=== PATIENT | male | born 1945 | race Caucasian/White ===

== ENCOUNTER 2017-10-21 22:11 | Observation (INO) | payer MEDICARE, MEDICAID ==
[~2017-10-21] VITALS: Ht 182.9 cm; Wt 80.0 kg
[~2017-10-21 22:11] MED LIST: ACET325S8 PR; DUONI NEB; KCL20 PO; LACTGRA PO; LEVA750T PO; LISI-360 PO; NEUR300C PO; THIA100T PO
[2017-10-21 22:30] VITALS: BP 185/84; PULSE 59; RESP 12; TEMP 98.7; O2SAT 95
[2017-10-21 22:36] VITALS: RESP 12; O2SAT 95
[2017-10-21] MEDS ORDERED: SODIUM CHLORIDE 0.9% FLUSH 10 ML FLUSH IV FLUSH PRN (22:45)
--- NOTE | 2017-10-21 22:52 | RADRPT ---
EXAM DATE/TIME: 10/21/2017 22:41 [facility] COMPARISON: No previous studies available for comparison. INDICATIONS : Altered mental status. RADIATION DOSE: 56.35 CTDIvol (mGy) MEDICAL HISTORY : Hepatitis C. Substance abuse. SURGICAL HISTORY : None. ENCOUNTER: Initial ACUITY: 1 day PAIN SCALE: 0/10 LOCATION: cranial TECHNIQUE: Multiple contiguous axial images were obtained of the head. Using automated exposure control and adj ustment of the mA and/or kV according to patient size, radiation dose was kept as low as reasonably a chievable to obtain optimal diagnostic quality images. DICOM format image data is available electro nically for review and comparison. FINDINGS: CEREBRUM: The ventricles and cortical sulci are widened there is a 1 cm cystic area seen in the posterior infer ior right frontal lobe likely related to a old lacunar infarct. There is decreased density in the per iventricular white matter. No evidence of midline shift, mass lesion, hemorrhage or acute infarction . No extra-axial fluid collections are seen. POSTERIOR FOSSA: The cerebellum and brainstem are intact. The 4th ventricle is midline. The cerebellopontine angle i s unremarkable. EXTRACRANIAL: The visualized portion of the orbits is intact. SKULL: The calvaria is intact. No evidence of skull fracture. CONCLUSION: 1. An acute abnormality is not seen. 2. Atrophy. 3. Suspected old lacunar infarct at the posterior inferior right frontal lobe. 4. Mild increased density in the periventricular region likely related to small vessel ischemic pappas keturah Waldron MD on October 21, 2017 at 22:48 Board Certified Radiologist. This report was verified electronically.
[2017-10-21 22:54] LABS: AUTOMATED NEUTROPHIL # 3.6 TH/MM3 (1.8-7.7); BASOPHIL # 0.1 TH/MM3 (0-0.2); BASOPHIL % 1.2 % (0.0-2.0); EOSINOPHIL # 0.1 TH/MM3 (0-0.4); EOSINOPHIL % 1.8 % (0.0-4.0); HEMATOCRIT 45.7 % (39.0-51.0); HEMOGLOBIN 15.7 GM/DL (13.0-17.0); LYMPH % 45.5 % (9.0-44.0); LYMPHOCYTE # 3.6 TH/MM3 (1.0-4.8); MEAN CELL VOLUME 92.9 FL (80.0-100.0); MEAN CORPUSCULAR HEMOGLOBIN 31.8 PG (27.0-34.0); MEAN CORPUSCULAR HGB CONC 34.3 % (32.0-36.0); MEAN PLATELET VOLUME 9.3 FL (7.0-11.0); MONO % 6.7 % (0.0-8.0); MONOCYTE # 0.5 TH/MM3 (0-0.9); NEUT % 44.8 % (16.0-70.0); PLATELET COUNT 165 TH/MM3 (150-450); RED BLOOD COUNT 4.92 MIL/MM3 (4.50-5.90); RED CELL DISTRIBUTION WIDTH 13.4 % (11.6-17.2)
[2017-10-21 22:56] LABS: BILIRUBIN, URINE NEG (NEG); BLOOD, URINE NEG (NEG); GLUCOSE,URINE NEG (NEG); KETONE, URINE NEG (NEG); NITRITE,URINE NEG (NEG); PH, URINE 6.5 (5.0-8.5); URINE COLOR YELLOW (YELLW/STRAW); URINE LEUKOCYTE ESTERASE NEG (NEG)
[2017-10-21 23:09] LABS: INTERNATIONAL NORMALIZED RATIO 1.1 RATIO; PROTHROMBIN TIME - PATIENT 11.1 SEC (9.8-11.6)
[2017-10-21 23:11] LABS: ALT (GPT) 86 U/L (12-78)
--- NOTE | 2017-10-21 23:12 | RADRPT ---
EXAM DATE/TIME: 10/21/2017 22:48 [facility] COMPARISON: No previous studies available for comparison. INDICATIONS : Short of breath after syncopal episode. MEDICAL HISTORY : Hepatitis C. Substance abuse. SURGICAL HISTORY : None. ENCOUNTER: Initial ACUITY: 1 day PAIN SCORE: 0/10 LOCATION: Bilateral chest FINDINGS: Mild bibasilar atelectasis. No pleural effusion. No pneumothorax. Heart size within normal limits. CONCLUSION: Trace bibasilar atelectasis. Otherwise negative. Charlie Juarez MD on October 21, 2017 at 23:10 Board Certified Radiologist. This report was verified electronically.
[2017-10-21 23:14] LABS: ALKALINE PHOSPHATASE 111 U/L (45-117); TOTAL BILIRUBIN ADULT 0.4 MG/DL (0.2-1.0); TOTAL PROTEIN 8.2 GM/DL (6.4-8.2); TROPONIN I 0.02 NG/ML (0.02-0.05)
[2017-10-21 23:22] LABS: ALBUMIN 3.2 GM/DL (3.4-5.0); AST (GOT) 72 U/L (15-37); BICARBONATE 27.3 MEQ/L (21.0-32.0); BLOOD UREA NITROGEN 17 MG/DL (7-18); CHLORIDE 105 MEQ/L (98-107); CREATININE 1.05 MG/DL (0.60-1.30); GLOMERULAR FILTRATION RATE 70 ML/MIN (>89); GLUCOSE,RANDOM 110 MG/DL (74-106); SODIUM (NA) 143 MEQ/L (136-145)
[2017-10-22] VITALS (11 sets, daily range): BP systolic 135–168; BP diastolic 82–92; PULSE 60–85; RESP 16–20; TEMP 97.5–98.3; O2SAT 92–97
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
[2017-10-22] MEDS ORDERED: SODIUM CHLORIDE 0.9% FLUSH 10 ML FLUSH IV FLUSH PRN (03:15)
[2017-10-22] MEDS ORDERED: DEXTROSE 50% IN WATER 50 ML VIAL(D50) IV PUSH PRN (03:15)
[2017-10-22] MEDS ORDERED: GLUCAGON 1 MG/ML VIAL OTHER PRN (03:15)
[2017-10-22] MEDS ORDERED: ENALAPRILAT 1.25 MG/ML VIAL IV PUSH PRN (04:00)
--- NOTE | 2017-10-22 04:10 | HHI.HP ---
[facility] Admission Diagnosis AMS, TIA? Diagnoses: Chief Complaint: ams Travel History International Travel<30 Days: No Contact w/Intl Traveler <30 Da: No Traveled to Known Affected Are: No History of Present Illness 72 y/o male with a history of Hep C, depression, CAD,HTN and neuropathy was brought to the ED from his [facility] for altered mental status. Patient states he does not remember what happened. He is very sleepy at time of exam and only answers some questions. He is able to tell me where he is but not the date. He denies any chest pain. He denies any alcohol or drug use. Per EMS report he was found unresponsive and unable to move bilateral upper extremities, but resolved once arrived to hospital. Tox screen does show positive for opiates and benzodiazepines. Review of Systems Except as stated in HPI: all other systems reviewed are Neg Past Family Social History Past Medical History Hep C Depression CAD Past Surgical History Coronary angiogram and stenting Right orbit bone grafti Reported Medications Reported Meds & Active Scripts Active Reported Kcl 20 Meq Tab (Potassium Chloride) 20 Meq Tabcr 20 Meq PO DAILY 3 Days Lisinopril 10 Mg Tab 10 Mg PO DAILY Thiamine HCl 100 Mg Tab 100 Mg PO DAILY Levaquin 750 Mg Tab (Levofloxacin) 750 Mg Tab 750 Mg PO DAILY 5 Days Tylenol (Acetaminophen) 325 Mg Sup 325 Mg MA Q6H PRN Lactinex (Lactobacillus Acidophilus) 1 Gm Gra 1 Gm PO TID 7 Days Resp: Albuterol/Ipratropium 2.5 Mg/0.5 Mg (Albuterol/Ipratropium) 1 Amp Nebu 1 Amp NEB Q6H PRN Neurontin (Gabapentin) 300 Mg Cap 300 Mg PO 5 TIMES A DAY Allergies: Coded Allergies: penicillin G (Unverified Allergy, Unknown, 01/27/17) Active Ordered Medications Current Medications Medications (Trade) Dose Ordered Sig/Shirlene Route Start Time Stop Time Status Last Admin (NS Flush) 2 ml BID IV FLUSH 10/22/17 09:00 (NS Flush) 2 ml UNSCH PRN IV FLUSH 5/10/18 03:15 (Aspirin Chew) 81 mg DAILY PO 10/22/17 09:00 (NovoLOG SUPPLEMENTAL SCALE) 1 ACHS SQ 10/22/17 08:00 (D50w (Vial) Inj) 50 ml UNSCH PRN IV PUSH 10/22/17 03:15 (Glucagon Inj) 1 mg UNSCH PRN OTHER 10/22/17 03:15 Family History Patient does not know family history Social History Tobacco use: Denies Alcohol use: Denies Physical Exam Vital Signs Vital Signs Date Time Temp Pulse Resp B/P (MAP) Pulse Ox O2 Delivery O2 Flow Rate FiO2 10/21/17 22:36 12 95 Room Air 10/21/17 22:33 59 12 95 Room Air 10/21/17 22:30 98.7 59 12 185/84 (117) 95 Physical Exam GENERAL: This is a well-nourished, well-developed patient, in no apparent distress. SKIN: No rashes, ecchymoses or lesions. Cool and dry. HEAD: Atraumatic. Normocephalic. EYES: Pupils equal round and reactive. NECK: Trachea midline. No JVD or lymphadenopathy. CARDIOVASCULAR: Regular rate and rhythm without murmurs, gallops, or rubs. RESPIRATORY: Clear to auscultation. Breath sounds equal bilaterally. No wheezes , rales, or rhonchi. GASTROINTESTINAL: Abdomen soft, non-tender, nondistended. No hepato-splenomegaly , or palpable masses. No guarding. MUSCULOSKELETAL: Extremities without clubbing, cyanosis, or edema. No joint tenderness, effusion, or edema noted. No calf tenderness. NEUROLOGICAL: sleepy and oriented x 2. Motor and sensory grossly within normal limits. 4 out of 5 muscle strength in all muscle groups. Normal speech. Laboratory Laboratory Tests Test 10/21/17 22:30 10/21/17 22:40 Urine Color YELLOW Urine Turbidity CLEAR Urine pH 6.5 Urine Specific [place] 1.013 Urine Protein NEG Urine Glucose (UA) NEG Urine Ketones NEG Urine Occult Blood NEG Urine Nitrite NEG Urine Bilirubin NEG Urine Urobilinogen 4.0 Urine Leukocyte Esterase NEG Urine RBC LESS THAN 1 Urine WBC 1 Microscopic Urinalysis Comment CATH-CULT NOT IND Urine Opiates Screen POS Urine Barbiturates Screen NEG Urine Amphetamines Screen NEG Urine Benzodiazepines Screen POS Urine Cocaine Screen NEG Urine Cannabinoids Screen NEG White Blood Count 8.0 Red Blood Count 4.92 Hemoglobin 15.7 Hematocrit 45.7 Mean Corpuscular Volume 92.9 Mean Corpuscular Hemoglobin 31.8 Mean Corpuscular Hemoglobin Concent 34.3 Red Cell Distribution Width 13.4 Platelet Count 165 Mean Platelet Volume 9.3 Neutrophils (%) (Auto) 44.8 Lymphocytes (%) (Auto) 45.5 Monocytes (%) (Auto) 6.7 Eosinophils (%) (Auto) 1.8 Basophils (%) (Auto) 1.2 Neutrophils # (Auto) 3.6 Lymphocytes # (Auto) 3.6 Monocytes # (Auto) 0.5 Eosinophils # (Auto) 0.1 Basophils # (Auto) 0.1 CBC Comment DIFF FINAL Differential Comment Prothrombin Time 11.1 Prothromb Time International Ratio 1.1 Activated Partial Thromboplast Time 23.6 Blood Urea Nitrogen 17 Creatinine 1.05 Random Glucose 110 Total Protein 8.2 Albumin 3.2 Calcium Level 9.0 Alkaline Phosphatase 111 Aspartate Amino Transf (AST/SGOT) 72 Alanine Aminotransferase (ALT/SGPT) 86 Total Bilirubin 0.4 Sodium Level 143 Potassium Level 3.8 Chloride Level 105 Carbon Dioxide Level 27.3 Anion Gap 11 Estimat Glomerular Filtration Rate 70 Ammonia 22 Total Creatine Kinase 63 Troponin I 0.02 Ethyl Alcohol Level LESS THAN 3 Result Diagram: 10/21/17223910/21/172239 Imaging Last Impressions Head CT 10/21/172231 Signed Impressions: Service Date/Time: Saturday, October 21, 2017 22:41 - CONCLUSION: 1. An acute abnormality is not seen. 2. Atrophy. 3. Suspected old lacunar infarct at the posterior inferior right frontal lobe. 4. Mild increased density in the periventricular region likely related to small vessel ischemic change. Charlie Waldron MD Chest X-Ray 10/21/172231 Signed Impressions: Service Date/Time: Saturday, October 21, 2017 22:48 - CONCLUSION: Trace bibasilar atelectasis. Otherwise negative. MD Waldo Osorioi VTE Risk Assessment Caprini VTE Risk Assessment: No/Low Risk (score <= 1) Caprini Risk Assessment Model Point Value = 1 Point Value = 2 Point Value = 3 Point Value = 5 Age 41-60 Minor surgery BMI > 25 kg/m2 Swollen legs Varicose veins or History of unexplained or recurrent spontaneous Oral contraceptives or hormone replacement Sepsis (< 1 month) Serious lung disease, including pneumonia (< 1 month) Abnormal pulmonary function Acute myocardial infarction Congestive heart failure (< 1 month) History of inflammatory bowel disease Medical patient at bed rest Age 61-74 Arthroscopic surgery Major open surgery (> 45 min) Laparoscopic surgery (> 45 min) Malignancy Confined to bed (> 72 hours) Immobilizing plaster cast Central venous access Age >= 75 History of VTE Family history of VTE Factor V Leiden Prothrombin [id number] Lupus anticoagulant Anticardiolipin antibodies Elevated serum homocysteine Heparin-induced thrombocytopenia Other congenital or acquired thrombophilia Stroke (< 1 month) Elective arthroplasty Hip, pelvis, or leg fracture Acute spinal cord injury (< 1 month) Prophylaxis Regimen Total Risk Factor Score Risk Level Prophylaxis Regimen 0-1 Low Early ambulation 2 Moderate Order ONE of the following: *Sequential Compression Device (SCD) *Heparin 5000 units SQ BID 3-4 Higher Order ONE of the following medications: *Heparin 5000 units SQ TID *Enoxaparin/Lovenox 40 mg SQ daily (WT < 150 kg, CrCl > 30 mL/min) *Enoxaparin/Lovenox 30 mg SQ daily (WT < 150 kg, CrCl > 10-29 mL/min) *Enoxaparin/Lovenox 30 mg SQ BID (WT < 150 kg, CrCl > 30 mL/min) AND/OR *Sequential Compression Device (SCD) 5 or more Highest Order ONE of the following medications: *Heparin 5000 units SQ TID (Preferred with Epidurals) *Enoxaparin/Lovenox 40 mg SQ daily (WT < 150 kg, CrCl > 30 mL/min) *Enoxaparin/Lovenox 30 mg SQ daily (WT < 150 kg, CrCl > 10-29 mL/min) *Enoxaparin/Lovenox 30 mg SQ BID (WT < 150 kg, CrCl > 30 mL/min) AND *Sequential Compression Device (SCD) Assessment and Plan Problem List: (1) Altered mental status ICD Code: R41.82 - Altered mental status Status: Acute Assessment and Plan 72 y/o male with a history of Hep C, depression, CAD,HTN and neuropathy was brought to the ED from his [facility] for altered mental status. AMS, suspect due to polypharmacy, possible TIA Head CT reviewed and shows no acute abnormality, old lacunar infarct at the posterior inferior right frontal lobe Tox screen shows positive benzo and opiates -MRI ordered -PT/OT/ST -Lipid panel and A1C ordered -Consult neurology -Awaiting med rec from [facility] -2d echo, US carotids ordered -Hold home gabapentin HTN, chronic -vasotec prn until med rec if verified, monitor vitals DVT prophylaxis: SCDs Discussed Condition With Patient Problem Qualifiers (1) Altered mental status: Qualified Codes: R41.82 - Altered mental status, unspecified Britni Smart October 22, 2017 04:10
[2017-10-22] MEDS ORDERED: ASPI-516 CHEW (05:22)
[2017-10-22] MEDS ORDERED: DULO1CAP3 PO (05:22)
[2017-10-22] MEDS ORDERED: OMEP20TA93 PO (05:22)
[2017-10-22] MEDS ORDERED: HYDR-3133 PO (05:22)
[2017-10-22] MEDS ORDERED: VARE1 PO (05:22)
[2017-10-22] MEDS ORDERED: GABA600T PO (05:22)
[2017-10-22] MEDS ORDERED: CYAN1TAB24 (05:22)
[2017-10-22] MEDS ORDERED: MORP1TAB24 PO (05:22)
[2017-10-22] MEDS: INSULIN ASPART SUPPLEMENTAL SCALE SQ SCH ×4 (08:00→21:00)
[2017-10-22] MEDS: DULoxetine HCl DR 60 MG CAP PO SCH (08:47)
[2017-10-22] MEDS: SODIUM CHLORIDE 0.9% FLUSH 10 ML FLUSH IV FLUSH SCH ×2 (08:47→21:00)
--- NOTE | 2017-10-22 08:50 | RADRPT ---
EXAM DATE/TIME: 10/22/2017 07:50 [facility] COMPARISON: No previous studies available for comparison. INDICATIONS : Transient ischemic attack. MEDICAL HISTORY : Hypertension. Chronic obstructive pulmonary disease. Hepatitis C. Neuropathy. Coronary artery disease . Depression. Anxiety. SURGICAL HISTORY : Stent placement. Fractured right orbit with bone graft repair. ENCOUNTER: Initial ACUITY: 2 days PAIN SCORE: 0/10 LOCATION: Bilateral neck PEAK SYSTOLIC VELOCITIES (cm/sec): ICA/CCA RATIO: Right: 0.8 Left: 0.8 ICA: Right: 60 Left: 107 CCA: Right: 76 Left: 92 ECA: Right: 62 Left: 107 VERTEBRAL: Right: 49 antegrade Left: 42 antegrade Elevated flow velocities and ICA/CCA ratios have been found to correlate with increased degrees of vessel stenosis, calculated as percentage of diameter relative to a normal segment of distal ICA/CCA FINDINGS: RIGHT CAROTID: Minimal soft plaque in the right carotid bulb. The waveforms are within normal limits. LEFT CAROTID: No significant stenosis is visualized. The waveforms are within normal limits. VERTEBRAL ARTERIES: Antegrade flow is seen in both vertebral arteries. MISCELLANEOUS: None. CONCLUSION: 1. Minimal soft plaque in right carotid bulb. No significant atherosclerotic disease on the left. 2. Otherwise, no sonographic or Doppler findings of a hemodynamically significant stenosis. Antegrade flow in both vertebral arteries. Hari Demarco MD on October 22, 2017 at 8:46 Board Certified Radiologist. This report was verified electronically.
[2017-10-22] MEDS ORDERED: ASPIRIN 81 MG CHEW TAB PO SCH (09:00)
[2017-10-22] MEDS ORDERED: PANTOPRAZOLE SOD 20 MG DELAYED RELEASE TAB PO SCH (09:00)
--- NOTE | 2017-10-22 10:02 | MB ---
cc: Abdirizak Loja MD DATE: 10/22/2017 HISTORY OF PRESENT ILLNESS: A 72-year-old right-handed man with a history of cardiac stent, hepatitis C, low back pain. He takes morphine 15 mg t.i.d. Some neuropathy, who lives in an [facility], walks with a cane or walker due to low back pain. 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 He does take 81 mg of aspirin a day. He quit smoking 3 days ago. He quit Chantix about 2 days ago. About 6 months ago, he had an episode where when he woke up, he could not control his arms or legs. It was brief and then for the last 4 days this happened quite a few times and if he takes a nap or in the morning he would wake up and he cannot control his arms or legs. Nothing above the neck. No neck pain. No headache, chest pain or palpitations. He has never had a seizure. No odd smells, tastes or dj vu. He has not woken up, wet the bed or bit his tongue. Does not happen during the day, only when he wakes up. He otherwise sleeps well. The ER note from the ER docs says EMS, he was noted to have an episode, he was unresponsive, slurred speech, difficulty moving both arms. This resolved. REVIEW OF SYSTEMS: Denies any diabetes, hypertension, hypercholesterolemia, atrial fibrillation, Coumadin, renal, pulmonary disease, thyroid disease, lupus, ulcer, cancer, seizure or stroke. SOCIAL HISTORY: He quit smoking 2 days ago, he quit drinking a year ago. Lives in [facility]. FAMILY HISTORY: Negative for cancer, seizure, stroke. ALLERGIES: PENICILLIN. MEDICATIONS: At home: Potassium, lisinopril, thiamine, Levaquin 750, Tylenol, Lactinex, Neurontin 300. He is also on morphine and tells me 15 t.i.d. and a baby aspirin a day. PAST MEDICAL HISTORY: Also some hypertension and depression. PHYSICAL EXAMINATION: VITAL SIGNS: Sinus rhythm, afebrile, 135/88, 18, 69. NECK: No carotid bruits. HEART: Regular rate and rhythm. I do not detect a murmur. NEUROLOGIC: Pupils are equal. Visual sanchez are full. Extraocular movements are intact without nystagmus. Face is symmetric with normal sensation. Tongue was midline. There is no drift. There is no asterixis. He has normal strength in upper and lower extremities bilaterally including all muscles of the arms and hands. DTRs are trace to absent throughout. Toes are downgoing bilaterally. There is no ankle clonus. Tone is normal throughout. Pinprick is intact throughout upper extremities, lower extremities and face and the occiput bilaterally. He is not ataxic on [id number] or [id number]. He had normal gait. Speech is fluent. He is not aphasic. LABORATORY DATA: CBC was normal. RPR has been negative in the past, remotely. Urine drug screen positive for opiates, benzos. UA is negative. Basic metabolic profile was normal. Glucose was normal. LFTs are elevated, higher than they were in 2014 with an AST of 72, ALT 86. Ammonia level is 22. Troponins negative. Thyroid was normal back in 2008. Coags normal. CBC unremarkable. Carotid ultrasound was negative and a CAT scan of his brain showed old inferior right deep frontal lobe encephalomalacia around region that appeared to be present on other old scans back in 2013 by report. Those films unable to pull-up. IMPRESSION: Unclear about the etiology from his reports. I was thinking he could have cervical spinal stenosis where his head is in a certain position that he cannot control his arms or legs. There is no evidence for myelopathy on exam. Check an MRI of the cervical spine. A TIA could be considered. The MRI of the brain has been ordered and we will check some additional blood work on him, an EEG. Continue on 325 of aspirin a day. I will be following him with you in the hospital. MD MUNIRA He/NARAYAN , 09:32 AM , 10:01 AM
[2017-10-22] MEDS ORDERED: GADODIAMIDE PF 287 MG/ML 20 ML VIAL (for RAD MRI) IVCONTRAST ONE ×2 (11:30→12:45)
--- NOTE | 2017-10-22 11:31 | RADRPT ---
EXAM DATE/TIME: 10/22/2017 10:59 [facility] COMPARISON: No previous studies available for comparison. INDICATIONS : Slurred speech. Weakness in both arms. CVA. MEDICAL HISTORY : Hepatitis C. Cardiovascular disease SURGICAL HISTORY : Coronary artery stent. Right orbital bone graft. ENCOUNTER: Subsequent ACUITY: 2 day PAIN SCORE: 0/10 LOCATION: head. Please note a normal MRA of the brain does not entirely exclude the possibility of a small aneurysm, nor the possibility of distal intracranial vessel disease. TECHNIQUE: 3D time of flight MRA was performed. Source images, multiplanar STS MIP, and 3D volume MIP reconstru ctions were reviewed. FINDINGS: There is excellent visualization of the major intracranial arteries out to the second-order branch ve ssels. There is no evidence for aneurysm, vessel truncation or stenosis, and no evidence for vascula r malformation. CONCLUSION: Normal examination. Charlie Frederick MD on October 22, 2017 at 11:25 Board Certified Radiologist. This report was verified electronically.
--- NOTE | 2017-10-22 12:11 | RADRPT ---
EXAM DATE/TIME: 10/22/2017 10:59 [facility] COMPARISON: No previous studies available for comparison. INDICATIONS : Slurred speech. Weakness in both arms. CVA. CONTRAST: 20 cc Omniscan (gadodiamide) IV MEDICAL HISTORY : Hepatitis C. Cardiovascular disease SURGICAL HISTORY : Carotid endarterectomy. Right orbital bone graft. ENCOUNTER: Subsequent ACUITY: 2 day PAIN SCORE: 0/10 LOCATION: head. TECHNIQUE: Multiplanar, multisequence MRI of the brain was performed both prior to and following the administrat ion of paramagnetic contrast. FINDINGS: CEREBRUM: The ventricles and cortical sulci are widened. There is an oval 1 cm cystic area seen in the inferior medial posterior right frontal lobe without mass effect. No evidence of midline shift, mass lesion, hemorrhage or acute infarction. No extraaxial fluid collections are seen. The pituitary gland and suprasellar cistern are normal in configuration. WHITE MATTER: There are scattered and increased signal in the periventricular white matter. POSTERIOR FOSSA: The cerebellum and brainstem are intact. The 4th ventricle is midline. The cerebellopontine angle is unremarkable. The cerebellar tonsils are normal in position. DIFFUSION IMAGING: No focal areas of restricted diffusion are seen. No evidence of acute infarction. EXTRACRANIAL: The visualized portions of the orbits and paranasal sinuses are unremarkable. POST-CONTRAST: No abnormal areas of parenchymal or dural enhancement. No evidence of blood-brain barrier breakdown. CONCLUSION: 1. No acute abnormality seen. 2. Age-related atrophy and suspected small vessel ischemic change in the white matter. 3. 1 cm cystic area in the right frontal lobe likely related to a focal area of encephalomalacia from prior insult. Charlie Waldron MD on October 22, 2017 at 12:02 Board Certified Radiologist. This report was verified electronically.
--- NOTE | 2017-10-22 12:11 | HHI.PR ---
Subjective Remarks Follow-up AMS/TIA/rule out cervical spinal stenosis October 22, 2017-patient seen and examined, reports some improvement of symptoms since admission. Objective Vitals Vital Signs Date Time Temp Pulse Resp B/P (MAP) Pulse Ox O2 Delivery O2 Flow Rate FiO2 10/22/17 11:57 97.7 85 20 160/92 (114) 92 10/22/17 07:56 97.8 69 18 135/88 (104) 93 10/22/17 07:20 70 10/22/17 06:08 60 10/22/17 05:23 10/22/17 05:18 98.3 64 16 146/90 (108) 97 10/22/17 05:14 98.3 64 16 146/90 (108) 97 10/22/17 04:23 61 17 164/84 (110) 95 Room Air 10/21/17 22:36 12 95 Room Air 10/21/17 22:33 59 12 95 Room Air 10/21/17 22:30 98.7 59 12 185/84 (117) 95 Result Diagram: 10/21/17223910/21/172239 Imaging Last Impressions Head Magnetic Resonance Angiography 10/22/1728 Signed Impressions: Service Date/Time: October 10:59 - CONCLUSION: Normal examination. Charlie Frederick MD Carotid Artery Ultrasound 10/22/17 0000 Signed Impressions: Service Date/Time: October 07:50 - CONCLUSION: 1. Minimal soft plaque in right carotid bulb. No significant atherosclerotic disease on the left. 2. Otherwise, no sonographic or Doppler findings of a hemodynamically significant stenosis. Antegrade flow in both vertebral arteries. Hari Demarco MD Head CT 10/21/172231 Signed Impressions: Service Date/Time: Saturday, October 21, 2017 22:41 - CONCLUSION: 1. An acute abnormality is not seen. 2. Atrophy. 3. Suspected old lacunar infarct at the posterior inferior right frontal lobe. 4. Mild increased density in the periventricular region likely related to small vessel ischemic change. Charlie Waldron MD Chest X-Ray 10/21/172231 Signed Impressions: Service Date/Time: Saturday, October 21, 2017 22:48 - CONCLUSION: Trace bibasilar atelectasis. Otherwise negative. Charlie Juarez MD Objective Remarks GENERAL: SKIN: Warm and dry. HEAD: Normocephalic. EYES: No scleral icterus. No injection or drainage. NECK: Supple, trachea midline. No JVD or lymphadenopathy. CARDIOVASCULAR: Regular rate and rhythm without murmurs, gallops, or rubs. RESPIRATORY: Breath sounds equal bilaterally. No accessory muscle use. GASTROINTESTINAL: Abdomen soft, non-tender, nondistended. MUSCULOSKELETAL: No cyanosis, or edema. BACK: Nontender without obvious deformity. No CVA tenderness. A/P Problem List: (1) Altered mental status ICD Code: R41.82 - Altered mental status Status: Acute Assessment and Plan 72-year-old man with AMS, suspect due to polypharmacy, possible TIA Rule out cervical spinal stenosis Head CT reviewed and shows no acute abnormality, old lacunar infarct at the posterior inferior right frontal lobe Tox screen shows positive benzo and opiates -brain/cervical MRI ordered -PT/OT/ST -Appreciate input from neurology -2d echo, US carotids ordered HTN, chronic -Allow for permissive hypertension DVT prophylaxis: SCDs Problem Qualifiers (1) Altered mental status: Qualified Codes: R41.82 - Altered mental status, unspecified Hamilton Noguera MD October 22, 2017 12:11
--- NOTE | 2017-10-22 12:17 | RADRPT ---
EXAM DATE/TIME: 10/22/2017 10:59 [facility] COMPARISON: No previous studies available for comparison. INDICATIONS : Stenosis. CONTRAST: 20 cc Omniscan (gadodiamide) IV MEDICAL HISTORY : Hepatitis C. Cardiovascular disease SURGICAL HISTORY : Coronary artery stent. Right orbital bone graft. ENCOUNTER: Subsequent ACUITY: 2 day PAIN SCORE: 0/10 LOCATION: neck. Percent stenosis is calculated using the diameter of the stenotic region over the diameter of the nor mal distal internal carotid artery. TECHNIQUE: Bolus infused MRA of the extracranial circulation was performed using a neurovascular coil. Post pro cessing was performed including rotating subvolume maximum intensity projections of each carotid chi ry, rotating full volume maximum intensity projections of both carotid arteries, sagittal and coronal sliding thin slab reformations of each carotid artery, and left oblique sliding thin slab reformatio n through the aortic arch to include the origin of the arch branch vessels. FINDINGS: AORTIC ARCH: There is a three vessel origin of the great vessels from the aorta. No evidence of ostial narrowing. RIGHT CAROTID: The common carotid artery is intact. The carotid bulb has a normal configuration without ulceration or narrowing. The internal carotid artery lumen is smooth without stenosis. The external carotid ar rambo is intact. LEFT CAROTID: The common carotid artery is intact. The carotid bulb has a normal configuration without ulceration or narrowing. The internal carotid artery lumen is smooth without stenosis. The external carotid ar rambo is intact. VERTEBRALS: The vertebral arteries have a symmetric diameter. No stenotic lesions are seen. CONCLUSION: Normal examination. Charlie Waldron MD on October 22, 2017 at 12:10 Board Certified Radiologist. This report was verified electronically.
--- NOTE | 2017-10-22 12:22 | RADRPT ---
EXAM DATE/TIME: 10/22/2017 10:59 [facility] COMPARISON: No previous studies available for comparison. INDICATIONS : Bilateral arm weakness. MEDICAL HISTORY : Hepatitis C. Cardiovascular disease SURGICAL HISTORY : Coronary artery stent. Right orbital bone graft. ENCOUNTER: Subsequent ACUITY: 2 day PAIN SCORE: 0/10 LOCATION: neck. TECHNIQUE: Multiplanar, multisequence MRI examination of the cervical spine was performed. FINDINGS: VERTEBRAE: Normal vertebral body height. Homogeneous marrow signal. ALIGNMENT: No evidence of subluxation. CORD: Normal configuration and signal. POST FOSSA: The cerebellar tonsils are normal in position. C2-C3: The thecal sac has a normal configuration. There is no evidence of disc herniation or spinal canal s tenosis. The neural foramina are patent bilaterally. C3-C4: The thecal sac has a normal configuration. There is no evidence of disc herniation or spinal canal s tenosis. The neural foramina are patent bilaterally. C4-C5: The thecal sac has a normal configuration. There is no evidence of disc herniation or spinal canal s tenosis. The neural foramina are patent bilaterally. C5-C6: There is mild central disc protrusion causing a mild impression on the thecal sac. There is a thin la jas of CSF surrounding the cord. The neural foramina are patent bilaterally. C6-C7: The thecal sac has a normal configuration. There is no evidence of disc herniation or spinal canal s tenosis. The neural foramina are patent bilaterally. C7-T1: The thecal sac has a normal configuration. There is no evidence of disc herniation or spinal canal s tenosis. The neural foramina are patent bilaterally. CONCLUSION: Mild central disc protrusion at the C5-C6 level. Charlie Waldron MD on October 22, 2017 at 12:16 Board Certified Radiologist. This report was verified electronically.
[2017-10-22] MEDS: SODIUM CHLOR 0.9% 1000 ML INJ 1,000 ML IV SCH ×2 (12:44→23:54)
[2017-10-22] MEDS: ASPIRIN EC 325 MG TABEC PO SCH (12:44)
[2017-10-22] MEDS ORDERED: PANTOPRAZOLE SOD 40 MG DELAYED RELEASE TAB PO ONE (13:30)
[2017-10-22 13:49] LABS: C-REACTIVE PROTEIN 0.78 MG/DL (0.00-0.30)
[2017-10-22] MEDS ORDERED: PANTOPRAZOLE SOD 20 MG DELAYED RELEASE TAB PO ONE (14:00)
[2017-10-22 14:15] LABS: RHEUMATOID FACTOR SCREEN NEGATIVE (NEGATIVE)
[2017-10-22 14:34] LABS: CHOLESTEROL/ HDL RATIO 3.94 RATIO; FOLATE 12.8 NG/ML (3.1-17.5); FREE T4 0.95 NG/DL (0.76-1.46); HDL CHOLESTEROL 47.4 MG/DL (40.0-60.0)
--- NOTE | 2017-10-22 16:05 | MG ---
cc: Jena Vizcaino MD DATE OF : 1945 AGE: [age] years old. EEG NUMBER: [id number] REFERRING PHYSICIAN: MD Harsha ROOM: H90. NOTE: Awake. Hyperventilation and photic done. CT showing atrophy, old lacune of the brain at the posterior frontal right lobe. Admitted with change in mental status, unresponsive, some slurred speech. History of hypertension, hepatitis C, alcohol, tobacco use. MEDICATIONS: 1. Aspirin. 2. Insulin. 3. Cymbalta. 4. Protonix. DESCRIPTION OF RECORD: The patient has an overall background of 8 Hz, 40 microvolts. A lot of eye movement, muscle artifact is seen. Photic stimulation was done with a posterior driving response, washcloth over the patient's eyes. Overall normal alpha rhythm, symmetrical background. No epileptic activity. IMPRESSION: Normal EEG without any epileptiform features. Clinical correlation. Jena Vizcaino MD DF/CHRISTIAN , 03:41 PM , 04:04 PM
[2017-10-22 17:01] LABS: HEMOGLOBIN A1C 5.7 % (4.3-6.0)
--- NOTE | 2017-10-22 19:43 | EKG ---
Date Performed: 10/21/2017 Time Performed: 22:23:31 PTAGE: 72 years EKG: Sinus rhythm NORMAL ECG Since the PREVIOUS TRACING , no significant change noted PREVIOUS TRACIN12/22/2011 12.56 DOCTOR: Alok Lee Interpretating Date/Time 10/22/2017 19:42:44
[2017-10-23 03:43] VITALS: BP 151/72; PULSE 67; RESP 16; TEMP 97.7; O2SAT 93
--- NOTE | 2017-10-23 07:02 | HHI.PR ---
Objective Vital Signs Date Time Temp Pulse Resp B/P (MAP) Pulse Ox O2 Delivery O2 Flow Rate FiO2 10/23/17 03:43 97.7 67 16 151/72 (98) 93 10/22/17 23:37 97.5 79 16 168/87 (114) 96 10/22/17 23:05 74 10/22/17 21:04 97.5 64 18 156/82 (106) 95 10/22/17 16:46 97.6 73 19 144/85 (104) 94 10/22/17 11:57 97.7 85 20 160/92 (114) 92 10/22/17 07:56 97.8 69 18 135/88 (104) 93 10/22/17 07:20 70 Result Diagram: 10/21/17223910/21/172239 Objective Remarks awakens no asterixis moves all well now Assessment and Plan Assessment and Plan imp mri/a/a nl eeg nl labs abg ok ldl inc med team could sart statin but hx lft inc could make worse acc to nurse some myoclonic jerks at times at noc we will set up sleep study o/p if echo nl ok to dc and fu office Abdirizak Loja MD October 23, 2017 07:02
[2017-10-23 07:24] LABS: AUTOMATED NEUTROPHIL # 3.3 TH/MM3 (1.8-7.7); BASOPHIL % 0.5 % (0.0-2.0); EOSINOPHIL # 0.1 TH/MM3 (0-0.4); EOSINOPHIL % 1.5 % (0.0-4.0); HEMATOCRIT 45.6 % (39.0-51.0); HEMOGLOBIN 15.6 GM/DL (13.0-17.0); LYMPH % 37.8 % (9.0-44.0); LYMPHOCYTE # 2.3 TH/MM3 (1.0-4.8); MEAN CORPUSCULAR HEMOGLOBIN 31.5 PG (27.0-34.0); MEAN CORPUSCULAR HGB CONC 34.3 % (32.0-36.0); MEAN PLATELET VOLUME 9.3 FL (7.0-11.0); MONO % 6.4 % (0.0-8.0); MONOCYTE # 0.4 TH/MM3 (0-0.9); NEUT % 53.8 % (16.0-70.0); PLATELET COUNT 164 TH/MM3 (150-450); RED BLOOD COUNT 4.96 MIL/MM3 (4.50-5.90); RED CELL DISTRIBUTION WIDTH 13.4 % (11.6-17.2); WHITE BLOOD COUNT 6.2 TH/MM3 (4.0-11.0)
[2017-10-23 07:59] LABS: CHOLESTEROL/ HDL RATIO 4.14 RATIO; HDL CHOLESTEROL 44.4 MG/DL (40.0-60.0)
[2017-10-23] MEDS: INSULIN ASPART SUPPLEMENTAL SCALE SQ SCH ×2 (08:00→12:00)
[2017-10-23 08:12] VITALS: BP 189/90; PULSE 68; RESP 20; TEMP 98.9; O2SAT 96
[2017-10-23] MEDS: DULoxetine HCl DR 60 MG CAP PO SCH (08:15)
[2017-10-23] MEDS: SODIUM CHLORIDE 0.9% FLUSH 10 ML FLUSH IV FLUSH SCH (08:16)
[2017-10-23] MEDS: ASPIRIN EC 325 MG TABEC PO SCH (08:16)
[2017-10-23] MEDS ORDERED: PANTOPRAZOLE SOD 20 MG DELAYED RELEASE TAB PO SCH (09:00)
[2017-10-23] MEDS ORDERED: PANTOPRAZOLE SOD 40 MG DELAYED RELEASE TAB PO SCH (09:00)
[2017-10-23] MEDS ORDERED: INFLUENZA VIRUS VACCINE (QUADRIVALENT) 0.5 ML SYR IM ONE (10:00)
--- NOTE | 2017-10-23 10:04 | HHI.PR ---
Subjective Remarks Follow-up AMS/TIA/rule out cervical spinal stenosis October 22, 2017-patient seen and examined, reports some improvement of symptoms since admission. October 23, 2017-patient seen and examined, alert and oriented 3, no acute event overnight. Objective Vitals Vital Signs Date Time Temp Pulse Resp B/P (MAP) Pulse Ox O2 Delivery O2 Flow Rate FiO2 10/23/17 08:12 98.9 68 20 189/90 (123) 96 10/23/17 03:43 97.7 67 16 151/72 (98) 93 10/22/17 23:37 97.5 79 16 168/87 (114) 96 10/22/17 23:05 74 10/22/17 21:04 97.5 64 18 156/82 (106) 95 10/22/17 16:46 97.6 73 19 144/85 (104) 94 10/22/17 11:57 97.7 85 20 160/92 (114) 92 Result Diagram: 10/23/17 0647 10/21/17 2240 Imaging Last Impressions Neck Magnetic Resonance Angiography 10/22/17927 Signed Impressions: Service Date/Time: October 10:59 - CONCLUSION: Normal examination. Charlie Waldron MD Head Magnetic Resonance Angiography 10/22/17927 Signed Impressions: Service Date/Time: October 10:59 - CONCLUSION: Normal examination. Charlie Frederick MD Cervical Spine MRI 10/22/17927 Signed Impressions: Service Date/Time: October 10:59 - CONCLUSION: Mild central disc protrusion at the C5-C6 level. Charlie Waldron MD Brain MRI 10/22/17927 Signed Impressions: Service Date/Time: October 10:59 - CONCLUSION: 1. No acute abnormality seen. 2. Age-related atrophy and suspected small vessel ischemic change in the white matter. 3. 1 cm cystic area in the right frontal lobe likely related to a focal area of encephalomalacia from prior insult. Charlie Waldron MD Carotid Artery Ultrasound 10/22/17 0000 Signed Impressions: Service Date/Time: October 07:50 - CONCLUSION: 1. Minimal soft plaque in right carotid bulb. No significant atherosclerotic disease on the left. 2. Otherwise, no sonographic or Doppler findings of a hemodynamically significant stenosis. Antegrade flow in both vertebral arteries. Hari Demarco MD Head CT 10/21/172231 Signed Impressions: Service Date/Time: Saturday, October 21, 2017 22:41 - CONCLUSION: 1. An acute abnormality is not seen. 2. Atrophy. 3. Suspected old lacunar infarct at the posterior inferior right frontal lobe. 4. Mild increased density in the periventricular region likely related to small vessel ischemic change. Charlie Waldron MD Chest X-Ray 10/21/172231 Signed Impressions: Service Date/Time: Saturday, October 21, 2017 22:48 - CONCLUSION: Trace bibasilar atelectasis. Otherwise negative. Charlie Juarez MD Objective Remarks GENERAL: NAD SKIN: Warm and dry. HEAD: Normocephalic. EYES: No scleral icterus. No injection or drainage. NECK: Supple, trachea midline. No JVD or lymphadenopathy. CARDIOVASCULAR: Regular rate and rhythm without murmurs, gallops, or rubs. RESPIRATORY: Breath sounds equal bilaterally. No accessory muscle use. GASTROINTESTINAL: Abdomen soft, non-tender, nondistended. MUSCULOSKELETAL: No cyanosis, or edema. BACK: Nontender without obvious deformity. No CVA tenderness. A/P Problem List: (1) Altered mental status ICD Code: R41.82 - Altered mental status Status: Acute Assessment and Plan 72-year-old man with AMS, suspect due to polypharmacy, possible TIA-Resolved Head CT reviewed and shows no acute abnormality, old lacunar infarct at the posterior inferior right frontal lobe Tox screen shows positive benzo and opiates -brain/cervical MRI normal -PT/OT/ST -Appreciate input from neurology -US carotids normal -EEG normal -2D echo pending HTN, chronic -start Low dose Lopressor 50mg BID Hyperlipidemia LDL elevated however secondary to elevated LFTs with holding stating statin DVT prophylaxis: SCDs Problem Qualifiers (1) Altered mental status: Qualified Codes: R41.82 - Altered mental status, unspecified Hamilton Noguera MD October 23, 2017 10:04
--- NOTE | 2017-10-23 10:05 | HHI.DS ---
Discharge Summary Admission Date October 22, 2017 at 03:06 Discharge Date: October 23, 2017 Admitting Diagnosis AMS, TIA? (1) Altered mental status ICD Code: R41.82 - Altered mental status Status: Acute Procedures none Brief History - From Admission 72 y/o male with a history of Hep C, depression, CAD,HTN and neuropathy was brought to the ED from his [facility] for altered mental status. Patient states he does not remember what happened. He is very sleepy at time of exam and only answers some questions. He is able to tell me where he is but not the date. He denies any chest pain. He denies any alcohol or drug use. Per EMS report he was found unresponsive and unable to move bilateral upper extremities, but resolved once arrived to hospital. Tox screen does show positive for opiates and benzodiazepines. CBC/BMP: 10/23/17 0647 10/21/17 2240 Significant Findings Laboratory Tests Test 10/21/17 22:30 10/21/17 22:40 10/22/17 09:43 10/22/17 13:08 Urine Urobilinogen 4.0 MG/DL (LESS THAN Urine Opiates Screen POS (NEG) Urine Benzodiazepines Screen POS (NEG) Lymphocytes (%) (Auto) 45.5 % (9.0-44.0) Activated Partial Thromboplast Time 23.6 SEC (24.3-30.1) Random Glucose 110 MG/DL (74-106) Albumin 3.2 GM/DL (3.4-5.0) Aspartate Amino Transf (AST/SGOT) 72 U/L (15-37) Alanine Aminotransferase (ALT/SGPT) 86 U/L (12-78) Estimat Glomerular Filtration Rate 70 ML/MIN (>89) Arterial Blood pH 7.43 (7.380-7.420) Arterial Blood Partial Pressure CO2 36 mmHg (38-42) Arterial Blood Oxygen Content 22.0 Vol % (12.0-20.0) Blood Gas Hemoglobin 16.4 G/DL (12.0-16.0) C-Reactive Protein 0.78 MG/DL (0.00-0.30) LDL Cholesterol 120 MG/DL (0-99) Test 10/23/17 06:47 LDL Cholesterol 122 MG/DL (0-99) Imaging Last Impressions Neck Magnetic Resonance Angiography 10/22/17927 Signed Impressions: Service Date/Time: October 10:59 - CONCLUSION: Normal examination. Charlie Waldron MD Head Magnetic Resonance Angiography 10/22/17927 Signed Impressions: Service Date/Time: October 10:59 - CONCLUSION: Normal examination. Charlie Frederick MD Cervical Spine MRI 10/22/17927 Signed Impressions: Service Date/Time: October 10:59 - CONCLUSION: Mild central disc protrusion at the C5-C6 level. Charlie Waldron MD Brain MRI 10/22/17927 Signed Impressions: Service Date/Time: October 10:59 - CONCLUSION: 1. No acute abnormality seen. 2. Age-related atrophy and suspected small vessel ischemic change in the white matter. 3. 1 cm cystic area in the right frontal lobe likely related to a focal area of encephalomalacia from prior insult. Charlie Waldron MD Carotid Artery Ultrasound 10/22/17 0000 Signed Impressions: Service Date/Time: October 07:50 - CONCLUSION: 1. Minimal soft plaque in right carotid bulb. No significant atherosclerotic disease on the left. 2. Otherwise, no sonographic or Doppler findings of a hemodynamically significant stenosis. Antegrade flow in both vertebral arteries. Hari Demarco MD Head CT 10/21/172231 Signed Impressions: Service Date/Time: Saturday, October 21, 2017 22:41 - CONCLUSION: 1. An acute abnormality is not seen. 2. Atrophy. 3. Suspected old lacunar infarct at the posterior inferior right frontal lobe. 4. Mild increased density in the periventricular region likely related to small vessel ischemic change. Charlie Waldron MD Chest X-Ray 10/21/172231 Signed Impressions: Service Date/Time: Saturday, October 21, 2017 22:48 - CONCLUSION: Trace bibasilar atelectasis. Otherwise negative. Charlie Juarez MD PE at Discharge GENERAL: NAD SKIN: Warm and dry. HEAD: Normocephalic. EYES: No scleral icterus. No injection or drainage. NECK: Supple, trachea midline. No JVD or lymphadenopathy. CARDIOVASCULAR: Regular rate and rhythm without murmurs, gallops, or rubs. RESPIRATORY: Breath sounds equal bilaterally. No accessory muscle use. GASTROINTESTINAL: Abdomen soft, non-tender, nondistended. MUSCULOSKELETAL: No cyanosis, or edema. BACK: Nontender without obvious deformity. No CVA tenderness. Hospital Course While in hospital, patient was treated for; AMS, suspect due to polypharmacy, possible TIA-Resolved Head CT reviewed and shows no acute abnormality, old lacunar infarct at the posterior inferior right frontal lobe Tox screen shows positive benzo and opiates -brain/cervical MRI normal -PT/OT/ST -Appreciate input from neurology -US carotids normal -2D echo pending HTN, chronic -He was started on low dose Lopressor 50mg BID Hyperlipidemia LDL elevated however secondary to elevated LFTs with holding stating statin DVT prophylaxis: SCDs Pt Condition on Discharge: Good Discharge Disposition: Discharge Home Discharge Time: <= 30 minutes Discharge Instructions DIET: Follow Instructions for: Heart Healthy Diet Activities you can perform: Regular-No Restrictions Follow up Referrals: Neurology PCP Follow-up - 1 Week New Medications: Metoprolol Tartrate (Lopressor) 50 Mg Tab 50 MG PO BID for Blood Pressure Management, #60 TAB 3 Refills Continued Medications: Aspirin (Aspirin) 81 Mg Chew 81 MG CHEW DAILY, TAB 0 Refills Cyanocobalamin (B12) 1,[address] (Duloxetine DR) 60 Mg Capdr 60 MG PO DAILY, #30 CAP 0 Refills Gabapentin (Gabapentin) 600 Mg Tab 600 MG PO TID, #90 TAB 0 Refills Hydroxyzine HCl (Hydroxyzine HCl) 25 Mg Tab 25 MG PO QID, TAB 0 Refills Morphine ER (Morphine ER) 15 Mg Tab 15 MG PO Q8H for Pain Management, TAB 0 Refills Omeprazole (Omeprazole) 20 Mg Tab 20 MG PO DAILY, #30 TAB 0 Refills Varenicline (Chantix) 1 Mg Tab 1 MG PO BIDPC for Smoking cessation, #60 TAB 0 Refills Hamilton Noguera MD October 23, 2017 10:05
[2017-10-23] MEDS ORDERED: METO-309 PO (10:07)
--- NOTE | 2017-10-23 10:21 | HHI.DCPOC ---
Discharge Care Plan Diagnosis: (1) Altered mental status (2) Hypertension, benign Goals to Promote Your Health * To prevent worsening of your condition and complications * To maintain your health at the optimal level Directions to Meet Your Goals Take your medications as prescribed Follow your dietary instruction Follow activity as directed Keep your appointments as scheduled Take your immunizations and boosters as scheduled If your symptoms worsen call your PCP, if no PCP go to Urgent Care Center or Emergency Room Smoking is Dangerous to Your Health. Avoid second hand smoke Call the 24-hour hour crisis hotline for domestic abuse at Kimberly Rasheed October 23, 2017 10:21
[2017-10-23] MEDS ORDERED: METOPROLOL TARTRATE 50 MG TAB PO SCH (10:30)
--- NOTE | 2017-10-23 11:01 | HHI.FF ---
Face to Face Verification Diagnosis: (1) Hypertension, benign (2) Altered mental status Physical Therapy Order: Evaluate and Treat Occupational Therapy Order: Evaluate and Treat Home Health Nursing Order: Signs/symptoms of disease process Medication education-adverse effect Nursing assessment with vital signs I have seen patient Juma Vee, LOI on 10/23/17. My clinical findings support the need for the requested home health care services because: Ltd mobility - disease progression Deconditioned w/ increased weakness Limited ability to care for self I certify that my clinical findings support that this patient is homebound because: Impaired cognitive ability/safety Kimberly Rasheed October 23, 2017 11:01
[2017-10-23 11:51] VITALS: BP 185/77; PULSE 72; RESP 20; TEMP 97.9; O2SAT 96
[2017-10-23] MEDS: SODIUM CHLOR 0.9% 1000 ML INJ 1,000 ML IV SCH (12:08)
[2017-10-23] MEDS ORDERED: ATOR10TA15 PO (16:30)
--- NOTE | 2017-10-23 17:21 | HM ---
Date Performed: 10/22/2017 Time Performed: 13:27:00 HOOKUP DATE: 10/22/17 01:27:00 PM Mai ANALYSIS START TIME: 10/22/2017 1:32:00 PM ANALYSIS END TIME: 10/23/2017 11:53:12 AM PATIENT AGE: 72 PATIENT HEIGHT PATIENT WEIGHT DRUG LIST PATIENT DIAGNOSIS: AMS TIA TEST NARRATIVE: The patient's average heart rate was 71 BPM. No episodes of tachycardia wer e noted. Heart rates less than 50 BPM were noted < 1% of the time. No pauses exceeding 2.0 secon ds were noted. 74 ventricular ectopics, which represented < 1% of the total beat count, were note d. The highest ventricular ectopic frequency occurred from 11:00 PM to 12:00 AM Fri. During this ti me 16 VE(s) occurred. Ventricular ectopics were observed as 74 isolated beat(s) only. No couplets o r runs were noted. 17 supraventricular ectopics, which represented < 1% of the total beat count, were noted. The highest supraventricular ectopic frequency occurred from 02:00 AM to 03:00 AM Fri. During this time 6 SVE(s) occurred. No episodes of ST depression (defined as -1.0 mm or more) wer e noted in channel 1. No episodes of ST depression (defined as -1.0 mm or more) were noted in channe l 2. No episodes of ST depression (defined as -1.0 mm or more) were noted in channel 3. no diary ayo ntained TEST INTERPRETATION: Sinus rhythm PVCs PACs Signed by : Herrera mast
--- NOTE | 2017-10-23 17:22 | ECHRPT ---
Indication: CVA/TIA CONCLUSIONS The left ventricular systolic function is normal with an estimated ejection fraction in the range of 60-65%. Normal left ventricular size. Wall thickness is normal. There was limited left ventricular wall motion assessment due to poor endocardial visualization. Trace mitral valve regurgitation. Calcification of the left coronary cusp. There is trace tricuspid valve regurgitation. BP: / HR: Rhythm: Sinus MEASUREMENTS (Male / Female) Normal Values Technical Quality:Fair 2D ECHO LV Diastolic Diameter PLAX 4.1 cm 4.2 - 5.9 / 3.9 - 5.3 cm LV Systolic Diameter PLAX 2.8 cm IVS Diastolic Thickness 1.1 cm 0.6 - 1.0 / 0.6 - 0.9 cm LVPW Diastolic Thickness 1.1 cm 0.6 - 1.0 / 0.6 - 0.9 cm LV Relative Wall Thickness 0.5 RV Internal Dim ED PLAX 2.4 cm LVOT Diameter 2.0 cm LA Systolic Diameter LX 3.1 cm 3.0 - 4.0 / 2.7 - 3.8 cm LV Ejection Fraction MOD 4C 61.5 % LV Ejection Fraction 4C AL 62.4 % M-MODE Aortic Root Diameter MM 2.3 cm LA Systolic Diameter MM 3.1 cm LA Ao Ratio MM 1.3 AV Cusp Separation MM 1.7 cm DOPPLER AV Peak Velocity 136.0 cm/s AV Peak Gradient 7.4 mmHg LVOT Peak Velocity 72.6 cm/s LVOT Peak Gradient 2.1 mmHg AV Area Cont Eq pk 1.7 cm MV Area PHT 2.5 cm Mitral E Point Velocity 100.0 cm/s Mitral A Point Velocity 89.3 cm/s Mitral E to A Ratio 1.1 LV E' Lateral Velocity 7.7 cm/s Mitral E to LV E' Lateral Ratio 13.0 LV E' Septal Velocity 5.4 cm/s Mitral E to LV E' Septal Ratio 18.7 TR Peak Velocity 229.0 cm/s TR Peak Gradient 21.0 mmHg Right Atrial Pressure 10.0 mmHg Pulmonary Artery Systolic Pressu 31.0 mmHg Right Ventricular Systolic Press 31.0 mmHg PV Peak Velocity 82.8 cm/s PV Peak Gradient 2.7 mmHg FINDINGS LEFT VENTRICLE The left ventricular systolic function is normal with an estimated ejection fraction in the range of 60-65%. Normal left ventricular size. Wall thickness is normal. There was limited left ventricular wall motion assessment due to poor endocardial visualization. RIGHT VENTRICLE Normal right ventricular size and systolic function. LEFT ATRIUM The left atrial size is normal. RIGHT ATRIUM The right atrial size is normal. ATRIAL SEPTUM Normal atrial septal thickness without atrial level shunting by limited color doppler interrogation. AORTA The aortic root and proximal ascending aorta are normal in size on limited imaging. MITRAL VALVE Structurally normal mitral valve. Trace mitral valve regurgitation. AORTIC VALVE Trileaflet aortic valve. Calcification of the left coronary cusp. TRICUSPID VALVE Structurally normal tricuspid valve. There is trace tricuspid valve regurgitation. PULMONARY VALVE No pulmonary valve regurgitation or stenosis. VESSELS The inferior vena cava is normal in size. PERICARDIUM No pericardial effusion. Alok Lee MD (Electronically Signed) Final Date:23 Oct 2017 17:21
[2017-10-24 15:30] LABS: METHYLMALONIC ACID 0.16 nmol/mL (<=0.40)
== END 2017-10-23 18:48 | disposition home or self-care (01) ==
LOC: NEPE 22:11 → NEDA 10-22 03:06 → NEPHCDU 10-22 04:52
PROVIDERS: ADMIT Hospitalist; ATTEND Hospitalist
DX: R41.82 Altered mental status, unspecified (principal); I25.10 Atherosclerotic heart disease of native coronary artery without angina pectoris; I10 Essential (primary) hypertension; G62.9 Polyneuropathy, unspecified; F32.9 Major depressive disorder, single episode, unspecified; B19.20 Unspecified viral hepatitis C without hepatic coma; Z95.5 Presence of coronary angioplasty implant and graft; M54.5 Low back pain; Z87.891 Personal history of nicotine dependence; R47.81 Slurred speech; R79.89 Other specified abnormal findings of blood chemistry; M50.222 Other cervical disc displacement at C5-C6 level; Z79.899 Other long term (current) drug therapy; E78.5 Hyperlipidemia, unspecified; Z86.73 Personal history of transient ischemic attack (TIA), and cerebral infarction without residual deficits; J98.11 Atelectasis; R06.02 Shortness of breath; I65.21 Occlusion and stenosis of right carotid artery
CPT/HCPCS: 36600; 70450; 70544; 70548; 70553; 71045; 72141; 80053; 80061; 80307; 81001; 82140; 82550; 82607; 82746; 82805; 82948; 83036; 83921; 84207; 84425; 84439; 84443; 84484; 85025; 85610; 85652; 85730; 86038; 86140; 86430; 92610; 93005; 93225; 93226; 93306; 93880; 95819; 96361; 96374; 97161; 97167; 99285; A9579; G0378; G8987; G8988; G8996; G8997; G8998; J7030

== ENCOUNTER 2018-03-20 02:57 | Observation (INO) ==
--- NOTE | 2018-03-20 03:09 | ED ---
HPI General Chief Complaint: Altered Mental Status Stated Complaint: poss stroke Time Seen by Provider: 03/20/18 03:03 History of Present Illness HPI narrative: Patient is a 73-year-old male with history of hepatitis C was brought from custodial for lethargy generalized weakness noted suddenly by his roommate at 1 AM when patient tried to get up his bed and accidentally fell. Patient as per roommate became lethargic very weak, with slurred speech. As per roommate patient was fine 3 hours ago at about midnight when both of them did not sleep. Patient is not a historian, looks very weak pupils are 3 mm , denies pain medication taken. Patient follows commands no weakness in his arms mild weakness equal in lower extremities. Patient has slurred speech, unable to understand his words. He denies any pain. Code stroke called. I discussed the case with his neurologist Dr. Loja. 0326 :received patient presents from custodial patient is on volume and lidocaine orally no other significant information given at this time. 0330: I spoke with custodial facility registered nurse name Ana and patient roommate Constantin Hernandez. They both told me that patient was seen at his normal condition at 9 PM before he went to sleep. His roommate was sleeping whole night and woke up when patient fell when he tried to stand up. Stroke alert ancelled, patient is not a candidate for TPA, he passed the window for treatment, also there is no clear evidence that patient has stroke symptoms. Related Data Home Medications Medication Instructions Recorded Confirmed diazepam 10 mg PO BID PRN 03/20/18 03/20/18 duloxetine 60 mg PO DAILY 03/20/18 03/20/18 gabapentin 300 mg PO TID 03/20/18 03/20/18 hydroxyzine HCl 25 mg PO QID PRN 03/20/18 03/20/18 metoprolol tartrate 50 mg PO BID 03/20/18 03/20/18 morphine 03/20/18 omeprazole 40 mg PO DAILY 03/20/18 03/20/18 ranitidine HCl [Zantac] 150 mg PO BID 03/20/18 03/20/18 tizanidine [Zanaflex] 2 mg PO TID PRN 03/20/18 03/20/18 Allergies Allergy/AdvReac Type Severity Reaction Status Date / Time penicillin G Allergy Unknown Unverified 01/27/17 16:48 Review of Systems ROS: all other systems reviewed are negative Neurologic Reports confusion and Reports weakness Comments: Slurred speech PMFSH Social History Social History Substance History: Unable to Obtain Second Hand Smoke Exposure: No Smoking Status: Cognitive impairment How Often Do You Have a Drink Containing Alcohol: Unable to Obtain Recent Travel in [facility] within the Last 8 Weeks: No Recent Out of Country Travel within the Last 8 Weeks: No Exam Narrative Exam Narrative: GENERAL: 73-year-old male in no apparent distress SKIN: Focused skin assessment warm/dry. HEAD: Atraumatic. Normocephalic. EYES: Pupils equal and round. No scleral icterus. No injection or drainage. ENT: No nasal bleeding or discharge. Mucous membranes pink and moist. NECK: Trachea midline. No JVD. CARDIOVASCULAR: Regular rate and rhythm. No murmur appreciated. RESPIRATORY: No accessory muscle use. Clear to auscultation. Breath sounds equal bilaterally. GASTROINTESTINAL: Abdomen soft, non-tender, nondistended. Hepatic and splenic margins not palpable. MUSCULOSKELETAL: No obvious deformities. No clubbing. No cyanosis. No edema. NEUROLOGICAL: Mildly lethargic awake and reactive to loud voice and touch. Motor grossly within normal limits. Slurred speech. PSYCHIATRIC: Appropriate mood and affect; insight and judgment normal. Course Initial Documented Vital Signs Temperature 97.6 F 03/20/18 03:03 Pulse Rate 60 03/20/18 03:03 Respiratory Rate 22 03/20/18 03:03 Blood Pressure 175/78 H 03/20/18 03:03 Pulse Oximetry 98 03/20/18 03:03 Last Documented Vital Signs Temperature 97.7 F 03/20/18 16:00 Pulse Rate 74 03/20/18 20:00 Respiratory Rate 19 03/20/18 20:00 Blood Pressure 153/63 H 03/20/18 20:00 Pulse Oximetry 96 03/20/18 22:11 Medical Decision Making [facility] Narrative Medical decision making narrative: Initial code stroke called, after I spoke with custodial facility, patient was at his normal condition noted at 9 PM. Patient is out of treatment window, CAT scan blood work urine analysis ordered. 0525: Patient most likely does not have stroke. He is positive for benzos and opioids, cannot exclude intoxication due to medications. Also he has elevated ammonia level, possibly encephalopathic due to ammonia level. Lactulose given. Patient will be placed for observation for possible intoxication and altered mental status. Medical Screen Exam Complete: Yes Emergency Medical Condition: Yes Differential Diagnosis Differential Diagnosis: Stroke versus sepsis versus brain bleed Lab Data Result diagrams: 03/20/18 03:00 03/20/18 03:00 Lab Results 03/20/18 03/20/18 03/20/18 Range/Units 03:00 03:00 03:00 WBC 4.2 (4.0-11.0) th/mm3 RBC 4.77 (4.50-5.90) mil/mm3 Hgb 14.1 (13.0-17.0) gm/dL POC Hgb (Calc) 13.9 (13.0-17.0) g/dL Hct 42.3 (39.0-51.0) % POC Hct 41.0 (39-51.0) % MCV 88.7 (80.0-100.0) fL MCH 29.7 (27.0-34.0) pg MCHC 33.5 (32.0-36.0) % RDW 13.7 (11.6-17.2) % Plt Count 134 L (150-450) th/mm3 MPV 9.1 (7.0-11.0) fL Neut % (Auto) 37.4 (16.0-70.0) % Lymph % (Auto) 50.8 H (9.0-44.0) % [place] % (Auto) 8.2 H (0.0-8.0) % Eos % (Auto) 3.0 (0.0-4.0) % Baso % (Auto) 0.6 (0.0-2.0) % Neut # (Auto) 1.6 L (1.8-7.7) th/mm3 Lymph # (Auto) 2.1 (1.0-4.8) th/mm3 [place] # (Auto) 0.3 (0.0-0.9) th/mm3 Eos # (Auto) 0.1 (0.0-0.4) th/mm3 Baso # (Auto) 0.0 (0.0-0.2) th/mm3 WBC Differential . Differential Comment Auto diff final PT 11.1 (9.8-11.6) sec INR 1.1 Ratio APTT 24.9 (24.3-30.1) sec Fibrinogen 261 (227-377) mg/dL POC Sodium 143 (137-144) mmol/L Sodium 142 (136-145) meq/L POC Potassium 5.1 H (3.6-5.0) mmol/L Potassium 5.1 (3.5-5.1) meq/L POC Chloride 105 (102-111) mmol/L Chloride 109 H (98-107) meq/L Carbon Dioxide 27.0 (21.0-32.0) meq/L Anion Gap 6 (5-15) meq/L POC BUN 19 (5-21) mg/dL BUN 16 (7-18) mg/dL Creatinine 1.19 (0.60-1.30) mg/dL POC Creatinine 1.1 (0.6-1.3) mg/dL Estimated GFR 60 L (>89) mL/min POC Glucose 104 (68-110) mg/dL Random Glucose 103 (74-106) mg/dL Calcium 8.7 (8.5-10.1) mg/dL Total Bilirubin (0.2-1.0) mg/dL Direct Bilirubin (0.0-0.2) mg/dL Indirect Bilirubin (0.0-0.8) mg/dL AST (15-37) U/L ALT (12-78) U/L Alkaline Phosphatase (45-117) U/L Ammonia (11-32) mcmol/L Total Creatine Kinase 131 (39-308) U/L Troponin I Less than 0.02 L (0.02-0.05) ng/mL Total Protein (6.4-8.2) g/dL Albumin (3.4-5.0) g/dL Urine Color (Yellw/Straw) Urine Clarity (Clear) Urine pH (5.0-8.5) Ur Specific [place] (1.002-1.035) Urine Protein (Neg-Trace) mg/dL Urine Glucose (UA) (Negative) mg/dL Urine Ketones (Negative) mg/dL Urine Occult Blood (Negative) Urine Nitrate (Negative) Urine Bilirubin (Negative) Urine Urobilinogen (Less than 2) mg/dL Ur Leukocyte Esterase (Negative) Urine RBC (0-3) /hpf Urine WBC (0-5) /hpf Hyaline Casts (0-3) /lpf Micro UA Comment Ur Microscopic Review Urine Culture Comments Urine Opiates Screen (Neg) Ur Barbiturates Screen (Neg) Ur Amphetamines Screen (Neg) U Benzodiazepines Scrn (Neg) Urine Cocaine Screen (Neg) U Cannabinoids Screen (Neg) Blood Type Blood Type Recheck Antibody Screen 03/20/18 03/20/18 03/20/18 Range/Units 03:00 03:00 04:37 WBC (4.0-11.0) th/mm3 RBC (4.50-5.90) mil/mm3 Hgb (13.0-17.0) gm/dL POC Hgb (Calc) (13.0-17.0) g/dL Hct (39.0-51.0) % POC Hct (39-51.0) % MCV (80.0-100.0) fL MCH (27.0-34.0) pg MCHC (32.0-36.0) % RDW (11.6-17.2) % Plt Count (150-450) th/mm3 MPV (7.0-11.0) fL Neut % (Auto) (16.0-70.0) % Lymph % (Auto) (9.0-44.0) % [place] % (Auto) (0.0-8.0) % Eos % (Auto) (0.0-4.0) % Baso % (Auto) (0.0-2.0) % Neut # (Auto) (1.8-7.7) th/mm3 Lymph # (Auto) (1.0-4.8) th/mm3 [place] # (Auto) (0.0-0.9) th/mm3 Eos # (Auto) (0.0-0.4) th/mm3 Baso # (Auto) (0.0-0.2) th/mm3 WBC Differential Differential Comment PT (9.8-11.6) sec INR Ratio APTT (24.3-30.1) sec Fibrinogen (227-377) mg/dL POC Sodium (137-144) mmol/L Sodium (136-145) meq/L POC Potassium (3.6-5.0) mmol/L Potassium (3.5-5.1) meq/L POC Chloride (102-111) mmol/L Chloride (98-107) meq/L Carbon Dioxide (21.0-32.0) meq/L Anion Gap (5-15) meq/L POC BUN (5-21) mg/dL BUN (7-18) mg/dL Creatinine (0.60-1.30) mg/dL POC Creatinine (0.6-1.3) mg/dL Estimated GFR (>89) mL/min POC Glucose 105 (68-110) mg/dL Random Glucose (74-106) mg/dL Calcium (8.5-10.1) mg/dL Total Bilirubin (0.2-1.0) mg/dL Direct Bilirubin (0.0-0.2) mg/dL Indirect Bilirubin (0.0-0.8) mg/dL AST (15-37) U/L ALT (12-78) U/L Alkaline Phosphatase (45-117) U/L Ammonia (11-32) mcmol/L Total Creatine Kinase (39-308) U/L Troponin I (0.02-0.05) ng/mL Total Protein (6.4-8.2) g/dL Albumin (3.4-5.0) g/dL Urine Color (Yellw/Straw) Urine Clarity (Clear) Urine pH (5.0-8.5) Ur Specific [place] (1.002-1.035) Urine Protein (Neg-Trace) mg/dL Urine Glucose (UA) (Negative) mg/dL Urine Ketones (Negative) mg/dL Urine Occult Blood (Negative) Urine Nitrate (Negative) Urine Bilirubin (Negative) Urine Urobilinogen (Less than 2) mg/dL Ur Leukocyte Esterase (Negative) Urine RBC (0-3) /hpf Urine WBC (0-5) /hpf Hyaline Casts (0-3) /lpf Micro UA Comment Ur Microscopic Review Urine Culture Comments Urine Opiates Screen Pos H (Neg) Ur Barbiturates Screen Neg (Neg) Ur Amphetamines Screen Neg (Neg) U Benzodiazepines Scrn Pos H (Neg) Urine Cocaine Screen Neg (Neg) U Cannabinoids Screen Neg (Neg) Blood Type O Positive Blood Type Recheck Required Antibody Screen Negative 03/20/18 03/20/18 03/20/18 Range/Units 04:37 04:45 10:27 WBC (4.0-11.0) th/mm3 RBC (4.50-5.90) mil/mm3 Hgb (13.0-17.0) gm/dL POC Hgb (Calc) (13.0-17.0) g/dL Hct (39.0-51.0) % POC Hct (39-51.0) % MCV (80.0-100.0) fL MCH (27.0-34.0) pg MCHC (32.0-36.0) % RDW (11.6-17.2) % Plt Count (150-450) th/mm3 MPV (7.0-11.0) fL Neut % (Auto) (16.0-70.0) % Lymph % (Auto) (9.0-44.0) % [place] % (Auto) (0.0-8.0) % Eos % (Auto) (0.0-4.0) % Baso % (Auto) (0.0-2.0) % Neut # (Auto) (1.8-7.7) th/mm3 Lymph # (Auto) (1.0-4.8) th/mm3 [place] # (Auto) (0.0-0.9) th/mm3 Eos # (Auto) (0.0-0.4) th/mm3 Baso # (Auto) (0.0-0.2) th/mm3 WBC Differential Differential Comment PT (9.8-11.6) sec INR Ratio APTT (24.3-30.1) sec Fibrinogen (227-377) mg/dL POC Sodium (137-144) mmol/L Sodium (136-145) meq/L POC Potassium (3.6-5.0) mmol/L Potassium (3.5-5.1) meq/L POC Chloride (102-111) mmol/L Chloride (98-107) meq/L Carbon Dioxide (21.0-32.0) meq/L Anion Gap (5-15) meq/L POC BUN (5-21) mg/dL BUN (7-18) mg/dL Creatinine (0.60-1.30) mg/dL POC Creatinine (0.6-1.3) mg/dL Estimated GFR (>89) mL/min POC Glucose (68-110) mg/dL Random Glucose (74-106) mg/dL Calcium (8.5-10.1) mg/dL Total Bilirubin 0.4 (0.2-1.0) mg/dL Direct Bilirubin Less than 0.1 (0.0-0.2) mg/dL Indirect Bilirubin 0.3 (0.0-0.8) mg/dL AST 46 H (15-37) U/L ALT 21 (12-78) U/L Alkaline Phosphatase 108 (45-117) U/L Ammonia 36 H (11-32) mcmol/L Total Creatine Kinase (39-308) U/L Troponin I (0.02-0.05) ng/mL Total Protein 8.7 H (6.4-8.2) g/dL Albumin 3.3 L (3.4-5.0) g/dL Urine Color Yellow (Yellw/Straw) Urine Clarity Clear (Clear) Urine pH 6.0 (5.0-8.5) Ur Specific [place] 1.018 (1.002-1.035) Urine Protein Negative (Neg-Trace) mg/dL Urine Glucose (UA) Negative (Negative) mg/dL Urine Ketones Negative (Negative) mg/dL Urine Occult Blood Negative (Negative) Urine Nitrate Negative (Negative) Urine Bilirubin Negative (Negative) Urine Urobilinogen 2.0 H (Less than 2) mg/dL Ur Leukocyte Esterase Negative (Negative) Urine RBC Less than 1 (0-3) /hpf Urine WBC Less than 1 (0-5) /hpf Hyaline Casts 1 (0-3) /lpf Micro UA Comment Cath-culture not ind Ur Microscopic Review Not Reportable Urine Culture Comments Cath-cult not ind Urine Opiates Screen (Neg) Ur Barbiturates Screen (Neg) Ur Amphetamines Screen (Neg) U Benzodiazepines Scrn (Neg) Urine Cocaine Screen (Neg) U Cannabinoids Screen (Neg) Blood Type Blood Type Recheck Antibody Screen Imaging Data Radiologist's impression: Chest X-Ray 03/20/18 03:03 CONCLUSION: No acute disease Head CT 03/20/18 03:03 CONCLUSION: Stable brain appearance. No acute findings. . Head CTA 03/20/18 03:03 CONCLUSION: No acute [place] of [place] vascular findings Neck CTA 03/20/18 03:03 CONCLUSION: No significant carotid stenosis. Discharge Plan Discharge Disposition Patient Disposition: 30 Still Patient Discharge Condition Condition: Fair Discharge Details Diagnosis: Altered mental status, Adverse reaction to drug, Encephalopathy Physicians Team ED Provider: Rodolfo Levine Primary Care Provider: UNKNOWN, Attending Provider: Amanda Jordan Other Providers: Sarah Bynum Status ED Status: Left Department Discharge Information Discharge Date/Time: 03/20/18 08:20
[2018-03-20 03:31] LABS: Baso % (Auto) 0.6 % (0.0-2.0); Eos # (Auto) 0.1 th/mm3 (0.0-0.4); Hematocrit 42.3 % (39.0-51.0); Hemoglobin 14.1 gm/dL (13.0-17.0); Lymph # (Auto) 2.1 th/mm3 (1.0-4.8); Lymph % (Auto) 50.8 % (9.0-44.0); Mean Corpuscular HGB Conc 33.5 % (32.0-36.0); Mean Corpuscular Hemoglobin 29.7 pg (27.0-34.0); Mean Corpuscular Volume 88.7 fL (80.0-100.0); Mean Platelet Volume 9.1 fL (7.0-11.0); Mono # (Auto) 0.3 th/mm3 (0.0-0.9); Mono % (Auto) 8.2 % (0.0-8.0); Neut # (Auto) 1.6 th/mm3 (1.8-7.7); Neut % (Auto) 37.4 % (16.0-70.0); Platelet Count 134 th/mm3 (150-450); Red Blood Count 4.77 mil/mm3 (4.50-5.90); Red Cell Distribution Width 13.7 % (11.6-17.2); White Blood Count 4.2 th/mm3 (4.0-11.0)
[2018-03-20 03:40] LABS: Activated Partial Thrombo Time 24.9 sec (24.3-30.1); INR 1.1 Ratio; Prothrombin Time 11.1 sec (9.8-11.6)
--- NOTE | 2018-03-20 03:50 | CT ---
EXAM DATE: 03/20/2018 3:11 AM EDT AGE/SEX: 73 years / Male INDICATIONS: Altered mental status. CLINICAL DATA: This is the patient's initial encounter. Patient reports that signs and symptoms have been present for 1 day and indicates a pain score of Nonresponsive. MEDICAL/SURGICAL HISTORY: Non-responsive. Non-responsive. RADIATION DOSE: 56.35 CTDI (mGy) COMPARISON: [facility] [place], CT BRAIN W/O CONTRAST, 10/21/2017. . TECHNIQUE: CT of the head without contrast. Using automated exposure control and adjustment of the mA and/or kV according to patient size, radiation dose was kept as low as reasonably achievable to ob tain optimal diagnostic quality images. DICOM format image data is available electronically for revi ew and comparison. FINDINGS: Stable right basal ganglia lacunar infarct which appears old. Patchy moderate periventricular white m atter hypodensity, also unchanged. Ventricles are stable and symmetric. No evidence of intracranial m ass or hemorrhage. Nothing to suggest acute infarction. Extracranial structures are benign and intact . CONCLUSION: Stable brain appearance. No acute findings. . Electronically signed by: Charlie Frederick MD 03/20/2018 3:49 AM EDT
--- NOTE | 2018-03-20 03:53 | CT ---
EXAM DATE: 03/20/2018 3:11 AM EDT AGE/SEX: 73 years / Male INDICATIONS: Altered mental status; rule out infarct. CLINICAL DATA: This is the patient's initial encounter. Patient reports that signs and symptoms have been present for 1 day and indicates a pain score of Nonresponsive. MEDICAL/SURGICAL HISTORY: Non-responsive. Non-responsive. RADIATION DOSE: 9.42 CTDI (mGy) ; Combined studies COMPARISON: [facility] – [place], CT HEAD W/O CONTRAST, 03/20/2018. . TECHNIQUE: Volumetric scanning was performed using a multi-row detector CT scanner during bolus infu edie of 100 ml Visipaque 320 (iodixanol) nonionic water-soluble contrast as a cumulative dose for mu ltiple exams. The data was post processed with a variety of visualization algorithms including full volume maximum intensity projection, multi-planar sliding thin slab reformation, curved planar refor mation, and surface rendering techniques. Using automated exposure control and adjustment of the mA and/or kV according to patient size, radiation dose was kept as low as reasonably achievable to obtai n optimal diagnostic quality images. DICOM format image data is available electronically for review and comparison. FINDINGS: There is excellent visualization of the major intracranial arteries out to the second-order branch ve ssels. There is no evidence for aneurysm, vessel truncation or stenosis, and no evidence for vascula r malformation. CONCLUSION: No acute [place] of [place] vascular findings Electronically signed by: Charlie Frederick MD 03/20/2018 3:51 AM EDT
--- NOTE | 2018-03-20 03:57 | XR ---
EXAM DATE: 03/20/2018 3:03 AM EDT AGE/SEX: 73 years / Male INDICATIONS: Altered mental status. CLINICAL DATA: This is the patient's initial encounter. Patient reports that signs and symptoms have been present for 1 day and indicates a pain score of Nonresponsive. MEDICAL/SURGICAL HISTORY: Non-responsive. Non-responsive. COMPARISON: [facility] [place], CHEST SINGLE AP, 10/21/2017. . FINDINGS: A single AP view of the chest demonstrates the lungs to be symmetrically aerated without evidence of mass, infiltrate or effusion. The cardiomediastinal contours are unremarkable. Osseous structures a re intact. CONCLUSION: No acute disease Electronically signed by: Charlie Frederick MD 03/20/2018 3:56 AM EDT
[2018-03-20 04:12] LABS: Anion Gap 6 meq/L (5-15); Blood Urea Nitrogen 16 mg/dL (7-18); Calcium 8.7 mg/dL (8.5-10.1); Chloride 109 meq/L (98-107); Creatine Kinase 131 U/L (39-308); Glomerular Filtration Rate 60 mL/min (>89); Glucose,Random 103 mg/dL (74-106); Sodium 142 meq/L (136-145)
[2018-03-20 04:14] LABS: Potassium 5.1 meq/L (3.5-5.1)
--- NOTE | 2018-03-20 04:21 | CT ---
EXAM DATE: 03/20/2018 3:11 AM EDT AGE/SEX: 73 years / Male INDICATIONS: Altered mental status. CLINICAL DATA: This is the patient's initial encounter. Patient reports that signs and symptoms have been present for 1 day and indicates a pain score of Nonresponsive. MEDICAL/SURGICAL HISTORY: Non-responsive. Non-responsive. RADIATION DOSE: 9.42 CTDI (mGy) ; Combined studies COMPARISON: . TECHNIQUE: Volumetric scanning was performed using a multirow detector CT scanner during bolus infus ion of 100 ml Visipaque 320 (iodixanol) nonionic water-soluble contrast as a cumulative dose for mul tiple exams. The data was postprocessed with a variety of visualization algorithms including full-v olume maximum intensity projection, multiplanar sliding thin-slab reformation, curved-planar reformat ion, and surface-rendering techniques. Using automated exposure control and adjustment of the mA and /or kV according to patient size, radiation dose was kept as low as reasonably achievable to obtain o ptimal diagnostic quality images. DICOM format image data is available electronically for review and comparison. Percent stenosis is calculated using the diameter of the stenotic region over the diameter of the nor mal distal internal carotid artery. FINDINGS: Aortic Arch: There is a three-vessel origin of the great vessels from the aorta. No evidence of ost ial narrowing Right Carotid: Slight eccentric plaque involving the bulb and proximal right ICA without significant stenotic narrowing. Left Carotid: The common carotid artery is intact. The carotid bulb has a normal configuration with out ulceration or narrowing. The internal carotid artery lumen is smooth without stenosis. The exte rnal carotid artery is intact. Vertebrals: The vertebral arteries have a symmetric diameter. No stenotic lesions are seen. CONCLUSION: No significant carotid stenosis. Electronically signed by: Charlie Frederick MD 03/20/2018 4:20 AM EDT
[2018-03-20 04:47] LABS: Bilirubin,Urine Negative (Negative); Clarity,Urine Clear (Clear); Color,Urine Yellow (Yellw/Straw); Glucose,Urine (UA) Negative (Negative); Hyaline Casts,Urine 1 /lpf (0-3); Leukocyte Esterase,Urine Negative (Negative); Nitrite,Urine Negative (Negative); Specific Gravity,Urine 1.018 (1.002-1.035)
[2018-03-20 04:52] LABS: Amphetamine Screen,Urine Neg (Neg); Barbiturate Screen,Urine Neg (Neg); Cannabinoid Screen,Urine Neg (Neg); Cocaine Screen,Urine Neg (Neg)
[2018-03-20 04:55] LABS: Opiate Screen,Urine Pos (Neg)
[2018-03-20] MEDS ORDERED: Bisacodyl 10 MG Supp RECTAL PRN (05:21)
[2018-03-20] MEDS ORDERED: Sodium Chloride 0.9% 2 ML Flush PRN IV.FLUSH (05:31)
[2018-03-20] MEDS: Sod Chloride 0.9% Inj 1,000 ML IV.CONT SCH ×2 (06:40→19:31)
--- NOTE | 2018-03-20 10:16 | P.HPIM ---
History of Present Illness Primary Care Physician: UNKNOWN Chief Complaint: altered mental status History of Present Illness: patient is a 73 y/o male with history of hepatitis C who was brought to ER with altered mental status. patient is not a good historian due to his altered mentation and most of the information was obtained from the ER documents. reportedly he was found lethargic with generalized weakness noted suddenly by his roommate at 1 AM when patient tried to get up his bed and accidentally fell. Patient as per roommate became lethargic very weak, with slurred speech. at the time of my evaluation he was in no acute distress. opened the eyes briefly to calling his name. Review of Systems unobtainable due to mental condition PMFSH - History History Provided By: Breaker Oiler / EMT - Medical History Medical History: Medical History (Last Updated 03/20/18 @ 10:13 by Amanda Jordan MD) Coronary artery disease Depression Hepatitis C History not obtained - Tobacco History Smoking Status: Cognitive impairment - Alcohol History How Often Do You Have a Drink Containing Alcohol: Unable to Obtain - Substance Use History Substance History: Unable to Obtain - Travel History Recent Travel in the [place] Within the Last 8 Weeks: No Recent Travel Out of the Country Within the Last 8 Weeks: No - Immunization History Tetanus Immunization: Unable to Assess Medications and Allergies Active Medications: Active Medications Al Hydroxide/Mg Hydroxide (Milk Of Magnesia Liq) 30 ml PO Q12H PRN PRN Reason: Mild Constipation Bisacodyl (Dulcolax Supp) 10 mg RECTAL DAILY PRN PRN Reason: SEVERE CONSITIPATION Sodium Chloride (Ns Inj) 1,000 mls @ 70 mls/hr IV.CONT .[id number] [facility] Last Admin: 03/20/18 06:40 Dose: 70 mls/hr Lactulose (Lactulose Liq) 30 ml PO DAILY PRN PRN Reason: SEVERE CONSITIPATION Senna/Docusate Sodium (Stacie-Colace) 1 tab PO BID COLT Sennosides (Senokot) 17.2 mg PO Q12H PRN PRN Reason: Moderate Constipation Sodium Chloride (Ns Flush) 2 ml IV.FLUSH BID COLT Sodium Chloride (Ns Flush) 2 ml IV.FLUSH PRN PRN PRN Reason: FLUSH AFTER USING IV ACCESS Allergies Allergy/AdvReac Type Severity Reaction Status Date / Time penicillin G Allergy Unknown Unverified 01/27/17 16:48 Home Medications Medication Instructions Recorded Confirmed Type diazepam 10 mg PO BID PRN 03/20/18 03/20/18 History duloxetine 60 mg PO DAILY 03/20/18 03/20/18 History gabapentin 300 mg PO TID 03/20/18 03/20/18 History hydroxyzine HCl 25 mg PO QID PRN 03/20/18 03/20/18 History metoprolol tartrate 50 mg PO BID 03/20/18 03/20/18 History morphine 03/20/18 History omeprazole 40 mg PO DAILY 03/20/18 03/20/18 History ranitidine HCl [Zantac] 150 mg PO BID 03/20/18 03/20/18 History tizanidine [Zanaflex] 2 mg PO TID PRN 03/20/18 03/20/18 History Exam Vital signs: Vital Signs 03/20/18 03:03 03/20/18 03:49 03/20/18 04:00 Temperature 97.6 F Pulse Rate 60 52 L Respiratory Rate 22 17 Blood Pressure 175/78 H 173/79 H Pulse Oximetry 98 98 95 03/20/18 06:00 03/20/18 07:03 03/20/18 08:00 Temperature 97.4 F L Pulse Rate 50 L 51 L 54 L Respiratory Rate 18 14 12 Blood Pressure 147/65 H 134/63 157/74 H Pulse Oximetry 95 91 L 96 - Constitutional no acute distress - Routine HEENT Exam Head: Present: atraumatic - Routine Neck Exam Present: supple - Routine Respiratory Exam Present: CTA bilaterally - Routine Cardiovascular Exam Present: RRR - Routine Abdominal Exam Present: soft - Routine Extremities Exam Comments: no pedal edema. - Routine Neurological Exam lethargic- briefly opens the eyes to calling his name. Results - Labs CBC & Chem 7: 03/20/18 03:00 03/20/18 03:00 Labs: Short CBC 03/20/18 Range/Units 03:00 WBC 4.2 (4.0-11.0) th/mm3 Hgb 14.1 (13.0-17.0) gm/dL Hct 42.3 (39.0-51.0) % Plt Count 134 L (150-450) th/mm3 BMP 03/20/18 03:00 Sodium 142 Potassium 5.1 Chloride 109 H Carbon Dioxide 27.0 BUN 16 Creatinine 1.19 Calcium 8.7 Cardiac Enzymes 03/20/18 Range/Units 03:00 Total Creatine Kinase 131 (39-308) U/L Troponin I Less than 0.02 L (0.02-0.05) ng/mL Urine 03/20/18 Range/Units 04:37 Urine Color Yellow (Yellw/Straw) Urine Clarity Clear (Clear) Urine pH 6.0 (5.0-8.5) Ur Specific [place] 1.018 (1.002-1.035) Urine Protein Negative (Neg-Trace) mg/dL Urine Glucose (UA) Negative (Negative) mg/dL - Imaging Impressions Chest X-Ray 03/20/18 03:03 CONCLUSION: No acute disease Head CT 03/20/18 03:03 CONCLUSION: Stable brain appearance. No acute findings. . Head CTA 03/20/18 03:03 CONCLUSION: No acute [place] vascular findings Neck CTA 03/20/18 03:03 CONCLUSION: No significant carotid stenosis. Caprini VTE Risk Assessment Caprini VTE Risk Assessment: Moderate/High Risk (score >= 2) Caprini Risk Assessment Model: Point Value = 1 Point Value = 2 Point Value = 3 Point Value = 5 Age 41-60 Minor surgery BMI > 25 kg/m2 Swollen legs Varicose veins or History of unexplained or recurrent spontaneous Oral contraceptives or hormone replacement Sepsis (< 1 month) Serious lung disease, including pneumonia (< 1 month) Abnormal pulmonary function Acute myocardial infarction Congestive heart failure (< 1 month) History of inflammatory bowel disease Medical patient at bed rest Age 61-74 Arthroscopic surgery Major open surgery (> 45 min) Laparoscopic surgery (> 45 min) Malignancy Confined to bed (> 72 hours) Immobilizing plaster cast Central venous access Age >= 75 History of VTE Family history of VTE Factor V Leiden Prothrombin [id number] Lupus anticoagulant Anticardiolipin antibodies Elevated serum homocysteine Heparin-induced thrombocytopenia Other congenital or acquired thrombophilia Stroke (< 1 month) Elective arthroplasty Hip, pelvis, or leg fracture Acute spinal cord injury (< 1 month) Prophylaxis Regimen: Total Risk Factor Score Risk Level Prophylaxis Regimen 0-1 Low Early ambulation 2 Moderate Order ONE of the following: *Sequential Compression Device (SCD) *Heparin 5000 units SQ BID 3-4 Higher Order ONE of the following medications: *Heparin 5000 units SQ TID *Enoxaparin/Lovenox 40 mg SQ daily (WT < 150 kg, CrCl > 30 mL/min) *Enoxaparin/Lovenox 30 mg SQ daily (WT < 150 kg, CrCl > 10-29 mL/min) *Enoxaparin/Lovenox 30 mg SQ BID (WT < 150 kg, CrCl > 30 mL/min) AND/OR *Sequential Compression Device (SCD) 5 or more Highest Order ONE of the following medications: *Heparin 5000 units SQ TID (Preferred with Epidurals) *Enoxaparin/Lovenox 40 mg SQ daily (WT < 150 kg, CrCl > 30 mL/min) *Enoxaparin/Lovenox 30 mg SQ daily (WT < 150 kg, CrCl > 10-29 mL/min) *Enoxaparin/Lovenox 30 mg SQ BID (WT < 150 kg, CrCl > 30 mL/min) AND *Sequential Compression Device (SCD) Assessment and Plan - Plan A/P - acute encephalopathy- suspect due to polypharmacy; patient is on opiate/benzo. urine toxicology positive for opioid and benzo/ CT head with no acute abnormality NPO for now - continue with neuro-checks- continue with IV fluid- neurology consulted- -history of hepatitis C/mildly elevated ammonia level;received Lactulose- will check the LFT's -DVT prophylaxis with Subq lovenox Discussed Condition With: the RN.
[2018-03-20] MEDS: Senna/Docusate Sodium 8.6/50 MG Tablet PO SCH ×2 (10:18→22:00)
[2018-03-20] MEDS: Sodium Chloride 0.9% 2 ML Flush BID IV.FLUSH SCH ×2 (10:19→22:30)
[2018-03-20 10:42] LABS: Alkaline Phosphatase 108 U/L (45-117); Total Protein 8.7 g/dL (6.4-8.2)
--- NOTE | 2018-03-20 10:42 | MB ---
cc: Sarah Bynum MD DATE: 03/20/2018 REASON FOR CONSULTATION: Altered mental status. HISTORY OF PRESENT ILLNESS: A 73-year-old male was brought in to the emergency room earlier this morning where he was found by his roommate at 1 a.m. When he tried to get to bed, he accidentally fell. He has a history of hepatitis C, as per review of records. Roommate noticed that the patient became lethargic and weak with some slurred speech. It was reported that 3 hours before this incident the patient was fine. The patient is a poor historian during the encounter, however, responds to verbal commands and is sleepy. A stroke code was called and Dr. Loja from neurology was consulted. The patient was deemed not to be a stroke patient and not a candidate for TPA. Admitted and the emergency room physician consulted neurology for further workup. During the encounter, the patient is sleepy, however, easily arousable and follows commands. An urgent head CT scan in the emergency room did not show acute changes. Vital signs revealed bradycardia and mild increase in the blood pressure. REVIEW OF SYSTEMS: A 12-point review of systems is negative other than what is mentioned in the HPI. PAST MEDICAL HISTORY: Unable to obtain due to patient's condition. PAST SURGICAL HISTORY: Unable to obtain due to patient's condition is. However, review of medical records revealed coronary artery disease, depression, and hepatitis C. SOCIAL HISTORY: Lives with a roommate in a long term. The rest of the social history cannot be obtained due to the patient's condition. PHYSICAL EXAMINATION: GENERAL: The patient is well nourished, well built, looks dehydrated. Mild pallor. Not in acute distress. Normal work of breathing. HEENT: Atraumatic, normocephalic, intact hearing and intact vision. No visible lesions on the ear or nose. NECK: Trachea in the midline. No signs of meningeal irritation. CARDIOVASCULAR: Regular rate and rhythm. No murmur. RESPIRATORY: Clear to auscultation. No added sounds. GASTROINTESTINAL: Soft abdomen. No tenderness, no distention. MUSCULOSKELETAL: No deformities. No clubbing, no cyanosis, no edema. NEUROLOGIC: Awake, alert, oriented to time, person and place ([place] 2018, sleepy during the encounter; however, easily arousable and briskly arousable and moves extremities equally). Squeeze my hands, both sides equal. Reflexes are 2+ bilaterally symmetrical. Plantars are bilateral downgoing. Intact sensation throughout to light touch and pressure. CRANIAL NERVE EXAMINATION: Pupils are equal, reacting to light. No gaze deviation. No facial asymmetry is noted, intact hearing. Dry tongue and lips. PSYCHIATRIC: Unable to assess due to the patient's condition. LABORATORY DATA: Revealed a CBC with low platelet count, thrombocytopenia at 134, normal hemoglobin at 14.1. Normal coagulation pattern, elevated potassium at 5.1, chloride at 101, and an elevated ammonia at 36. Toxicology screening was positive for opiates and benzodiazepines. Imaging Results: Head CT scan was reported with an impression of stable right basal ganglia lacunar infarct/old. Patchy moderate periventricular white matter hypodensity, unchanged. Stable ventricles and symmetric. No intracranial mass or hemorrhage. Nothing to suggest an acute infarction. Head CTA was reported with the conclusion of no acute [place] vascular findings. Neck CTA was reported with no significant carotid stenosis. IMPRESSION AND PLAN: 1. Encephalopathy. Likely metabolic encephalopathy secondary to electrolyte derangement, positive benzodiazepines, hyperammonemia. 2. Hyperammonemia. 3. Coronary artery disease. 4. History of hepatitis C. 5. Stroke code. Assessed and was not deemed a candidate for IV TPA. - Neurologic checks 4 hourly. - Limit use of benzodiazepines and sedatives and opiates. - Thrombosis prophylaxis. - Gastrointestinal prophylaxis. - Will continue monitoring. Thank you for the opportunity to be able to participate in the care of your patient. MD DHRUV Hernandez/azucena , 09:40 AM , 09:53 AM TOM
[2018-03-20 10:59] LABS: Alanine Aminotransferase 21 U/L (12-78); Albumin 3.3 g/dL (3.4-5.0); Aspartate Aminotransferase 46 U/L (15-37)
--- NOTE | 2018-03-20 13:08 | ECG ---
Date Performed: 03/20/2018 Time Performed: 03:01:12 PTAGE: 73 years EKG: SINUS BRADYCARDIA BORDERLINE ECG PREVIOUS TRACING : 10/21/2017 22.23 DOCTOR: Corey Coyle Interpretating Date/Time 03/20/2018 13:06:58
[2018-03-20] MEDS: Enoxaparin Inj 40 MG/0.4 ML Syringe SQ SCH (19:31)
[2018-03-21] MEDS: Sod Chloride 0.9% Inj 1,000 ML IV.CONT SCH ×2 (05:16→17:53)
[2018-03-21] MEDS: Sodium Chloride 0.9% 2 ML Flush BID IV.FLUSH SCH ×2 (09:52→20:34)
[2018-03-21] MEDS: Senna/Docusate Sodium 8.6/50 MG Tablet PO SCH ×2 (09:52→20:36)
[2018-03-21 10:12] LABS: Baso % (Auto) 0.3 % (0.0-2.0); Eos # (Auto) 0.1 th/mm3 (0.0-0.4); Eos % (Auto) 1.8 % (0.0-4.0); Hematocrit 40.3 % (39.0-51.0); Hemoglobin 13.6 gm/dL (13.0-17.0); Lymph # (Auto) 1.8 th/mm3 (1.0-4.8); Lymph % (Auto) 40.9 % (9.0-44.0); Mean Corpuscular HGB Conc 33.8 % (32.0-36.0); Mean Corpuscular Hemoglobin 29.5 pg (27.0-34.0); Mean Corpuscular Volume 87.2 fL (80.0-100.0); Mean Platelet Volume 8.4 fL (7.0-11.0); Mono # (Auto) 0.3 th/mm3 (0.0-0.9); Mono % (Auto) 6.3 % (0.0-8.0); Neut # (Auto) 2.2 th/mm3 (1.8-7.7); Neut % (Auto) 50.7 % (16.0-70.0); Platelet Count 122 th/mm3 (150-450); Red Blood Count 4.62 mil/mm3 (4.50-5.90); Red Cell Distribution Width 13.5 % (11.6-17.2); White Blood Count 4.3 th/mm3 (4.0-11.0)
--- NOTE | 2018-03-21 10:13 | P.PNIM ---
Subjective Interval history: f/u; acute encephalopathy in no acute distress. looks better today. is more alert although still mildly lethargic. d/w the RN. Physical Exam Vital signs: Vital Signs 03/20/18 12:00 03/20/18 16:00 03/20/18 20:00 Temperature 97.6 F 97.7 F Pulse Rate 51 L 55 L 74 Respiratory Rate 14 16 19 Blood Pressure 139/68 181/81 H 153/63 H Pulse Oximetry 97 94 L 96 03/20/18 22:11 03/21/18 03:50 03/21/18 08:00 Temperature 98.0 F Pulse Rate 68 72 Respiratory Rate 19 16 Blood Pressure 165/79 H 185/77 H Pulse Oximetry 96 97 96 Intake & Output 03/20/18 03/21/18 03/21/18 18:59 06:59 18:59 Intake Total 0 / 0 1000 / 1000 Output Total 320 / 320 Balance 0 / 0 680 / 680 Intake: IV 1000 / 1000 NS Inj 1,000 ML @ 100 mls/hr IV 1000 / 1000 .CONT .Q10H COLT Rx#:[id number] Oral 0 / 0 0 / 0 Oral Supplement 0 / 0 Output: Urine 320 / 320 Other: # Voids 2 3 # Incontinent Voids 2 Date of Last Bowel Movement 03/20/18 # Bowel Movements 2 - Constitutional no acute distress - Routine Respiratory Exam Present: CTA bilaterally - Routine Cardiovascular Exam Present: RRR - Routine Abdominal Exam Present: soft - Routine Extremities Exam Comments: no pedal edema. - Routine Neurological Exam Present: alert (more alert today- however still mildly lethargic.) - Urinary Catheter Management Straight Cath placed during this visit: no Reason for continuing: Not indwelling catheter Results - Labs CBC & Chem 7: 03/20/18 03:00 03/20/18 03:00 Laboratory Results - last 24 hr 03/20/18 03/21/18 10:27 09:38 Total Bilirubin 0.4 Direct Bilirubin Less than 0.1 Indirect Bilirubin 0.3 AST 46 H ALT 21 Alkaline Phosphatase 108 Ammonia 37 H Total Protein 8.7 H Albumin 3.3 L Assessment and Plan - Plan A/P - acute encephalopathy- suspect due to polypharmacy; patient is on opiate/benzo. - now is improving and patient is more alert today. urine toxicology positive for opioid and benzo/ CT head with no acute abnormality continue with neuro-checks- continue with IV fluid- neurology consult appreciated. PT/ST consulted; patient will be started on diet per ST recommendations. -history of hepatitis C/mildly elevated ammonia level;received Lactulose- CMP today pending. -DVT prophylaxis with Subq lovenox Discharge Planning: dc back to SNF within the next 24 hrs if continues to improve.
[2018-03-21] MEDS: Metoprolol Tartrate 50 MG Tablet PO SCH ×2 (11:13→20:34)
[2018-03-21 11:19] LABS: Alanine Aminotransferase 21 U/L (12-78); Alkaline Phosphatase 74 U/L (45-117); Anion Gap 7 meq/L (5-15); Aspartate Aminotransferase 61 U/L (15-37); Blood Urea Nitrogen 13 mg/dL (7-18); Calcium 8.5 mg/dL (8.5-10.1); Carbon Dioxide 24.7 meq/L (21.0-32.0); Chloride 110 meq/L (98-107); Glomerular Filtration Rate Greater Than 89 mL/min (>89); Glucose,Random 89 mg/dL (74-106); Sodium 142 meq/L (136-145); Total Protein 8.2 g/dL (6.4-8.2)
[2018-03-21 11:20] LABS: Potassium 4.2 meq/L (3.5-5.1)
[2018-03-21] MEDS: Enoxaparin Inj 40 MG/0.4 ML Syringe SQ SCH (14:11)
[2018-03-22] MEDS: Sod Chloride 0.9% Inj 1,000 ML IV.CONT SCH ×2 (03:41→09:32)
[2018-03-22] MEDS: Metoprolol Tartrate 50 MG Tablet PO SCH ×2 (08:00→21:59)
[2018-03-22] MEDS: Senna/Docusate Sodium 8.6/50 MG Tablet PO SCH ×2 (08:00→21:59)
[2018-03-22] MEDS: Enoxaparin Inj 40 MG/0.4 ML Syringe SQ SCH (08:01)
--- NOTE | 2018-03-22 08:38 | P.PNIM ---
Subjective Interval history: f/u; acute encephalopathy in no acute distress. awake, alert- oriented to person and time but not to place. BP trend noted. no fever. Physical Exam Vital signs: Vital Signs 03/21/18 12:00 03/21/18 16:00 03/21/18 19:17 Temperature 97.7 F 97.7 F 97 F L Pulse Rate 73 68 67 Respiratory Rate 16 14 20 Blood Pressure 183/96 H 139/60 212/90 H Pulse Oximetry 95 95 94 L 03/21/18 20:00 03/22/18 03:18 03/22/18 08:16 Temperature 97.3 F L 97.9 F 97.8 F Pulse Rate 58 L 61 62 Respiratory Rate 18 19 18 Blood Pressure 160/72 H 179/78 H 197/93 H Pulse Oximetry 92 L 94 L 95 Intake & Output 03/21/18 03/22/18 03/22/18 18:59 06:59 18:59 Intake Total 600 / 600 Output Total 3 / 3 Balance 597 / 597 Intake: Oral 600 / 600 Oral Supplement 0 / 0 Output: Stool 3 / 3 Other: # Voids 4 # Incontinent Voids 5 Date of Last Bowel Movement 03/21/18 03/21/18 # Bowel Movements 3 # Incontinent Bowel Movements 3 - Constitutional no acute distress - Routine Respiratory Exam Present: CTA bilaterally - Routine Cardiovascular Exam Present: RRR - Routine Abdominal Exam Present: soft - Routine Extremities Exam Comments: no pedal edema. - Routine Neurological Exam Present: alert (oriented to person and time but not to place.) - Urinary Catheter Management Straight Cath placed during this visit: no Reason for continuing: Not indwelling catheter Results - Labs CBC & Chem 7: 03/21/18 09:38 03/21/18 09:38 Laboratory Results - last 24 hr 03/21/18 03/21/18 03/21/18 09:38 09:38 09:38 WBC 4.3 RBC 4.62 Hgb 13.6 Hct 40.3 MCV 87.2 MCH 29.5 MCHC 33.8 RDW 13.5 Plt Count 122 L MPV 8.4 Neut % (Auto) 50.7 Lymph % (Auto) 40.9 [place] % (Auto) 6.3 Eos % (Auto) 1.8 Baso % (Auto) 0.3 Neut # (Auto) 2.2 Lymph # (Auto) 1.8 [place] # (Auto) 0.3 Eos # (Auto) 0.1 Baso # (Auto) 0.0 WBC Differential . Differential Comment Auto diff final Sodium 142 Potassium 4.2 D Chloride 110 H Carbon Dioxide 24.7 Anion Gap 7 BUN 13 Creatinine 0.83 Estimated GFR Greater than 89 POC Glucose Random Glucose 89 Calcium 8.5 Total Bilirubin 0.6 AST 61 H ALT 21 Alkaline Phosphatase 74 Ammonia 37 H Total Protein 8.2 Albumin 3.0 L 03/21/18 11:07 WBC RBC Hgb Hct MCV MCH MCHC RDW Plt Count MPV Neut % (Auto) Lymph % (Auto) [place] % (Auto) Eos % (Auto) Baso % (Auto) Neut # (Auto) Lymph # (Auto) [place] # (Auto) Eos # (Auto) Baso # (Auto) WBC Differential Differential Comment Sodium Potassium Chloride Carbon Dioxide Anion Gap BUN Creatinine Estimated GFR POC Glucose 96 Random Glucose Calcium Total Bilirubin AST ALT Alkaline Phosphatase Ammonia Total Protein Albumin Assessment and Plan - Plan A/P - acute encephalopathy- suspect due to polypharmacy; patient is on opiate/benzo. - improving slowly. urine toxicology positive for opioid and benzo/ CT head with no acute abnormality continue with neuro-checks- continue with IV fluid- neurology consult appreciated. PT/ST consulted. -hypertension; not optimally controlled; continue Metoprolol- will add Amlodipine- vasotec prn. -history of hepatitis C/mildly elevated ammonia level;on Lactulose- -DVT prophylaxis with Subq lovenox Discharge Planning: dc back to SNF within the next 24 hrs if continues to improve- pending BP trend.
[2018-03-22] MEDS: amLODIPine 5 MG Tablet PO SCH (09:32)
[2018-03-22] MEDS: Sodium Chloride 0.9% 2 ML Flush BID IV.FLUSH SCH ×2 (09:33→21:59)
--- NOTE | 2018-03-23 08:00 | P.PNIM ---
Subjective Interval history: f/u; encephalopathy in no acute distress. looks comfortable. d/w the RN and no acute issues over night. Physical Exam Vital signs: Vital Signs 03/22/18 08:16 03/22/18 11:37 03/22/18 16:00 Temperature 97.8 F 97.6 F 97.7 F Pulse Rate 62 57 L 61 Respiratory Rate 18 18 16 Blood Pressure 197/93 H 172/79 H 165/80 H Pulse Oximetry 95 97 93 L 03/22/18 20:00 03/22/18 23:52 03/23/18 03:34 Temperature 98.1 F 97.8 F 98.1 F Pulse Rate 64 57 L 59 L Respiratory Rate 17 17 16 Blood Pressure 142/93 H 156/70 H 148/70 H Pulse Oximetry 97 95 97 Intake & Output 03/22/18 03/23/18 03/23/18 18:59 06:59 18:59 Intake Total 1000 / 1000 480 / 480 Balance 1000 / 1000 480 / 480 Intake: IV 1000 / 1000 NS Inj 1,000 ML @ 50 mls/hr IV. 1000 / 1000 CONT .Q20H COLT Rx#:[id number] Oral 480 / 480 Other: # Voids 2 - Constitutional no acute distress - Routine Respiratory Exam Present: CTA bilaterally - Routine Cardiovascular Exam Present: RRR - Routine Abdominal Exam Present: soft - Routine Extremities Exam Comments: mild bilateral pedal edema. - Routine Neurological Exam Present: alert - Urinary Catheter Management Straight Cath placed during this visit: no Reason for continuing: Not indwelling catheter Results - Labs CBC & Chem 7: 03/21/18 09:38 03/21/18 09:38 Laboratory Results - last 24 hr 03/22/18 03/22/18 03/22/18 09:35 09:57 16:27 POC Glucose 94 107 Ammonia 33 H Assessment and Plan - Plan A/P - acute encephalopathy- suspect due to polypharmacy; patient is on opiate/benzo. - improved. urine toxicology positive for opioid and benzo/ CT head with no acute abnormality neurology consult appreciated. PT/ST consulted. -hypertension; overall better controlled; continue Metoprolol and Amlodipine- -history of hepatitis C/mildly elevated ammonia level;on Lactulose- -DVT prophylaxis with Subq lovenox Discharge Planning: [facility] will have [facility]HC. see med list. f/u; pcp. d/w the patient,RN and case management. E-Debra was consulted.
[2018-03-23] MEDS: Sod Chloride 0.9% Inj 1,000 ML IV.CONT SCH (08:12)
--- NOTE | 2018-03-23 08:12 | P.DCO ---
- Diagnosis (1) Altered mental status Status: Acute - Physical Therapy Order: Evaluate and treat - Home Health Nursing Order: Medical education, Signs/symptoms of disease process, Medication education-adverse effect, Nursing assessment with vital signs - Case Management Consult Yes - Certification I have seen patient Juma Vee III on 03/23/18. My clinical findings support the need for the requested home health care services because: Limited mobility due to disease progression I certify that my clinical findings support that this patient is homebound because: Unsteady gait/balance
--- NOTE | 2018-03-23 08:12 | P.DS ---
Date of admission: 03/20/18 05:30 Primary care physician: UNKNOWN Brief History from admission: patient is a 73 y/o male with history of hepatitis C who was brought to ER with altered mental status. patient is not a good historian due to his altered mentation and most of the information was obtained from the ER documents. reportedly he was found lethargic with generalized weakness noted suddenly by his roommate at 1 AM when patient tried to get up his bed and accidentally fell. Patient as per roommate became lethargic very weak, with slurred speech. at the time of my evaluation he was in no acute distress. opened the eyes briefly to calling his name. DS: Medications - Discharge Medications Prescriptions: amlodipine [Norvasc] 5 mg PO DAILY 30 Days #30 tab hydrocodone-acetaminophen [[place]] 1 tab PO Q6H PRN #8 tab PRN Reason: acute pain >4 DS: Summary Hospital Course: patient was admitted with acute encephalopathy- suspected due to polypharmacy due to opiates and Benzodiazepines. CT head with no acute abnormality. his ammonia was mildly elevated for which he was started on lactulose and his ammonia level trended down. his mental status overall improved. his Morphine and Valium were discontinued. he was seen by Neurology.his BP was not optimally controlled for which Amlodipine was added to his regimen. he will be have [facility] upon discharge. - Time Spent with Patient Total time spent providing and/or coordinating discharge services: Less than 30 minutes - Quality: VTE Deep Vein Thrombosis/Pulmonary Embolism Present on Admission: No Exam Vital signs: Vital Signs 03/22/18 08:16 03/22/18 11:37 03/22/18 16:00 Temperature 97.8 F 97.6 F 97.7 F Pulse Rate 62 57 L 61 Respiratory Rate 18 18 16 Blood Pressure 197/93 H 172/79 H 165/80 H Pulse Oximetry 95 97 93 L 03/22/18 20:00 03/22/18 23:52 03/23/18 03:34 Temperature 98.1 F 97.8 F 98.1 F Pulse Rate 64 57 L 59 L Respiratory Rate 17 17 16 Blood Pressure 142/93 H 156/70 H 148/70 H Pulse Oximetry 97 95 97 Intake & Output 03/22/18 03/23/18 03/23/18 18:59 06:59 18:59 Intake Total 1000 / 1000 480 / 480 Balance 1000 / 1000 480 / 480 Intake: IV 1000 / 1000 NS Inj 1,000 ML @ 50 mls/hr IV. 1000 / 1000 CONT .Q20H COLT Rx#:[id number] Oral 480 / 480 Other: # Voids 2 - Constitutional no acute distress - Routine Respiratory Exam Present: CTA bilaterally - Routine Cardiovascular Exam Present: RRR - Routine Abdominal Exam Present: soft - Routine Extremities Exam Comments: no pedal edema. - Routine Neurological Exam Present: alert Results Procedures completed during hospitalization: none Labs on day of discharge: Labs from last 24 hours 03/22/18 03/22/18 03/22/18 16:27 09:57 09:35 POC Glucose 107 94 Ammonia 33 H - Impressions ITS Impressions Chest X-Ray 03/20/18 03:03 CONCLUSION: No acute disease Head CT 03/20/18 03:03 CONCLUSION: Stable brain appearance. No acute findings. . Head CTA 03/20/18 03:03 CONCLUSION: No acute [place] vascular findings Neck CTA 03/20/18 03:03 CONCLUSION: No significant carotid stenosis. Discharge Plan - Discharge Disposition Patient Disposition: 03 Discharge to SNF - Discharge Condition Condition: Fair - Physicians Team Primary Care Provider: UNKNOWN, Attending Provider: Amanda Jordan Other Providers: Sarah Bynum MD
[2018-03-23 08:19] VITALS: BP 198/82; RESP 18; TEMP 97.6; O2SAT 96
[2018-03-23] MEDS: Metoprolol Tartrate 50 MG Tablet PO SCH (08:44)
[2018-03-23] MEDS: Enoxaparin Inj 40 MG/0.4 ML Syringe SQ SCH (08:44)
[2018-03-23] MEDS: amLODIPine 5 MG Tablet PO SCH (08:44)
[2018-03-23] MEDS: Senna/Docusate Sodium 8.6/50 MG Tablet PO SCH (09:45)
[2018-03-23 09:53] VITALS: PULSE 68
[2018-03-23] MEDS: Sodium Chloride 0.9% 2 ML Flush BID IV.FLUSH SCH (10:52)
== END 2018-03-23 11:12 ==
LOC: NEPC 02:57 → NEDA 02:57 → NEPGCP 07:55
PROVIDERS: ADMIT Internal Medicine; ATTEND Internal Medicine

== ENCOUNTER 2018-08-03 01:05 | Inpatient (IN) ==
--- NOTE | 2018-08-03 01:44 | XR ---
EXAM DATE: 08/03/2018 1:34 AM EST AGE/SEX: 73 years / Male INDICATIONS: Short of breath. CLINICAL DATA: This is the patient's initial encounter. Patient reports that signs and symptoms have been present for 1 day and indicates a pain score of Nonresponsive. MEDICAL/SURGICAL HISTORY: Non-responsive. Non-responsive. COMPARISON: [facility], RIBS RIGHT MIN 3V W EXP CHEST, 07/12/2018. . FINDINGS: A single AP view of the chest demonstrates the lungs to be symmetrically hypoinflated with some minim al atelectatic changes laterally in the right base. Lungs are otherwise clear. No effusions. Accounti ng for the low lung findings, heart size is normal. Osseous structures are intact. CONCLUSION: Hypoinflation with some minimal atelectatic changes laterally in the right base. No confluent infiltr ate. Electronically signed by: Hari Demarco MD Board Certified Radiologist 08/03/2018 1:43 AM EST
[2018-08-03 01:50] LABS: Baso % (Auto) 0.5 % (0.0-2.0); Eos # (Auto) 0.1 th/mm3 (0.0-0.4); Eos % (Auto) 1.4 % (0.0-4.0); Hematocrit 42.7 % (39.0-51.0); Hemoglobin 14.5 gm/dL (13.0-17.0); Lymph # (Auto) 2.8 th/mm3 (1.0-4.8); Lymph % (Auto) 33.3 % (9.0-44.0); Mean Corpuscular HGB Conc 33.9 % (32.0-36.0); Mean Corpuscular Hemoglobin 30.9 pg (27.0-34.0); Mean Corpuscular Volume 91.2 fL (80.0-100.0); Mean Platelet Volume 9.4 fL (7.0-11.0); Mono # (Auto) 0.6 th/mm3 (0.0-0.9); Mono % (Auto) 7.4 % (0.0-8.0); Neut # (Auto) 4.8 th/mm3 (1.8-7.7); Neut % (Auto) 57.4 % (16.0-70.0); Platelet Count 155 th/mm3 (150-450); Red Blood Count 4.68 mil/mm3 (4.50-5.90); Red Cell Distribution Width 13.9 % (11.6-17.2); White Blood Count 8.3 th/mm3 (4.0-11.0)
[2018-08-03 02:03] LABS: Alanine Aminotransferase 36 U/L (12-78); Albumin 3.5 g/dL (3.4-5.0); Anion Gap 6 meq/L (5-15); Blood Urea Nitrogen 16 mg/dL (7-18); Calcium 8.5 mg/dL (8.5-10.1); Carbon Dioxide 28.7 meq/L (21.0-32.0); Chloride 103 meq/L (98-107); Glomerular Filtration Rate 54 mL/min (>89); Glucose,Random 121 mg/dL (74-106); Lipase 17 U/L (73-393); Sodium 138 meq/L (136-145)
[2018-08-03 02:04] LABS: Aspartate Aminotransferase 44 U/L (15-37); Magnesium 2.3 mg/dL (1.5-2.5); Potassium 4.1 meq/L (3.5-5.1)
[2018-08-03 02:12] LABS: Alkaline Phosphatase 151 U/L (45-117); Creatine Kinase 101 U/L (39-308)
--- NOTE | 2018-08-03 02:43 | ED ---
HPI General Chief complaint: Weakness Stated complaint: Weakness,Evac Time Seen by Provider: 08/03/18 02:36 Source: patient and EMS Mode of arrival: EMS Limitations: no limitations History of Present Illness HPI Narrative: The patient 73 years old and arrives with a complaint of generalized weakness for weeks. Patient has had shortness of breath for 1 day. No chest pain cough or fever. He reports good days and bad days over the past few months with regard to his generalized state of weakness and reports that today was severe. He reports sleeping most of the day. Patient has no abdominal pain no nausea vomiting or diarrhea reported. Severity mild. Past medical history includes coronary artery disease, hypertension, GERD, chronic musculoskeletal pain and hepatitis C. Related Data Home Medications Medication Instructions Recorded Confirmed duloxetine 60 mg PO DAILY 03/20/18 08/03/18 gabapentin 300 mg PO TID 03/20/18 08/03/18 metoprolol tartrate 50 mg PO BID 03/20/18 08/03/18 omeprazole 40 mg PO DAILY 03/20/18 08/03/18 ranitidine HCl [Zantac] 150 mg PO BID 03/20/18 08/03/18 tizanidine [Zanaflex] 2 mg PO TID PRN 03/20/18 08/03/18 amlodipine 10 mg PO DAILY 08/03/18 08/03/18 buprenorphine-naloxone [Suboxone] 1 film SUBLINGUAL Q24H 08/03/18 08/03/18 diazepam 10 mg PO BID PRN 08/03/18 08/03/18 oxybutynin chloride 5 mg PO TID 08/03/18 08/03/18 tizanidine 2 mg PO Q6-8H PRN 08/03/18 08/03/18 Previous Rx's Medication Instructions Recorded hydrocodone-acetaminophen [[place]] 1 tab PO Q6H PRN #8 tab 03/23/18 Allergies Allergy/AdvReac Type Severity Reaction Status Date / Time penicillin G Allergy Unknown Unverified 01/27/17 16:48 [facility] Social History Social History Substance History: Past History Second Hand Smoke Exposure: No Smoking Status: Former smoker Tobacco Type: Cigarettes How Often Do You Have a Drink Containing Alcohol: Monthly or less Immunization History Tetanus Immunization: Unsure Exam Narrative Exam Narrative: GENERAL: 73-year-old male well-nourished well-developed, sleepy at the bedside, answers questions slowly however coherently SKIN: Focused skin assessment warm/dry. HEAD: Atraumatic. Normocephalic. EYES: Pupils equal and round. No scleral icterus. No injection or drainage. ENT: No nasal bleeding or discharge. Mucous membranes pink and moist. NECK: Trachea midline. No JVD. CARDIOVASCULAR: Regular rate and rhythm. No murmur appreciated. RESPIRATORY: No accessory muscle use. Clear to auscultation. Breath sounds equal bilaterally. GASTROINTESTINAL: Soft. No focus of tenderness. MUSCULOSKELETAL: No obvious deformities. No clubbing. No cyanosis. No edema. NEUROLOGICAL: Patient is a GCS of 15. He is ANO x3. There is no focal cranial nerve deficit. The patient moves all extremities normally and equally. PSYCHIATRIC: Unable to assess Course Initial Documented Vital Signs Temperature 98.9 F 08/03/18 01:25 Pulse Rate 63 08/03/18 01:25 Respiratory Rate 12 08/03/18 01:25 Blood Pressure 127/58 L 08/03/18 01:25 Pulse Oximetry 91 L 08/03/18 01:25 Last Documented Vital Signs Temperature 98.9 F 08/03/18 01:25 Pulse Rate 63 08/03/18 01:28 Respiratory Rate 21 08/03/18 05:45 Blood Pressure 118/61 08/03/18 05:45 Pulse Oximetry 88 L 08/03/18 05:45 Critical Care Time Critical Care Time: Yes Total Critical Care Time: 45 Attestation: Aggregate critical care time was 45 minutes. Time to perform other separately billable procedures was not included in the critical care time. My time did not include minutes spent treating any other patients simultaneously or on activities that did not directly contribute to the patient's treatment. The services I provided to this patient were to treat and/or prevent clinically significant deterioration that could result in: Hypercarbia, hypoxia, multiorgan injury I provided critical care services requiring my management, as noted below: Chart data review, documentation time, medication orders and management, vital sign assessments/reviewing monitor data, ordering and reviewing lab tests, ordering and interpreting/reviewing x-rays and diagnostic studies, care of the patient and discussion of the patient with the admitting physicians. Medical Decision Making MDM Narrative Medical decision making narrative: CBC shows a white blood cell count of 8300 hemoglobin of 14.5 and a platelet count of 155 Comprehensive panel is essentially unremarkable Troponin is less than 0.02 EKG shows sinus rhythm at a rate of 66 with a QRS duration of 97 and a TN interval of 189, no T wave inversions or ST elevation Chest x-ray shows hypoinflation Patient has been resting comfortably in the ED. We see the workup revealing no acute disease process. Extreme fatigue in the setting of 10 mg of Valium twice daily in addition to morphine and tizanidine raises concern for polypharmacy. This is especially of concern in the setting of 120-hour plus half life of Valium. ABG 7.407/50.7/31.1 pO 56.8, O2Sat 86.4% on 4LNC Patient is significantly altered here with relative hypoxia at 86.4 on 4 L nasal cannula with a PCO2 of approximately 51. Narcan given here which had no effect Call to [facility] at 530AM. CTA shows bilateral consolidation concerning for early pneumonia blood cultures drawn antibiotic started BIPAP started at 600AM due to O2 sats in high 80s on 4L NC. Medical Screen Exam Complete: Yes Emergency Medical Condition: Yes Lab Data Result diagrams: 08/03/18 01:25 08/03/18 01:25 Lab Results 08/03/18 08/03/18 08/03/18 Range/Units 01:25 01:25 03:58 WBC 8.3 (4.0-11.0) th/mm3 RBC 4.68 (4.50-5.90) mil/mm3 Hgb 14.5 (13.0-17.0) gm/dL Hct 42.7 (39.0-51.0) % MCV 91.2 (80.0-100.0) fL MCH 30.9 (27.0-34.0) pg MCHC 33.9 (32.0-36.0) % RDW 13.9 (11.6-17.2) % Plt Count 155 (150-450) th/mm3 MPV 9.4 (7.0-11.0) fL Neut % (Auto) 57.4 (16.0-70.0) % Lymph % (Auto) 33.3 (9.0-44.0) % [place] % (Auto) 7.4 (0.0-8.0) % Eos % (Auto) 1.4 (0.0-4.0) % Baso % (Auto) 0.5 (0.0-2.0) % Neut # (Auto) 4.8 (1.8-7.7) th/mm3 Lymph # (Auto) 2.8 (1.0-4.8) th/mm3 [place] # (Auto) 0.6 (0.0-0.9) th/mm3 Eos # (Auto) 0.1 (0.0-0.4) th/mm3 Baso # (Auto) 0.0 (0.0-0.2) th/mm3 WBC Differential . Differential Comment Auto diff final Puncture Site Right radial Patient Temperature 98.6 O2 Saturation 86 L* (90-100) % ABG pH 7.41 (7.380-7.420) ABG pCO2 51 H* (38-42) mmHg ABG pO2 57 L* (61-120) mmHg ABG HCO3 31 H (22-26) mmol/L ABG O2 Content 16.4 (12.0-20.0) Vol % ABG Base Excess 6.6 H (-2-2) mmol/L ABG Methemoglobin 1.0 (0-2) % Elliot Test Present Hemoglobin 13.5 (12.0-16.0) G/DL Carboxyhemoglobin 2.2 (0-4) % O2 Delivery Device Nasal cannula Liter Flow 4.00 L/M Critical Value Yes Sodium 138 (136-145) meq/L Potassium 4.1 (3.5-5.1) meq/L Chloride 103 (98-107) meq/L Carbon Dioxide 28.7 (21.0-32.0) meq/L Anion Gap 6 (5-15) meq/L BUN 16 (7-18) mg/dL Creatinine 1.30 (0.60-1.30) mg/dL Estimated GFR 54 L (>89) mL/min Random Glucose 121 H (74-106) mg/dL Calcium 8.5 (8.5-10.1) mg/dL Magnesium 2.3 (1.5-2.5) mg/dL Total Bilirubin 0.8 (0.2-1.0) mg/dL AST 44 H (15-37) U/L ALT 36 (12-78) U/L Alkaline Phosphatase 151 H (45-117) U/L Total Creatine Kinase 101 (39-308) U/L CK-MB (CK-2) Less than 1.0 (0.5-3.6) ng/mL Troponin I Less than 0.02 L (0.02-0.05) ng/mL Total Protein 9.0 H (6.4-8.2) g/dL Albumin 3.5 (3.4-5.0) g/dL Lipase 17 L (73-393) U/L Imaging Data Radiologist's impression: Chest X-Ray 08/03/18 01:21 CONCLUSION: Hypoinflation with some minimal atelectatic changes laterally in the right base. No confluent infiltrate. Chest CTA 08/03/18 05:15 CONCLUSION: 1. Patchy airspace disease in both lung bases, left worse than right. Findings could represent early infiltrate, particularly on the left 2. No pulmonary embolus. 3. Atherosclerotic calcification of the coronary arteries. Discharge Plan Discharge Disposition Patient Disposition: ED Admit(ED Internal Use Only) Discharge Order Discharge Orders: Discharge Order (Routine); Ordered 08/03/18 Ordered By: Mario Pedraza Discharge Details Diagnosis: Generalized weakness Physicians Team ED Provider: Mario Pedraza Primary Care Provider: UNKNOWN, Rxs /Orders / Referrals /Forms Prescriptions: No Action duloxetine 60 mg Capsule,Delayed Release(Dr/Ec) 60 mg PO DAILY RF: 0 gabapentin 300 mg Capsule 300 mg PO TID RF: 0 metoprolol tartrate 25 mg Tablet 50 mg PO BID RF: 0 omeprazole 40 mg Capsule,Delayed Release(Dr/Ec) 40 mg PO DAILY RF: 0 ranitidine HCl [Zantac] 150 mg Tablet 150 mg PO BID RF: 0 tizanidine [Zanaflex] 2 mg Capsule 2 mg PO TID PRN (Reason: Acid Reflux) RF: 0 hydrocodone-acetaminophen [Paris] 5-325 mg Tablet 1 tab PO Q6H PRN (Reason: acute pain >4) Qty: 8 RF: 0 tizanidine 2 mg Tablet 2 mg PO Q6-8H PRN (Reason: Muscle Spasm) RF: 0 amlodipine 10 mg Tablet 10 mg PO DAILY RF: 0 diazepam 10 mg Tablet 10 mg PO BID PRN (Reason: Anxiety) RF: 0 oxybutynin chloride 5 mg Tablet 5 mg PO TID RF: 0 buprenorphine-naloxone [Suboxone] 4-1 mg Film 1 film SUBLINGUAL Q24H RF: 0 Status ED Status: In Room
[2018-08-03 04:11] LABS: ABG Base Excess 6.6 mmol/L (-2-2); ABG PCO2 51 mmHg (38-42); ABG PO2 57 mmHg (61-120)
[2018-08-03] MEDS ORDERED: Naloxone Inj 2 MG/2 ML Vial IV.PUSH ONE (04:23)
--- NOTE | 2018-08-03 05:47 | CT ---
EXAM DATE: 08/03/2018 5:40 AM EST AGE/SEX: 73 years / Male INDICATIONS: Increasing shortness of breath and weakness; rule out pulmonary embolus. CLINICAL DATA: This is the patient's initial encounter. Patient reports that signs and symptoms have been present for 4 - 6 months and indicates a pain score of 0/10. MEDICAL/SURGICAL HISTORY: Cardiovascular disease. Hepatitis C. None. RADIATION DOSE: 15.66 CTDI (mGy) COMPARISON: [facility], CHEST 1V SINGLE AP, 08/03/2018. . TECHNIQUE: Volumetric scanning was performed using a multi-row detector CT scanner during bolus infu edie of 60 ml Omnipaque 350 (iohexol) nonionic water-soluble contrast as a single exam dose. The una a was post processed with a variety of visualization algorithms including full volume maximum intensi ty projection and sliding thin slab reformation. Using automated exposure control and adjustment of the mA and/or kV according to patient size, radiation dose was kept as low as reasonably achievable t o obtain optimal diagnostic quality images. DICOM format image data is available electronically for review and comparison. FINDINGS: Pulmonary Arteries: No filling defects are seen in the pulmonary arteries out to the subsegmental ve ssels. The left and right pulmonary arteries are normal in diameter. Lung: Patchy airspace disease in both lung bases, left worse than right. Effusion: None. Mediastinum: No evidence of mediastinal or hilar adenopathy. Athetotic calcification of the coronary arteries.. Other: The axilla is unremarkable. CONCLUSION: 1. Patchy airspace disease in both lung bases, left worse than right. Findings could represent early infiltrate, particularly on the left 2. No pulmonary embolus. 3. Atherosclerotic calcification of the coronary arteries. Electronically signed by: Hari Demarco MD Board Certified Radiologist 08/03/2018 5:45 AM EST
[2018-08-03] MEDS ORDERED: Azithromycin Inj 500 MG in Sodium Chlor 0.9% Inj 250 ML IV.SIG ONE (05:58)
[2018-08-03] MEDS ORDERED: Vancomycin Consult Pharmacy OTHER ONE ×2 (06:04→06:15)
[2018-08-03] MEDS ORDERED: Bisacodyl 10 MG Supp RECTAL PRN (06:04)
[2018-08-03] MEDS ORDERED: Vancomycin Inj 1,000 MG in Sodium Chlor 0.9% Inj 250 ML IV.SIG ONE (06:04)
[2018-08-03] MEDS ORDERED: Acetaminophen 325 MG Tablet PO PRN (06:04)
[2018-08-03] MEDS: Heparin - SQ 10,000 UNITS/ML Vial SQ SCH ×2 (06:23→18:29)
[2018-08-03] MEDS: Piperacil/Tazo 4.5 GM Premix 4.5 GM/100 ML BAG IV.SIG SCH ×4 (07:30→23:31)
[2018-08-03 07:54] LABS: ABG Base Excess 4.2 mmol/L (-2-2); ABG PCO2 45 mmHg (38-42); ABG PO2 65 mmHg (61-120)
[2018-08-03] MEDS: Azithromycin Inj 500 MG in Sodium Chlor 0.9% Inj 250 ML IV.SIG SCH (08:11)
--- NOTE | 2018-08-03 08:35 | P.HPIM ---
History of Present Illness Primary Care Physician: UNKNOWN Chief Complaint: shortness of breath History of Present Illness: patient is a 73 y/o male with history of hypertension, chronic smoker, who was brought to ER with shortness of breath and generalized weakness. patient was somewhat lethargic at the time of my evaluation and most of the information was obtained from ER documents. he says that he's had some sob for the past few days. has minimal cough and sputum production with no report of fever. he denies any pain. he was on BiPaP at the time of my evaluation. Inpatient Certification Inpatient Certification: I certify that the inpatient services were ordered in accordance with Medicare regulations governing the order. This includes certification that hospital inpatient services are reasonable and necessary and in the case of services not specified as inpatient-only under 42 CFR 419.22(n), that they are appropriately provided as inpatient services in accordance to with the 2-midnight benchmark under 43 CFR 412.3(e) Estimated Total Length of Stay (Days): 3 Plans for Post Hospital Care: Not yet determined Review of Systems Review of Systems: all other systems reviewed are negative [facility] Medical History Medical History Coronary artery disease (Acute) Depression (Acute) Hepatitis C (Acute) History not obtained (Acute) Surgical History Surgical History No history of previous surgery (Acute) Social History Social History Substance History: Past History Second Hand Smoke Exposure: No Smoking Status: Former smoker Tobacco Type: Cigarettes How Often Do You Have a Drink Containing Alcohol: Monthly or less Immunization History Tetanus Immunization: Unsure Medications and Allergies Allergies Allergy/AdvReac Type Severity Reaction Status Date / Time penicillin G Allergy Unknown UNKNOWN Verified 08/03/18 07:53 Home Medications Medication Instructions Recorded Confirmed Type duloxetine 60 mg PO DAILY 03/20/18 08/03/18 History gabapentin 300 mg PO TID 03/20/18 08/03/18 History metoprolol tartrate 50 mg PO BID 03/20/18 08/03/18 History omeprazole 40 mg PO DAILY 03/20/18 08/03/18 History ranitidine HCl [Zantac] 150 mg PO BID 03/20/18 08/03/18 History tizanidine [Zanaflex] 2 mg PO TID PRN 03/20/18 08/03/18 History amlodipine 10 mg PO DAILY 08/03/18 08/03/18 History buprenorphine-naloxone [Suboxone] 1 film SUBLINGUAL Q24H 08/03/18 08/03/18 History diazepam 10 mg PO BID PRN 08/03/18 08/03/18 History oxybutynin chloride 5 mg PO TID 08/03/18 08/03/18 History tizanidine 2 mg PO Q6-8H PRN 08/03/18 08/03/18 History Active Medications: Active Medications Acetaminophen (Tylenol) 650 mg PO Q4H PRN PRN Reason: Temp > 100.4 Al Hydroxide/Mg Hydroxide (Milk Of Magnesia Liq) 30 ml PO Q12H PRN PRN Reason: Mild Constipation Bisacodyl (Dulcolax Supp) 10 mg RECTAL DAILY PRN PRN Reason: SEVERE CONSITIPATION Heparin Sodium (Porcine) (Heparin Inj) 5,000 units SQ Q12H [facility] Last Admin: 08/03/18 06:23 Dose: 5,000 units Azithromycin 500 mg/ Sodium (Chloride) 250 mls @ 250 mls/hr IV.SIG Q24H [facility] Last Admin: 08/03/18 08:11 Dose: Not Given Piperacillin/Tazobactam/Dextrose (Zosyn 4.5 Gm Premix) 4.5 gm in 100 mls @ 200 mls/hr IV.SIG Q6H [facility] Last Admin: 08/03/18 07:30 Dose: 200 mls/hr Lactulose (Lactulose Liq) 30 ml PO DAILY PRN PRN Reason: SEVERE CONSITIPATION Ondansetron HCl (Zofran Inj) 4 mg IV.PUSH Q6H PRN PRN Reason: NAUSEA OR VOMITING Senna/Docusate Sodium (Stacie-Colace) 1 tab PO BID [facility] Sennosides (Senokot) 17.2 mg PO Q12H PRN PRN Reason: Moderate Constipation Sodium Chloride (Ns Flush) 2 ml IV.FLUSH PRN PRN PRN Reason: FLUSH AFTER USING IV ACCESS Sodium Chloride (Ns Flush) 2 ml IV.FLUSH BID COLT Sodium Chloride (Ns Flush) 2 ml IV.FLUSH PRN PRN PRN Reason: FLUSH AFTER USING IV ACCESS Physical Exam Vital signs: Vital Signs 08/03/18 01:25 08/03/18 01:28 08/03/18 05:45 Temperature 98.9 F Pulse Rate 63 63 Respiratory Rate 12 21 Blood Pressure 127/58 L 118/61 Pulse Oximetry 91 L 88 L 08/03/18 05:52 08/03/18 07:56 Temperature Pulse Rate Respiratory Rate Blood Pressure Pulse Oximetry 91 L 95 Intake & Output 08/02/18 08/03/18 08/03/18 18:59 06:59 18:59 Intake Total 250 / 250 Balance 250 / 250 Intake: IV 250 / 250 Azithromycin Inj 500 MG In NS 250 / 250 Inj 250 ML @ 250 mls/hr IV.SIG ONCE ONE Rx#:[id number] Constitutional no acute distress Comments: however on BiPaP. Routine HEENT Exam Eye: Present PERRL Routine Neck Exam Present supple Routine Respiratory Exam Present CTA bilaterally Routine Cardiovascular Exam Present RRR Routine Abdominal Exam Present soft Routine Extremities Exam Comments: mild bilateral pedal edema. Routine Neurological Exam somewhat lethargic but arousable. Results Labs CBC & Chem 7: 08/03/18 01:25 08/03/18 01:25 Imaging Impressions Chest X-Ray 08/03/18 01:21 CONCLUSION: Hypoinflation with some minimal atelectatic changes laterally in the right base. No confluent infiltrate. Chest CTA 08/03/18 05:15 CONCLUSION: 1. Patchy airspace disease in both lung bases, left worse than right. Findings could represent early infiltrate, particularly on the left 2. No pulmonary embolus. 3. Atherosclerotic calcification of the coronary arteries. Caprini VTE Risk Assessment Caprini VTE Risk Assessment: Moderate/High Risk (score >= 2) Caprini Risk Assessment Model: Point Value = 1 Point Value = 2 Point Value = 3 Point Value = 5 Age 41-60 Minor surgery BMI > 25 kg/m2 Swollen legs Varicose veins or History of unexplained or recurrent spontaneous Oral contraceptives or hormone replacement Sepsis (< 1 month) Serious lung disease, including pneumonia (< 1 month) Abnormal pulmonary function Acute myocardial infarction Congestive heart failure (< 1 month) History of inflammatory bowel disease Medical patient at bed rest Age 61-74 Arthroscopic surgery Major open surgery (> 45 min) Laparoscopic surgery (> 45 min) Malignancy Confined to bed (> 72 hours) Immobilizing plaster cast Central venous access Age >= 75 History of VTE Family history of VTE Factor V Leiden Prothrombin [id number] Lupus anticoagulant Anticardiolipin antibodies Elevated serum homocysteine Heparin-induced thrombocytopenia Other congenital or acquired thrombophilia Stroke (< 1 month) Elective arthroplasty Hip, pelvis, or leg fracture Acute spinal cord injury (< 1 month) Prophylaxis Regimen: Total Risk Factor Score Risk Level Prophylaxis Regimen 0-1 Low Early ambulation 2 Moderate Order ONE of the following: *Sequential Compression Device (SCD) *Heparin 5000 units SQ BID 3-4 Higher Order ONE of the following medications: *Heparin 5000 units SQ TID *Enoxaparin/Lovenox 40 mg SQ daily (WT < 150 kg, CrCl > 30 mL/min) *Enoxaparin/Lovenox 30 mg SQ daily (WT < 150 kg, CrCl > 10-29 mL/min) *Enoxaparin/Lovenox 30 mg SQ BID (WT < 150 kg, CrCl > 30 mL/min) AND/OR *Sequential Compression Device (SCD) 5 or more Highest Order ONE of the following medications: *Heparin 5000 units SQ TID (Preferred with Epidurals) *Enoxaparin/Lovenox 40 mg SQ daily (WT < 150 kg, CrCl > 30 mL/min) *Enoxaparin/Lovenox 30 mg SQ daily (WT < 150 kg, CrCl > 10-29 mL/min) *Enoxaparin/Lovenox 30 mg SQ BID (WT < 150 kg, CrCl > 30 mL/min) AND *Sequential Compression Device (SCD) Assessment and Plan Plan A/P - acute hypoxemic respiratory failure/ pneumonia currently on BiPaP- will proceed with oxygen via N/C as tolerates. start on neb treatment- continue with IV antibiotic and follow the cultures- consult pulmonary. - Hypertension resume Amlodipine- hold Metoprolol for now. - DVT prophylaxis with subq Heparin. Discussed Condition With: the patient.
[2018-08-03] MEDS: amLODIPine 10 MG Tablet PO SCH (09:33)
[2018-08-03] MEDS: Famotidine 20 MG Tablet PO SCH ×2 (09:35→20:49)
[2018-08-03] MEDS: Senna/Docusate Sodium 8.6/50 MG Tablet PO SCH ×2 (10:48→20:49)
--- NOTE | 2018-08-03 14:31 | ECG ---
Date Performed: 08/03/2018 Time Performed: 01:16:18 PTAGE: 73 years EKG: Sinus rhythm BORDERLINE LEFT AXIS DEVIATION BORDERLINE ECG WARNING: DATA QUALITY MAY AFFECT INTERPRETATION PREVIOUS TRACING : 03/20/2018 03.01 Since the previous tracing, no significant change not ed DOCTOR: Alok Lee Interpretating Date/Time 08/03/2018 14:23:05
[2018-08-03 17:16] LABS: Bacteria,Urine Occasional /hpf; Bilirubin,Urine Negative (Negative); Clarity,Urine Cloudy (Clear); Color,Urine Yellow (Yellw/Straw); Glucose,Urine (UA) Negative (Negative); Leukocyte Esterase,Urine Large (Negative); Nitrite,Urine Negative (Negative); Specific Gravity,Urine 1.031 (1.002-1.035); Squamous Epithelial Cell,Urine 3 /hpf (0-5)
[2018-08-03 17:24] LABS: Amphetamine Screen,Urine Neg (Neg); Barbiturate Screen,Urine Neg (Neg); Cannabinoid Screen,Urine Neg (Neg); Cocaine Screen,Urine Neg (Neg)
[2018-08-03 17:31] LABS: Opiate Screen,Urine Neg (Neg)
--- NOTE | 2018-08-03 20:19 | MB ---
cc: Lisandro Rudolph MD DATE: 08/03/2018 REQUESTING PHYSICIAN: Meredith Jordan MD REASON FOR CONSULTATION: Evaluate for COPD and pneumonia. HISTORY OF PRESENT ILLNESS: Mr. Vee is a 73-year-old male with a history of smoking and continues to smoke a half pack of cigarettes, history of alcohol use in the past, hepatitis. He states that he has been having shortness of breath for the last 5-6 weeks. He has a cough and sputum production. Denies any fever or chills. No night sweats. The patient was feeling very lethargic and was brought to the emergency room. LABORATORY DATA: He had a workup done. He had a blood gas done which showed a pH of 7.41, pCO2 of 51, pO2 of 57. He was put on BiPAP. Repeat blood gas with a pH of 7.42, pCO2 of 45, pO2 of 65. Now, he is weaned down to nasal cannula. His CBC showed WBC count 8.3, hemoglobin 14.5, hematocrit 42.7, MCV 90, platelet count 155. Sodium 130, potassium 4.1, chloride 103, CO2 of 28, BUN 16, creatinine 1.30. He had a CTA of the chest done. It does not show any pulmonary embolism. It shows patchy airspace disease in both lungs, worse on the left than the right. PAST MEDICAL HISTORY: Significant for a history of COPD, hepatitis C, coronary artery disease, anxiety, depression, history of chronic pain. MEDICATIONS: He is currently takin. Milk of magnesia. 2. Albuterol and Atrovent nebulizer treatments. 3. Norvasc 10 mg a day. 4. Zithromax 500 mg a day. 5. Famotidine 20 mg a day. 6. Heparin 5000 q.12 hours. 7. Zofran p.r.n. 8. Zosyn 4.5 grams q.6 hours. ALLERGIES: HE IS ALLERGIC TO PENICILLIN. SOCIAL HISTORY: He is and lives alone. 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 He has a long history of smoking and continues to smoke a half pack of cigarettes a day. He used drugs before including marijuana and he used to drink heavily. FAMILY HISTORY: He has 1 daughter. REVIEW OF SYSTEMS: Normally, he is up, around and active. He follows with Dr. Bernabe Singh and pain specialist, Dr. Alvarado. PHYSICAL EXAMINATION: GENERAL: Elderly male, mildly short of breath, somewhat tired, not in any acute distress. VITAL SIGNS: Blood pressure 111/54, heart rate 70, respirations 16, temperature 98. HEENT: Pupils are equal and reactive to light. Oral mucosa and nasal mucosa are normal. NECK: Supple. JVP not raised. CHEST: Equal air entry bilaterally. He has expiratory rhonchi. HEART: S1 and S2 normal. ABDOMEN: Benign. EXTREMITIES: No edema. IMPRESSION: 1 . Bilateral patchy pneumonia. 2. Chronic obstructive pulmonary disease. 3. Nicotine use. 4. History of alcohol use. 5. History of hepatitis C. 6. Chronic pain. PLAN: We will continue antibiotics, Zithromax and Zosyn, aerosol treatments with albuterol and Atrovent, give him Advair 2 puffs twice a day and supplement his oxygen. Encourage him to quit smoking. He is on heparin for DVT prophylaxis. Once he gets better, we will check his pulmonary function study. Further treatment pending the course in the hospital. Thank you, Dr. Jordan, for this consult. MD ROSA Mary/betsy , 07:00 PM , 07:10 PM
[2018-08-04] MEDS: Piperacil/Tazo 4.5 GM Premix 4.5 GM/100 ML BAG IV.SIG SCH ×4 (06:00→23:34)
[2018-08-04] MEDS: Heparin - SQ 10,000 UNITS/ML Vial SQ SCH ×2 (06:00→17:30)
[2018-08-04 06:29] LABS: Baso % (Auto) 0.7 % (0.0-2.0); Eos # (Auto) 0.1 th/mm3 (0.0-0.4); Hematocrit 37.7 % (39.0-51.0); Hemoglobin 12.7 gm/dL (13.0-17.0); Lymph # (Auto) 0.8 th/mm3 (1.0-4.8); Lymph % (Auto) 16.3 % (9.0-44.0); Mean Corpuscular HGB Conc 33.8 % (32.0-36.0); Mean Corpuscular Hemoglobin 30.5 pg (27.0-34.0); Mean Corpuscular Volume 90.5 fL (80.0-100.0); Mean Platelet Volume 8.8 fL (7.0-11.0); Mono # (Auto) 0.4 th/mm3 (0.0-0.9); Mono % (Auto) 8.6 % (0.0-8.0); Neut # (Auto) 3.3 th/mm3 (1.8-7.7); Neut % (Auto) 72.4 % (16.0-70.0); Platelet Count 127 th/mm3 (150-450); Red Blood Count 4.17 mil/mm3 (4.50-5.90); Red Cell Distribution Width 13.3 % (11.6-17.2); White Blood Count 4.6 th/mm3 (4.0-11.0)
[2018-08-04 06:57] LABS: Carbon Dioxide 31.6 meq/L (21.0-32.0); Potassium 3.7 meq/L (3.5-5.1)
[2018-08-04] MEDS: Azithromycin Inj 500 MG in Sodium Chlor 0.9% Inj 250 ML IV.SIG SCH (07:23)
[2018-08-04] MEDS: Famotidine 20 MG Tablet PO SCH ×2 (08:40→20:15)
[2018-08-04] MEDS: Senna/Docusate Sodium 8.6/50 MG Tablet PO SCH ×2 (08:40→20:16)
[2018-08-04] MEDS: amLODIPine 10 MG Tablet PO SCH (13:00)
--- NOTE | 2018-08-04 17:58 | P.PNIM ---
Subjective Interval history: Pain, wakes up for exam. Says he is generally feeling unwell. Denies any chest pain. He says he wants his pain meds. He reports taking regular narcotic pain meds, however he does not appear to have any narcotic prescriptions on E force Physical Exam Vital signs: Vital Signs 08/03/18 18:30 08/03/18 19:00 08/03/18 19:35 Temperature 97.8 F Pulse Rate 61 66 63 Respiratory Rate 20 18 Blood Pressure 132/72 Pulse Oximetry 100 96 08/03/18 20:00 08/03/18 21:00 08/03/18 22:00 Temperature 97.7 F Pulse Rate 67 76 64 Respiratory Rate 20 Blood Pressure 127/51 L Pulse Oximetry 98 08/03/18 23:00 08/04/18 00:00 08/04/18 01:00 Temperature 97.6 F Pulse Rate 62 65 62 Respiratory Rate 20 Blood Pressure 118/65 Pulse Oximetry 94 L 08/04/18 02:00 08/04/18 03:00 08/04/18 03:37 Temperature Pulse Rate 62 62 56 L Respiratory Rate Blood Pressure Pulse Oximetry 08/04/18 04:00 08/04/18 05:00 08/04/18 06:00 Temperature 97.7 F Pulse Rate 56 L 60 56 L Respiratory Rate 22 Blood Pressure 121/73 Pulse Oximetry 93 L 08/04/18 07:15 08/04/18 08:00 08/04/18 08:06 Temperature 97.6 F 97.6 F Pulse Rate 65 66 63 Respiratory Rate 16 18 16 Blood Pressure 98/60 L 98/60 L Pulse Oximetry 93 L 93 L 08/04/18 09:00 08/04/18 10:00 08/04/18 11:00 Temperature Pulse Rate 70 72 71 Respiratory Rate Blood Pressure Pulse Oximetry 08/04/18 12:00 08/04/18 13:00 08/04/18 14:00 Temperature 97.8 F Pulse Rate 66 68 72 Respiratory Rate 18 Blood Pressure 107/62 Pulse Oximetry 92 L 08/04/18 15:00 08/04/18 16:00 Temperature 98.2 F Pulse Rate 66 66 Respiratory Rate 18 Blood Pressure 126/64 Pulse Oximetry 94 L Intake & Output 08/03/18 08/04/18 08/04/18 18:59 06:59 18:59 Intake Total 700 / 700 200 / 200 450 / 450 Output Total 250 / 250 Balance 700 / 700 -50 / -50 450 / 450 Intake: IV 700 / 700 200 / 200 450 / 450 Azithromycin Inj 500 MG In NS 250 / 250 250 / 250 Inj 250 ML @ 250 mls/hr IV.SIG Q24H [facility] Rx#:[id number] Zosyn 4.5 GM Premix 4.5 gm In 200 / 200 200 / 200 200 / 200 100 ml @ 200 mls/hr IV.SIG Q6H [facility] Rx#:[id number] Vancomycin Inj 1,000 MG In NS 250 / 250 Inj 250 ML @ 250 mls/hr IV.SIG ONCE ONE Rx#:[id number] Output: Urine 250 / 250 Other: # Incontinent Voids 2 Date of Last Bowel Movement 08/04/18 Narrative: GENERAL: Patient sitting up in bed. Sleeping, wakes up for exam. Appears comfortable. SKIN: Warm and dry. HEAD: Normocephalic. EYES: No scleral icterus. No injection or drainage. NECK: Supple, trachea midline. No JVD. CARDIOVASCULAR: Regular rate and rhythm without murmurs, gallops, or rubs. RESPIRATORY: Breath sounds equal bilaterally. No accessory muscle use. GASTROINTESTINAL: Abdomen soft, non-tender, nondistended. MUSCULOSKELETAL: No cyanosis, or edema. Results Labs CBC & Chem 7: 08/04/18 06:04 08/04/18 06:04 Labs: Microbiology 08/03/18 16:40 Clean Catch Urine Urine Culture - Preliminary Yeast species 08/03/18 05:45 Blood - Peripheral Aerobic Blood Culture - Preliminary No growth in 1 day 08/03/18 05:45 Blood - Peripheral Anaerobic Blood Culture - Preliminary No growth in 1 day 08/03/18 05:50 Blood - Peripheral Aerobic Blood Culture - Preliminary No growth in 1 day 08/03/18 05:50 Blood - Peripheral Anaerobic Blood Culture - Preliminary No growth in 1 day Assessment and Plan Plan //acute hypoxemic respiratory failure/ pneumonia currently on BiPaP- will proceed with oxygen via N/C as tolerates. start on neb treatment- continue with IV antibiotic and follow the cultures- consult pulmonary. = Continue treatment as per pulmonology. Expect this is exacerbated by pain meds. Patient reports being on narcotic pain meds but none can be found on E force. Suspect drug-seeking behavior. Nevertheless he is satting 94% on 4 L. //Hypertension resume Amlodipine- hold Metoprolol for now. //Possible history of overactive bladder. Will discontinue oxybutynin which is not appropriate for older males //DVT prophylaxis with subq Heparin. Discussed Condition With: the patient. Discussed Condition With: Patient, nurse
--- NOTE | 2018-08-04 18:51 | P.PNPL ---
Subjective Interval history: 73 YOWM with COPD , patchy lung infilterates Mild sob No Fever no CP Physical Exam Vital signs: Vital Signs 08/03/18 19:00 08/03/18 19:35 08/03/18 20:00 Temperature 97.7 F Pulse Rate 66 63 67 Respiratory Rate 18 20 Blood Pressure 127/51 L Pulse Oximetry 96 98 08/03/18 21:00 08/03/18 22:00 08/03/18 23:00 Temperature Pulse Rate 76 64 62 Respiratory Rate Blood Pressure Pulse Oximetry 08/04/18 00:00 08/04/18 01:00 08/04/18 02:00 Temperature 97.6 F Pulse Rate 65 62 62 Respiratory Rate 20 Blood Pressure 118/65 Pulse Oximetry 94 L 08/04/18 03:00 08/04/18 03:37 08/04/18 04:00 Temperature 97.7 F Pulse Rate 62 56 L 56 L Respiratory Rate 22 Blood Pressure 121/73 Pulse Oximetry 93 L 08/04/18 05:00 08/04/18 06:00 08/04/18 07:15 Temperature 97.6 F Pulse Rate 60 56 L 65 Respiratory Rate 16 Blood Pressure 98/60 L Pulse Oximetry 93 L 08/04/18 08:00 08/04/18 08:06 08/04/18 09:00 Temperature 97.6 F Pulse Rate 66 63 70 Respiratory Rate 18 16 Blood Pressure 98/60 L Pulse Oximetry 93 L 08/04/18 10:00 08/04/18 11:00 08/04/18 12:00 Temperature 97.8 F Pulse Rate 72 71 66 Respiratory Rate 18 Blood Pressure 107/62 Pulse Oximetry 92 L 08/04/18 13:00 08/04/18 14:00 08/04/18 15:00 Temperature Pulse Rate 68 72 66 Respiratory Rate Blood Pressure Pulse Oximetry 08/04/18 16:00 08/04/18 17:00 08/04/18 18:00 Temperature 98.2 F Pulse Rate 66 62 64 Respiratory Rate 18 Blood Pressure 126/64 Pulse Oximetry 94 L Intake & Output 08/03/18 08/04/18 08/04/18 18:59 06:59 18:59 Intake Total 700 / 700 200 / 200 1270 / 1270 Output Total 250 / 250 400 / 400 Balance 700 / 700 -50 / -50 870 / 870 Intake: IV 700 / 700 200 / 200 550 / 550 Azithromycin Inj 500 MG In NS 250 / 250 250 / 250 Inj 250 ML @ 250 mls/hr IV.SIG Q24H [facility] Rx#:[id number] Zosyn 4.5 GM Premix 4.5 gm In 200 / 200 200 / 200 300 / 300 100 ml @ 200 mls/hr IV.SIG Q6H [facility] Rx#:[id number] Vancomycin Inj 1,000 MG In NS 250 / 250 Inj 250 ML @ 250 mls/hr IV.SIG ONCE ONE Rx#:[id number] Oral 720 / 720 Output: Urine 250 / 250 200 / 200 Urine Amount (Catheter) 200 / 200 Condom 200 / 200 Other: # Voids 2 # Incontinent Voids 2 1 Date of Last Bowel Movement 08/04/18 # Bowel Movements 1 GENERAL: Elderly WM, mild sob SKIN: Warm and dry. HEAD: Normocephalic. EYES: No scleral icterus. No injection or drainage. NECK: Supple, trachea midline. No JVD or lymphadenopathy. CARDIOVASCULAR: Regular rate and rhythm without murmurs, gallops, or rubs. RESPIRATORY: Breath sounds equal bilaterally. No accessory muscle use. GASTROINTESTINAL: Abdomen soft, non-tender, nondistended. MUSCULOSKELETAL: No cyanosis, or edema. BACK: Nontender without obvious deformity. No CVA tenderness. - Urinary Catheter Management Condom Cath placed during this visit: no Assessment and Plan - Plan IMPRESSION: 1 . Bilateral patchy pneumonia. 2. Chronic obstructive pulmonary disease. 3. Nicotine use. 4. History of alcohol use. 5. History of hepatitis C. 6. Chronic pain. PLAN: Aerosol nebs Supplement 02 with NC Cont Abx Zithro and Zosyn SQ Heparin Famotidine 20 mg bid.
[2018-08-05] MEDS: Piperacil/Tazo 4.5 GM Premix 4.5 GM/100 ML BAG IV.SIG SCH ×3 (05:31→17:25)
[2018-08-05] MEDS: Heparin - SQ 10,000 UNITS/ML Vial SQ SCH ×2 (05:32→17:23)
[2018-08-05] MEDS: Azithromycin Inj 500 MG in Sodium Chlor 0.9% Inj 250 ML IV.SIG SCH ×2 (05:33→09:27)
[2018-08-05] MEDS: Famotidine 20 MG Tablet PO SCH ×2 (08:26→21:11)
[2018-08-05] MEDS: amLODIPine 10 MG Tablet PO SCH (08:26)
[2018-08-05] MEDS: Senna/Docusate Sodium 8.6/50 MG Tablet PO SCH ×2 (08:26→21:11)
--- NOTE | 2018-08-05 12:01 | P.PNIM ---
Subjective Interval history: He is in bed appears sleepy however in not acute distress. Patient's says he has some shortness of breath and feels congestion in his chest. He also complains of generalized weakness and generalized pain. No fever or chills. No nausea or vomiting. He is not coughing. Physical Exam Vital signs: Vital Signs 08/04/18 13:00 08/04/18 14:00 08/04/18 15:00 Temperature Pulse Rate 68 72 66 Respiratory Rate Blood Pressure Pulse Oximetry 08/04/18 16:00 08/04/18 17:00 08/04/18 18:00 Temperature 98.2 F Pulse Rate 66 62 64 Respiratory Rate 18 Blood Pressure 126/64 Pulse Oximetry 94 L 08/04/18 19:00 08/04/18 20:00 08/04/18 21:00 Temperature 98.2 F Pulse Rate 66 66 62 Respiratory Rate 18 Blood Pressure 120/70 Pulse Oximetry 93 L 08/04/18 21:13 08/04/18 22:00 08/04/18 23:00 Temperature Pulse Rate 68 66 Respiratory Rate Blood Pressure Pulse Oximetry 97 08/05/18 00:00 08/05/18 01:00 08/05/18 02:00 Temperature 98.5 F Pulse Rate 62 65 64 Respiratory Rate 16 Blood Pressure 112/68 Pulse Oximetry 94 L 08/05/18 03:00 08/05/18 04:00 08/05/18 05:00 Temperature 98.2 F Pulse Rate 65 65 63 Respiratory Rate 18 Blood Pressure 124/74 Pulse Oximetry 97 08/05/18 06:00 08/05/18 08:00 Temperature 98.4 F Pulse Rate 70 63 Respiratory Rate 16 Blood Pressure 115/67 Pulse Oximetry 93 L Intake & Output 08/04/18 08/05/18 08/05/18 18:59 06:59 18:59 Intake Total 1270 / 1270 350 / 350 100 / 100 Output Total 400 / 400 1050 / 1050 Balance 870 / 870 -700 / -700 100 / 100 Weight 89 kg Intake: IV 550 / 550 350 / 350 100 / 100 Azithromycin Inj 500 MG In NS 250 / 250 250 / 250 Inj 250 ML @ 250 mls/hr IV.SIG Q24H [facility] Rx#:[id number] Zosyn 4.5 GM Premix 4.5 gm In 300 / 300 100 / 100 100 / 100 100 ml @ 200 mls/hr IV.SIG Q6H [facility] Rx#:[id number] Oral 720 / 720 Output: Urine 200 / 200 750 / 750 Urine Amount (Catheter) 200 / 200 300 / 300 Condom 200 / 200 300 / 300 Other: # Voids 2 # Incontinent Voids 1 Date of Last Bowel Movement 08/04/18 08/04/18 # Bowel Movements 1 Narrative: GENERAL: Patient is in bed appears sleepy however not in distress. SKIN: Warm and dry. HEAD: Normocephalic. EYES: No scleral icterus. No injection or drainage. NECK: Supple, trachea midline. No JVD. CARDIOVASCULAR: Regular rate and rhythm without murmurs, gallops, or rubs. RESPIRATORY: Breath sounds equal bilaterally. No accessory muscle use. GASTROINTESTINAL: Abdomen soft, non-tender, nondistended. MUSCULOSKELETAL: No cyanosis, or edema. Urinary Catheter Management Condom: Cath placed during this visit: no Results Labs CBC & Chem 7: 08/04/18 06:04 08/04/18 06:04 Labs: Microbiology 08/03/18 05:45 Blood - Peripheral Aerobic Blood Culture - Preliminary No growth in 2 days 08/03/18 05:45 Blood - Peripheral Anaerobic Blood Culture - Preliminary No growth in 2 days 08/03/18 05:50 Blood - Peripheral Aerobic Blood Culture - Preliminary No growth in 2 days 08/03/18 05:50 Blood - Peripheral Anaerobic Blood Culture - Preliminary No growth in 2 days 08/03/18 16:40 Clean Catch Urine Urine Culture - Preliminary Yeast species Assessment and Plan Plan Acute hypoxemic respiratory failure/ pneumonia on/off BiPaP- with oxygen via N/C as tolerates. Cont duoneb treatment- continue with IV antibiotic and follow the cultures- consult pulmonary. = Continue treatment as per pulmonology. Expect this is exacerbated by pain meds. Patient reports being on narcotic pain meds but none can be found on E force. Suspect drug-seeking behavior. Nevertheless he is satting 94% on 4 L. Hypertension resume Amlodipine- hold Metoprolol for now. Possible history of overactive bladder. Will discontinue oxybutynin which is not appropriate for older males DVT prophylaxis with subq Heparin. Discussed Condition With: the patient. Discussed Condition With: Patient, nurse
[2018-08-05] MEDS ORDERED: Acetaminophen 325 MG Tablet PO PRN (18:18)
--- NOTE | 2018-08-05 18:28 | P.PNPL ---
Subjective Interval history: 73 YOWM with COPD , patchy lung infilterates Mild sob No Fever no CP Feels weak " I don't think I am well yet" Physical Exam Vital signs: Vital Signs 08/04/18 19:00 08/04/18 20:00 08/04/18 21:00 Temperature 98.2 F Pulse Rate 66 66 62 Respiratory Rate 18 Blood Pressure 120/70 Pulse Oximetry 93 L 08/04/18 21:13 08/04/18 22:00 08/04/18 23:00 Temperature Pulse Rate 68 66 Respiratory Rate Blood Pressure Pulse Oximetry 97 08/05/18 00:00 08/05/18 01:00 08/05/18 02:00 Temperature 98.5 F Pulse Rate 62 65 64 Respiratory Rate 16 Blood Pressure 112/68 Pulse Oximetry 94 L 08/05/18 03:00 08/05/18 04:00 08/05/18 05:00 Temperature 98.2 F Pulse Rate 65 65 63 Respiratory Rate 18 Blood Pressure 124/74 Pulse Oximetry 97 08/05/18 06:00 08/05/18 07:00 08/05/18 08:00 Temperature 98.4 F Pulse Rate 70 62 70 Respiratory Rate 16 Blood Pressure 115/67 Pulse Oximetry 93 L 08/05/18 09:00 08/05/18 10:00 08/05/18 11:00 Temperature Pulse Rate 64 66 72 Respiratory Rate Blood Pressure Pulse Oximetry 08/05/18 12:00 08/05/18 13:00 08/05/18 13:26 Temperature 97.8 F Pulse Rate 67 66 72 Respiratory Rate 16 16 Blood Pressure 119/71 Pulse Oximetry 96 08/05/18 14:00 08/05/18 15:00 08/05/18 16:00 Temperature 98.3 F Pulse Rate 80 78 78 Respiratory Rate 16 Blood Pressure 104/51 L Pulse Oximetry 95 08/05/18 17:00 08/05/18 18:00 Temperature Pulse Rate 68 72 Respiratory Rate Blood Pressure Pulse Oximetry Intake & Output 08/04/18 08/05/18 08/05/18 18:59 06:59 18:59 Intake Total 1270 / 1270 350 / 350 1020 / 1020 Output Total 400 / 400 1050 / 1050 Balance 870 / 870 -700 / -700 1020 / 1020 Weight 89 kg Intake: IV 550 / 550 350 / 350 300 / 300 Azithromycin Inj 500 MG In NS 250 / 250 250 / 250 Inj 250 ML @ 250 mls/hr IV.SIG Q24H [facility] Rx#:[id number] Zosyn 4.5 GM Premix 4.5 gm In 300 / 300 100 / 100 300 / 300 100 ml @ 200 mls/hr IV.SIG Q6H [facility] Rx#:[id number] Oral 720 / 720 720 / 720 Output: Urine 200 / 200 750 / 750 Urine Amount (Catheter) 200 / 200 300 / 300 Condom 200 / 200 300 / 300 Other: # Voids 2 # Incontinent Voids 1 3 Date of Last Bowel Movement 08/04/18 08/04/18 08/05/18 # Bowel Movements 1 1 GENERAL: Elderly WM NAD SKIN: Warm and dry. HEAD: Normocephalic. EYES: No scleral icterus. No injection or drainage. NECK: Supple, trachea midline. No JVD or lymphadenopathy. CARDIOVASCULAR: Regular rate and rhythm without murmurs, gallops, or rubs. RESPIRATORY: Breath sounds equal bilaterally. No accessory muscle use. GASTROINTESTINAL: Abdomen soft, non-tender, nondistended. MUSCULOSKELETAL: No cyanosis, or edema. BACK: Nontender without obvious deformity. No CVA tenderness. - Urinary Catheter Management Condom Cath placed during this visit: no Assessment and Plan - Plan IMPRESSION: 1 . Bilateral patchy pneumonia. 2. Chronic obstructive pulmonary disease. 3. Nicotine use. 4. History of alcohol use. 5. History of hepatitis C. 6. Chronic pain. PLAN: Aerosol nebs Supplement 02 with NC Cont Abx Zithro and Zosyn SQ Heparin Famotidine 20 mg bid. PFT
[2018-08-06] MEDS: Piperacil/Tazo 4.5 GM Premix 4.5 GM/100 ML BAG IV.SIG SCH ×4 (02:31→19:04)
[2018-08-06] MEDS: Heparin - SQ 10,000 UNITS/ML Vial SQ SCH ×2 (05:47→19:05)
[2018-08-06] MEDS ORDERED: Haloperidol Inj 5 MG/ML Ampul IM ONE (08:43)
[2018-08-06] MEDS: Azithromycin Inj 500 MG in Sodium Chlor 0.9% Inj 250 ML IV.SIG SCH (09:34)
[2018-08-06] MEDS: Senna/Docusate Sodium 8.6/50 MG Tablet PO SCH ×2 (09:53→22:46)
[2018-08-06] MEDS: Famotidine 20 MG Tablet PO SCH ×2 (09:54→22:45)
[2018-08-06] MEDS: amLODIPine 10 MG Tablet PO SCH (09:54)
--- NOTE | 2018-08-06 12:28 | P.PNIM ---
Subjective Interval history: The patient is in bed noted of psychotic. No fever or chills. No shortness of breath. No pain in his chest. He is noted agitated on and off and requiring restraints. Will consult psychiatry Physical Exam Vital signs: Vital Signs 08/05/18 13:00 08/05/18 13:26 08/05/18 14:00 Temperature Pulse Rate 66 72 80 Respiratory Rate 16 Blood Pressure Pulse Oximetry 08/05/18 15:00 08/05/18 16:00 08/05/18 17:00 Temperature 98.3 F Pulse Rate 78 78 68 Respiratory Rate 16 Blood Pressure 104/51 L Pulse Oximetry 95 08/05/18 18:00 08/05/18 19:00 08/05/18 20:00 Temperature 98.1 F Pulse Rate 72 73 66 Respiratory Rate 16 Blood Pressure 112/67 Pulse Oximetry 94 L 08/05/18 20:28 08/05/18 20:30 08/05/18 22:00 Temperature Pulse Rate 70 84 Respiratory Rate 22 Blood Pressure Pulse Oximetry 92 L 08/05/18 23:00 08/06/18 00:00 08/06/18 01:00 Temperature 98.0 F Pulse Rate 76 73 78 Respiratory Rate 18 Blood Pressure 121/65 Pulse Oximetry 92 L 08/06/18 02:00 08/06/18 03:00 08/06/18 04:00 Temperature Pulse Rate 68 72 64 Respiratory Rate Blood Pressure Pulse Oximetry 08/06/18 05:00 08/06/18 08:00 08/06/18 08:57 Temperature 97.6 F Pulse Rate 64 70 64 Respiratory Rate 18 14 Blood Pressure 121/75 Pulse Oximetry 91 L 96 Intake & Output 08/05/18 08/06/18 08/06/18 18:59 06:59 18:59 Intake Total 1020 / 1020 240 / 240 Balance 1020 / 1020 240 / 240 Weight 88 kg Intake: IV 300 / 300 Zosyn 4.5 GM Premix 4.5 gm In 300 / 300 100 ml @ 200 mls/hr IV.SIG Q6H [facility] Rx#:[id number] Oral 720 / 720 240 / 240 Other: # Voids 3 # Incontinent Voids 3 Date of Last Bowel Movement 08/05/18 08/05/18 08/06/18 # Bowel Movements 1 Narrative: GENERAL: Patient is in bed appears in not acute distress. However he is noted agitated on and off at this time he is in restraints SKIN: Warm and dry. HEAD: Normocephalic. EYES: No scleral icterus. No injection or drainage. NECK: Supple, trachea midline. No JVD. CARDIOVASCULAR: Regular rate and rhythm without murmurs, gallops, or rubs. RESPIRATORY: Breath sounds equal bilaterally. No accessory muscle use. GASTROINTESTINAL: Abdomen soft, non-tender, nondistended. MUSCULOSKELETAL: No cyanosis, or edema. Urinary Catheter Management Condom: Cath placed during this visit: no Results Labs CBC & Chem 7: 08/06/18 17:17 08/06/18 17:17 Labs: Microbiology 08/03/18 05:45 Blood - Peripheral Aerobic Blood Culture - Preliminary No growth in 3 days 08/03/18 05:45 Blood - Peripheral Anaerobic Blood Culture - Preliminary No growth in 3 days 08/03/18 05:50 Blood - Peripheral Aerobic Blood Culture - Preliminary No growth in 3 days 08/03/18 05:50 Blood - Peripheral Anaerobic Blood Culture - Preliminary No growth in 3 days 08/03/18 16:40 Clean Catch Urine Urine Culture - Final Moni glabrata Moni tropicalis Assessment and Plan Plan Acute hypoxemic respiratory failure/ pneumonia on/off BiPaP- with oxygen via N/C as tolerates. Patient oxygen saturation is mentating well on nasal cannula. Cont duoneb treatment- continue with IV antibiotic and follow the cultures- consult pulmonary. = Continue treatment as per pulmonology. Expect this is exacerbated by pain meds. Patient reports being on narcotic pain meds but none can be found on E force. Suspect drug-seeking behavior. Nevertheless he is satting 94% on 4 L. Acute psychosis. The patient is noted agitated on and off. Placed in restraints. Receive Haldol. Consult psychiatry for evaluation Will do CT scan head has acute change in mental status Hypertension resume Amlodipine- hold Metoprolol for now. Possible history of overactive bladder. Will discontinue oxybutynin which is not appropriate for older males DVT prophylaxis with subq Heparin. Discussed Condition With: the patient. Discussed Condition With: Patient, nurse
[2018-08-06] MEDS ORDERED: Haloperidol Inj 5 MG/ML Ampul IM PRN (14:14)
--- NOTE | 2018-08-06 14:33 | P.CONPSY ---
Provisional Diagnosis Admission Date: August 03, 2018 06:07 [place] I.: Unspecified psychosis History of Present Illness Service: Medicine Primary Care Provider: UNKNOWN Chief Complaint: shortness of breath History of Present Illness: The patient is a 73-year-old man, domiciled in [facility], , father of a 40-year-old daughter, supported by Social Security, he denies previous psychiatric history, denies previous suicidal attempts, denies previous psychiatric hospitalizations, with medical history of hypertension, chronic smoker, who was brought to ER with shortness of breath and generalized weakness. patient was somewhat lethargic at the time of initial evaluation and most of the information was obtained from ER documents. he says that he's had some sob for the past few days. has minimal cough and sputum production with no report of fever. he denies any pain. he was on BiPaP at the time of the evaluation. Consulted to psychiatry due to aggressive behavior and agitation in the medical floor. On my psychiatric evaluation today the patient is restrained in 4 points, he is calm, superficially cooperative. The patient is very paranoid. As per nursing charge the patient has been paranoid for at least 24 hours. The paranoia consists are not stating that nurses "and people "have been trying to kill him and want to kidnap him". He says that for the last 2 days he has been seeing people coming inside his room, talking about him in the house, and he is very sure that they want his money. The patient seems to be very distressed by it. He has been very agitated and verbally hostile secondary to this paranoia. Had to be restrained in 4 points to calm him down. To decrease his paranoia and agitation he also had to be medicated with Haldol 2 mg. Apparently his paranoia increases with the presence of people around him. Probably paranoia he also has augmented with distress and underlying medical conditions. Other than this the patient reports to be in a good mood, he denies symptoms of depression, he denies anxiety, denies suicidal and homicidal ideation, he denies visual and auditory hallucinations. He is fully oriented x3, he is attentive, able to be verbally directed during my evaluation PPHx: No previous psychiatric history, no pre-suicide attempts, no previous psychiatric hospitalization PMHx: Hypertension Substance Hx: Denies the use of alcohol and illegal drug Family Hx: No family psychiatric history Social Hx: Patient is domiciled in [facility], , he has a 40-year- old daughter, unemployed, supported by Social Security Review of Systems All other systems reviewed negative except as stated in HPI Constitutional: Denies anorexia, Denies body ache(s), Denies chills, Denies daytime sleepiness, Denies excessive sweating, Denies fatigue, Denies fever(s), Denies headache(s), Denies increased appetite, Denies lack of energy, Denies malaise, Denies night sweats, Denies weakness, Denies weight gain, Denies weight loss, Denies other Eyes: Denies blind spots, Denies blurry vision, Denies bulging eyes, Denies change in vision, Denies double vision, Denies discharge, Denies dry eyes, Denies floaters, Denies irritation, Denies itchy eyes, Denies loss of vision, Denies pain, Denies requires corrective lenses, Denies sensitivity to light, Denies other Ears, Nose, Mouth, and Throat: Denies abnormal hearing, Denies bleeding gums, Denies bad breath, Denies change in voice, Denies dental pain, Denies difficulty swallowing, Denies dizziness, Denies dry mouth, Denies ear discharge , Denies ear pain, Denies facial pain, Denies headache(s), Denies hearing loss, Denies hoarseness, Denies lip swelling, Denies nosebleed, Denies mouth lesions, Denies mouth pain, Denies nasal congestion, Denies nasal discharge, Denies nasal obstruction, Denies nasal trauma, Denies neck lump, Denies neck pain, Denies nose pain, Denies pain with swallowing, Denies poor balance, Denies post nasal drip, Denies ringing in the ears, Denies sinus pain, Denies sinus pressure , Denies sore throat, Denies throat swelling, Denies tongue swelling, Denies other Cardiovascular: Denies chest pain, Denies chest pain at rest, Denies chest pain with activity, Denies excessive sweating, Denies fainting, Denies fast heart rate, Denies foot swelling, Denies generalized swelling, Denies irregular heart rhythm, Denies leg pain with activity, Denies leg sores, Denies leg swelling, Denies lightheadedness, Denies radiating jaw, neck or arm pain, Denies rapid, pounding, or irregular heartbeat, Denies shortness of breath, Denies shortness of breath with activity, Denies shortness of breath when lying down, Denies shortness of breath causing sudden awakening, Denies slow heart rate, Denies other Respiratory: Reports cough, Reports shortness of breath with activity, Denies change in phlegm color, Denies chest congestion, Denies coughing up blood, Denies excessive phlegm production, Denies pain on inspiration, Denies pain with cough, Denies shortness of breath, Denies snoring, Denies stridor, Denies wheezing, Denies other Gastrointestinal: Denies abdominal pain, Denies belching, Denies black, tarry stools, Denies bloating, Denies bright, red blood in stools, Denies change in bowel habits, Denies constant urge to pass stool, Denies change in stools, Denies coffee ground vomit, Denies constipation, Denies cramping, Denies difficulty swallowing, Denies excessive passing of gas, Denies feeling full early, Denies heartburn, Denies incontinent of stools, Denies loose stools, Denies nausea, Denies pain with swallowing, Denies vomiting, Denies vomiting blood, Denies other Genitourinary: Denies blood in semen, Denies blood in urine, Denies decreased urination, Denies difficulty urinating, Denies difficulty with ejaculations, Denies erectile dysfunction, Denies genital lesions, Denies genital pain, Denies painful urination, Denies side pain, Denies frequent nighttime urination , Denies painful ejaculations, Denies penile discharge, Denies scrotal swelling , Denies testicle lump, Denies testicle pain, Denies urinary frequency, Denies urinary hesitancy, Denies urinary incontinence, Denies urinary urgency, Denies other Neurologic: Denies abnormal hearing, Denies abnormal movements, Denies abnormal speech, Denies abnormal walking, Denies behavioral changes, Denies burning sensations, Denies confusion, Denies dizziness, Denies fainting, Denies frequent falls, Denies headache(s), Denies lack of coordination, Denies localized weakness, Denies loss of vision, Denies memory loss, Denies numbness, Denies other visual disturbances, Denies radiating pain, Denies restless legs, Denies convulsions, Denies seizure-like activity, Denies sensory deficit, Denies tingling, Denies tingling/numbness/burning sensations, Denies tremor(s), Denies unsteadiness, Denies weakness, Denies other Psychiatric: Reports difficulty concentrating, Reports paranoia, Reports other ( Agitation, aggressiveness), Denies abnormal sleep pattern, Denies anxiety, Denies behavioral changes, Denies change in appetite, Denies change in sex drive , Denies confusion, Denies depression, Denies hearing things others do not hear , Denies hopelessness, Denies irritability, Denies lack of enjoyment, Denies memory loss, Denies mood swings, Denies panic attacks, Denies seeing things others do not see, Denies sensing things others do not sense, Denies tactile hallucinations, Denies thoughts of hurting/killing others, Denies thoughts of hurting/killing yourself PMF - History History 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, [employer]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 - Medical History Medical History: Medical History (Last Reviewed 08/03/18 @ 08:37 by Amanda Jordan MD) Coronary artery disease Depression Hepatitis C History not obtained - Surgical History Surgical History: Surgical History (Last Updated 08/03/18 @ 08:38 by Amanda Jordan MD) No history of previous surgery - Family History Family History: Family History (Last Reviewed 07/12/18 @ 10:50 by Paulo Hensley MD) Other No pertinent family history - Tobacco History Second Hand Smoke Exposure: No Smoking Status: Former smoker Tobacco Type: Cigarettes - Alcohol History How Often Do You Have a Drink Containing Alcohol: Monthly or less - Substance Use History Substance History: Past History - Immunization History Tetanus Immunization: Unsure Medications and Allergies Active Medications: Active Medications Acetaminophen (Tylenol) 650 mg PO Q4H PRN PRN Reason: fever/headache/pain Al Hydroxide/Mg Hydroxide (Milk Of Magnesia Liq) 30 ml PO Q12H PRN PRN Reason: Mild Constipation Albuterol (Albuterol Neb (Prn)) 1.25 mg NEB Q2HR NEB PRN PRN Reason: SHORTNESS OF BREATH Albuterol (Duoneb Neb (Shirlene)) 1 ampul NEB Q6HR WHILE AWAKE NEB [facility] Last Admin: 08/06/18 14:09 Dose: 1 ampul Amlodipine Besylate (Norvasc) 10 mg PO DAILY [facility] Last Admin: 08/06/18 09:54 Dose: 10 mg Bisacodyl (Dulcolax Supp) 10 mg RECTAL DAILY PRN PRN Reason: SEVERE CONSITIPATION Famotidine (Pepcid) 20 mg PO BID [facility] Last Admin: 08/06/18 09:54 Dose: 20 mg Haloperidol Lactate (Haldol Inj) 2 mg IV.PUSH Q6H PRN PRN Reason: AGITATION AND/OR HALLUCINATION Haloperidol Lactate (Haldol Inj) 5 mg IM Q8H PRN PRN Reason: SEVERE AGITATION Heparin Sodium (Porcine) (Heparin Inj) 5,000 units SQ Q12H [facility] Last Admin: 08/06/18 05:47 Dose: Not Given Azithromycin 500 mg/ Sodium (Chloride) 250 mls @ 250 mls/hr IV.SIG Q24H [facility] Last Admin: 08/06/18 09:34 Dose: Not Given Piperacillin/Tazobactam/Dextrose (Zosyn 4.5 Gm Premix) 4.5 gm in 100 mls @ 200 mls/hr IV.SIG Q6H [facility] Last Admin: 08/06/18 13:08 Dose: 200 mls/hr Lactulose (Lactulose Liq) 30 ml PO DAILY PRN PRN Reason: SEVERE CONSITIPATION Ondansetron HCl (Zofran Inj) 4 mg IV.PUSH Q6H PRN PRN Reason: NAUSEA OR VOMITING Quetiapine Fumarate (Seroquel) 25 mg PO BID [facility] Senna/Docusate Sodium (Stacie-Colace) 1 tab PO BID [facility] Last Admin: 08/06/18 09:53 Dose: Not Given Sennosides (Senokot) 17.2 mg PO Q12H PRN PRN Reason: Moderate Constipation Sodium Chloride (Ns Flush) 2 ml IV.FLUSH BID [facility] Last Admin: 08/06/18 12:34 Dose: Not Given Sodium Chloride (Ns Flush) 2 ml IV.FLUSH PRN PRN PRN Reason: FLUSH AFTER USING IV ACCESS Allergies Allergy/AdvReac Type Severity Reaction Status Date / Time penicillin G Allergy Unknown UNKNOWN Verified 08/03/18 07:53 Home Medications Medication Instructions Recorded Confirmed Type duloxetine 60 mg PO DAILY 03/20/18 08/03/18 History gabapentin 300 mg PO TID 03/20/18 08/03/18 History metoprolol tartrate 50 mg PO BID 03/20/18 08/03/18 History omeprazole 40 mg PO DAILY 03/20/18 08/03/18 History ranitidine HCl [Zantac] 150 mg PO BID 03/20/18 08/03/18 History tizanidine [Zanaflex] 2 mg PO TID PRN 03/20/18 08/03/18 History amlodipine 10 mg PO DAILY 08/03/18 08/03/18 History buprenorphine-naloxone [Suboxone] 1 film SUBLINGUAL Q24H 08/03/18 08/03/18 History diazepam 10 mg PO BID PRN 08/03/18 08/03/18 History oxybutynin chloride 5 mg PO TID 08/03/18 08/03/18 History tizanidine 2 mg PO Q6-8H PRN 08/03/18 08/03/18 History Exam Vital signs: Vital Signs 08/05/18 15:00 08/05/18 16:00 08/05/18 17:00 Temperature 98.3 F Pulse Rate 78 78 68 Respiratory Rate 16 Blood Pressure 104/51 L Pulse Oximetry 95 08/05/18 18:00 08/05/18 19:00 08/05/18 20:00 Temperature 98.1 F Pulse Rate 72 73 66 Respiratory Rate 16 Blood Pressure 112/67 Pulse Oximetry 94 L 08/05/18 20:28 08/05/18 20:30 08/05/18 22:00 Temperature Pulse Rate 70 84 Respiratory Rate 22 Blood Pressure Pulse Oximetry 92 L 08/05/18 23:00 08/06/18 00:00 08/06/18 01:00 Temperature 98.0 F Pulse Rate 76 73 78 Respiratory Rate 18 Blood Pressure 121/65 Pulse Oximetry 92 L 08/06/18 02:00 08/06/18 03:00 08/06/18 04:00 Temperature Pulse Rate 68 72 64 Respiratory Rate Blood Pressure Pulse Oximetry 08/06/18 05:00 08/06/18 08:00 08/06/18 08:57 Temperature 97.6 F Pulse Rate 64 70 64 Respiratory Rate 18 14 Blood Pressure 121/75 Pulse Oximetry 91 L 96 08/06/18 12:33 08/06/18 14:09 Temperature 98 F Pulse Rate 16 L 71 Respiratory Rate 16 16 Blood Pressure 123/72 Pulse Oximetry 98 Intake & Output 08/05/18 08/06/18 08/06/18 18:59 06:59 18:59 Intake Total 1020 / 1020 340 / 340 Balance 1020 / 1020 340 / 340 Weight 88 kg Intake: IV 300 / 300 100 / 100 Zosyn 4.5 GM Premix 4.5 gm In 300 / 300 100 / 100 100 ml @ 200 mls/hr IV.SIG Q6H [facility] Rx#:[id number] Oral 720 / 720 240 / 240 Other: # Voids 3 # Incontinent Voids 3 Date of Last Bowel Movement 08/05/18 08/05/18 08/06/18 # Bowel Movements 1 Mental Status Examination Appearance: Dirty, Disheveled Consciousness: Alert Orientation: x4 Speech: Unremarkable Language: Adequate Fund of Knowledge: Adequate Memory: Unremarkable Mood: Oppositional Affect: Irritable Thought Process & Associations: Intact, Goal directed Thought Content: Bizarre thinking, Delusional Hallucination Type: None Delusion Type: Bizarre, Paranoid Suicidal Ideation: No Suicidal Plan: No Suicidal Intention: No Homicidal Ideation: No Homicidal Plan: No Homicidal Intention: No Insight: Poor Judgment: Poor Assessment and Plan - Assessment (1) Unspecified psychosis Code(s): F29 - Unspecified psychosis not due to a substance or known physiological condition Status: Acute - Plan Plan: On psychiatric evaluation today the patient presents irritable, superficially cooperative, restrained in 4 points. The patient has a persistent, encapsulated , quite fixed paranoid delusion of being kidnapped and harmed by nurses "and those people"secondary to this he has been quite agitated and also aggressive in the medical floor. Apparently this paranoia has been increased in intensity and frequency in the last 2 days. Patient had to be medicated with Haldol 2 mg IV and physically restrained in order to calm down. Patient apparently does not have any previous psychiatric history, no pre-suicide attempts, no previous psychiatric hospitalizations. Given his level of psychosis and agitation the patient has elevated risk of danger to self, will be admitted in psychiatry for stabilization and safety. I will Mcmullen act the patient. No collateral information available at this moment. Will order Haldol 5 mg IM every 8 hours as needed aggressive behavior and agitation. Will order quetiapine 25 mg twice daily for behavioral dysregulation. Discontinue medication if QTC is over 460. QTC now is 429. Transfer to med psych once medically appropriate. Patient widely discussed with primary medical team and nursing charge. Support, motivation, psych education provided. Justification for Continued Inpatient Stay: To be admitted in med psych unit.
--- NOTE | 2018-08-06 14:53 | CT ---
EXAM DATE: 08/06/2018 2:48 PM EST AGE/SEX: 73 years / Male INDICATIONS: Altered mental status. CLINICAL DATA: This is the patient's initial encounter. Patient reports that signs and symptoms have been present for 1 day and indicates a pain score of 0/10. MEDICAL/SURGICAL HISTORY: Hepatitis C. Encephalopathy. None. RADIATION DOSE: 35.70 CTDI (mGy) COMPAR[place]: [facility] [place], 07/[place]. . TECHNIQUE: CT of the head without contrast. Using automated exposure control and adjustment of the mA and/or kV according to patient size, radiation dose was kept as low as reasonably achievable to ob tain optimal diagnostic quality images. DICOM format image data is available electronically for revi ew and comparison. FINDINGS: Cerebrum: The ventricles are normal for age. No evidence of midline shift, mass lesion, hemorrhage or acute infarction. There is an old area of cortical infarct in the right basal ganglia. This is sta ble compared to previous dated 07/12/2018. No extraaxial fluid collections are seen. Posterior Fossa: The cerebellum and brainstem are intact. The 4th ventricle is midline. The cerebe llopontine angle is unremarkable. Extracranial: The visualized portion of the orbits is intact. Skull: The calvaria is intact. No evidence of skull fracture. CONCLUSION: 1. No acute intracranial findings identified. 2. 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 Electronically signed by: Mario Nolasco MD Board Certified Radiologist 08/06/2018 2:51 PM EST
[2018-08-06] MEDS ORDERED: Haloperidol Inj 5 MG/ML Ampul IV.PUSH PRN (15:00)
[2018-08-06] MEDS: QUEtiapine 25 MG Tablet PO SCH ×2 (16:32→22:46)
[2018-08-06 17:45] LABS: Baso % (Auto) 0.7 % (0.0-2.0); Eos # (Auto) 0.1 th/mm3 (0.0-0.4); Eos % (Auto) 3.4 % (0.0-4.0); Hematocrit 40.2 % (39.0-51.0); Hemoglobin 13.3 gm/dL (13.0-17.0); Lymph # (Auto) 0.8 th/mm3 (1.0-4.8); Lymph % (Auto) 28.9 % (9.0-44.0); Mean Corpuscular HGB Conc 33.1 % (32.0-36.0); Mean Corpuscular Hemoglobin 30.4 pg (27.0-34.0); Mean Corpuscular Volume 91.6 fL (80.0-100.0); Mean Platelet Volume 8.8 fL (7.0-11.0); Mono # (Auto) 0.2 th/mm3 (0.0-0.9); Neut # (Auto) 1.6 th/mm3 (1.8-7.7); Platelet Count 141 th/mm3 (150-450); Red Blood Count 4.39 mil/mm3 (4.50-5.90); Red Cell Distribution Width 13.6 % (11.6-17.2); White Blood Count 2.7 th/mm3 (4.0-11.0)
[2018-08-06 18:09] LABS: Alanine Aminotransferase 40 U/L (12-78); Albumin 3.3 g/dL (3.4-5.0); Anion Gap 7 meq/L (5-15); Aspartate Aminotransferase 51 U/L (15-37); Blood Urea Nitrogen 9 mg/dL (7-18); Calcium 8.4 mg/dL (8.5-10.1); Carbon Dioxide 27.6 meq/L (21.0-32.0); Chloride 108 meq/L (98-107); Glomerular Filtration Rate 56 mL/min (>89); Glucose,Random 118 mg/dL (74-106); Potassium 3.7 meq/L (3.5-5.1); Sodium 143 meq/L (136-145)
[2018-08-06 18:12] LABS: Alkaline Phosphatase 96 U/L (45-117); Total Protein 8.3 g/dL (6.4-8.2)
--- NOTE | 2018-08-06 18:30 | P.PNPL ---
Subjective Interval history: 73 YOWM with COPD , patchy lung infilterates Mild sob No Fever no CP Feels weak Confused, " I was kidnapped and brought here" Physical Exam Vital signs: Vital Signs 08/05/18 19:00 08/05/18 20:00 08/05/18 20:28 Temperature 98.1 F Pulse Rate 73 66 70 Respiratory Rate 16 22 Blood Pressure 112/67 Pulse Oximetry 94 L 08/05/18 20:30 08/05/18 22:00 08/05/18 23:00 Temperature Pulse Rate 84 76 Respiratory Rate Blood Pressure Pulse Oximetry 92 L 08/06/18 00:00 08/06/18 01:00 08/06/18 02:00 Temperature 98.0 F Pulse Rate 73 78 68 Respiratory Rate 18 Blood Pressure 121/65 Pulse Oximetry 92 L 08/06/18 03:00 08/06/18 04:00 08/06/18 05:00 Temperature Pulse Rate 72 64 64 Respiratory Rate Blood Pressure Pulse Oximetry 08/06/18 08:00 08/06/18 08:57 08/06/18 12:33 Temperature 97.6 F 98 F Pulse Rate 70 64 16 L Respiratory Rate 18 14 16 Blood Pressure 121/75 123/72 Pulse Oximetry 91 L 96 98 08/06/18 14:09 08/06/18 16:30 Temperature 97.9 F Pulse Rate 71 64 Respiratory Rate 16 16 Blood Pressure 121/68 Pulse Oximetry 97 Intake & Output 08/05/18 08/06/18 08/06/18 18:59 06:59 18:59 Intake Total 1020 / 1020 340 / 340 Balance 1020 / 1020 340 / 340 Weight 88 kg Intake: IV 300 / 300 100 / 100 Zosyn 4.5 GM Premix 4.5 gm In 300 / 300 100 / 100 100 ml @ 200 mls/hr IV.SIG Q6H [facility] Rx#:[id number] Oral 720 / 720 240 / 240 Other: # Voids 3 # Incontinent Voids 3 Date of Last Bowel Movement 08/05/18 08/05/18 08/06/18 # Bowel Movements 1 GENERAL: Elderly WM, NAD SKIN: Warm and dry. HEAD: Normocephalic. EYES: No scleral icterus. No injection or drainage. NECK: Supple, trachea midline. No JVD or lymphadenopathy. CARDIOVASCULAR: Regular rate and rhythm without murmurs, gallops, or rubs. RESPIRATORY: Breath sounds equal bilaterally. No accessory muscle use. GASTROINTESTINAL: Abdomen soft, non-tender, nondistended. MUSCULOSKELETAL: No cyanosis, or edema. BACK: Nontender without obvious deformity. No CVA tenderness. - Urinary Catheter Management Condom Cath placed during this visit: no Assessment and Plan - Plan IMPRESSION: 1 . Bilateral patchy pneumonia. 2. Chronic obstructive pulmonary disease. 3. Nicotine use. 4. History of alcohol use. 5. History of hepatitis C. 6. Chronic pain. PLAN: Aerosol nebs Supplement 02 with NC Cont Abx Zithro and Zosyn SQ Heparin Famotidine 20 mg bid. Stable from Pulm standpoint Available prn over weekend.
[2018-08-07] MEDS: Piperacil/Tazo 4.5 GM Premix 4.5 GM/100 ML BAG IV.SIG SCH ×5 (04:00→23:25)
[2018-08-07] MEDS: Azithromycin Inj 500 MG in Sodium Chlor 0.9% Inj 250 ML IV.SIG SCH (06:33)
[2018-08-07] MEDS: Heparin - SQ 10,000 UNITS/ML Vial SQ SCH ×2 (06:33→17:26)
[2018-08-07 08:31] LABS: Baso % (Auto) 0.6 % (0.0-2.0); Eos # (Auto) 0.2 th/mm3 (0.0-0.4); Eos % (Auto) 4.8 % (0.0-4.0); Hematocrit 40.7 % (39.0-51.0); Hemoglobin 13.5 gm/dL (13.0-17.0); Lymph # (Auto) 0.8 th/mm3 (1.0-4.8); Lymph % (Auto) 20.1 % (9.0-44.0); Mean Corpuscular HGB Conc 33.3 % (32.0-36.0); Mean Corpuscular Hemoglobin 30.5 pg (27.0-34.0); Mean Corpuscular Volume 91.5 fL (80.0-100.0); Mean Platelet Volume 8.9 fL (7.0-11.0); Mono # (Auto) 0.4 th/mm3 (0.0-0.9); Mono % (Auto) 9.3 % (0.0-8.0); Neut # (Auto) 2.5 th/mm3 (1.8-7.7); Neut % (Auto) 65.2 % (16.0-70.0); Platelet Count 134 th/mm3 (150-450); Red Blood Count 4.44 mil/mm3 (4.50-5.90); Red Cell Distribution Width 13.8 % (11.6-17.2); White Blood Count 3.8 th/mm3 (4.0-11.0)
[2018-08-07] MEDS: Famotidine 20 MG Tablet PO SCH ×2 (08:48→20:21)
[2018-08-07] MEDS: Senna/Docusate Sodium 8.6/50 MG Tablet PO SCH ×2 (08:48→20:21)
[2018-08-07] MEDS: QUEtiapine 25 MG Tablet PO SCH ×2 (08:48→20:16)
[2018-08-07] MEDS: amLODIPine 10 MG Tablet PO SCH (08:48)
[2018-08-07 09:09] LABS: Carbon Dioxide 24.3 meq/L (21.0-32.0); Potassium 3.3 meq/L (3.5-5.1)
[2018-08-07 09:17] LABS: Calcium 8.7 mg/dL (8.5-10.1)
[2018-08-07 09:29] LABS: Platelet Morphology Normal (Normal)
--- NOTE | 2018-08-07 16:46 | P.PNIM ---
Subjective Interval history: The patient was seen earlier today at noon. He is in restraints he is agitated on and off however does not appear agitated as this time. He was nauseated in the morning nausea resolved. No fever or chills. He is not coughing. He is noted requiring 2 L by nasal cannula as he was desaturating. Still with some cough. Physical Exam Vital signs: Vital Signs 08/06/18 20:00 08/07/18 00:00 08/07/18 08:00 Temperature 97.9 F Pulse Rate 66 82 62 Respiratory Rate 20 18 24 Blood Pressure 136/79 141/85 H 125/72 Pulse Oximetry 94 L 97 92 L 08/07/18 12:00 08/07/18 13:00 08/07/18 13:12 Temperature 98.4 F Pulse Rate 83 78 67 Respiratory Rate 24 16 Blood Pressure 138/74 Pulse Oximetry 94 L 08/07/18 13:15 08/07/18 13:24 08/07/18 15:00 Temperature Pulse Rate 80 67 Respiratory Rate Blood Pressure Pulse Oximetry 94 L 08/07/18 15:26 08/07/18 15:32 Temperature 97.7 F Pulse Rate 66 71 Respiratory Rate 20 Blood Pressure 118/80 Pulse Oximetry 91 L Intake & Output 08/06/18 08/07/18 08/07/18 18:59 06:59 18:59 Intake Total 480 / 480 740 / 740 450 / 450 Output Total 625 / 625 Balance -145 / -145 740 / 740 450 / 450 Weight 88 kg Intake: IV 300 / 300 450 / 450 Azithromycin Inj 500 MG In NS 250 / 250 Inj 250 ML @ 250 mls/hr IV.SIG Q24H [facility] Rx#:[id number] Zosyn 4.5 GM Premix 4.5 gm In 300 / 300 200 / 200 100 ml @ 200 mls/hr IV.SIG Q6H [facility] Rx#:[id number] Oral 480 / 480 440 / 440 Output: Urine 625 / 625 Other: # Voids 4 # Incontinent Voids 4 Date of Last Bowel Movement 08/06/18 08/06/18 08/06/18 Narrative: GENERAL: Patient is in bed appears in not acute distress. However he is noted agitated on and off at this time he is in restraints SKIN: Warm and dry. HEAD: Normocephalic. EYES: No scleral icterus. No injection or drainage. NECK: Supple, trachea midline. No JVD. CARDIOVASCULAR: Regular rate and rhythm without murmurs, gallops, or rubs. RESPIRATORY: Breath sounds equal bilaterally. No accessory muscle use. GASTROINTESTINAL: Abdomen soft, non-tender, nondistended. MUSCULOSKELETAL: No cyanosis, or edema. Urinary Catheter Management Condom: Cath placed during this visit: no Results Labs CBC & Chem 7: 08/07/18 06:29 08/07/18 06:29 Labs: Microbiology 08/03/18 05:45 Blood - Peripheral Aerobic Blood Culture - Preliminary No growth in 4 days 08/03/18 05:45 Blood - Peripheral Anaerobic Blood Culture - Preliminary No growth in 4 days 08/03/18 05:50 Blood - Peripheral Aerobic Blood Culture - Preliminary No growth in 4 days 08/03/18 05:50 Blood - Peripheral Anaerobic Blood Culture - Preliminary No growth in 4 days Assessment and Plan (1) Unspecified psychosis: Code(s): F29 - Unspecified psychosis not due to a substance or known physiological condition Status: Acute Plan Acute hypoxemic respiratory failure/ pneumonia off BiPaP- with oxygen via N/C as tolerates. Patient oxygen saturation is mentating well on nasal cannula. Cont duoneb treatment- continue with IV antibiotic and follow the cultures- consult pulmonary. = Continue treatment as per pulmonology. Expect this is exacerbated by pain meds. Patient reports being on narcotic pain meds but none can be found on E force. Suspect drug-seeking behavior. Nevertheless he is satting well on nasal canula Acute psychosis. The patient is noted agitated on and off. Placed in restraints. Receive Haldol. Consult psychiatry for evaluation CT scan head no acute stroke Plan to discharge to psychiatry when cleared medically Hypertension resume Amlodipine- hold Metoprolol for now. Possible history of overactive bladder. Will discontinue oxybutynin which is not appropriate for older males DVT prophylaxis with subq Heparin. Discussed Condition With: Patient, nurse Discharge plan discharge to psychiatry when cleared medically possible in 1 or 2 days. The patient is on IV antibiotics not clear by pulmonology and he is still requiring oxygen. _ (1) Unspecified psychosis Qualifiers: Psychosis type: Schizoaffective disorder type: Schizophrenia type:
[2018-08-08] MEDS: Heparin - SQ 10,000 UNITS/ML Vial SQ SCH ×2 (05:55→17:51)
[2018-08-08] MEDS: Azithromycin Inj 500 MG in Sodium Chlor 0.9% Inj 250 ML IV.SIG SCH ×2 (05:55→06:04)
[2018-08-08] MEDS: Piperacil/Tazo 4.5 GM Premix 4.5 GM/100 ML BAG IV.SIG SCH ×4 (05:55→23:34)
[2018-08-08 06:17] LABS: Baso % (Auto) 0.5 % (0.0-2.0); Eos # (Auto) 0.2 th/mm3 (0.0-0.4); Eos % (Auto) 5.5 % (0.0-4.0); Hematocrit 45.9 % (39.0-51.0); Hemoglobin 15.2 gm/dL (13.0-17.0); Lymph # (Auto) 1.2 th/mm3 (1.0-4.8); Lymph % (Auto) 26.1 % (9.0-44.0); Mean Corpuscular Hemoglobin 30.1 pg (27.0-34.0); Mean Corpuscular Volume 91.1 fL (80.0-100.0); Mean Platelet Volume 8.8 fL (7.0-11.0); Mono # (Auto) 0.4 th/mm3 (0.0-0.9); Mono % (Auto) 8.2 % (0.0-8.0); Neut # (Auto) 2.6 th/mm3 (1.8-7.7); Neut % (Auto) 59.7 % (16.0-70.0); Platelet Count 143 th/mm3 (150-450); Red Blood Count 5.04 mil/mm3 (4.50-5.90); Red Cell Distribution Width 13.6 % (11.6-17.2); White Blood Count 4.4 th/mm3 (4.0-11.0)
[2018-08-08 06:43] LABS: Calcium 8.8 mg/dL (8.5-10.1); Carbon Dioxide 26.9 meq/L (21.0-32.0); Potassium 3.3 meq/L (3.5-5.1)
[2018-08-08] MEDS: QUEtiapine 25 MG Tablet PO SCH ×2 (08:58→20:58)
[2018-08-08] MEDS: Senna/Docusate Sodium 8.6/50 MG Tablet PO SCH ×2 (08:58→20:58)
[2018-08-08] MEDS: Famotidine 20 MG Tablet PO SCH ×2 (08:58→20:58)
[2018-08-08] MEDS: amLODIPine 10 MG Tablet PO SCH (08:58)
--- NOTE | 2018-08-08 13:08 | P.PNIM ---
Subjective Interval history: Sattign well on room air. No cough fever or chills/ No n/v/d/ c. Eating fairly well. Less agitated, off restraints at this time. Flat affect, odd. Physical Exam Vital signs: Vital Signs 08/07/18 13:12 08/07/18 13:15 08/07/18 13:24 Temperature Pulse Rate 67 80 Respiratory Rate 16 Blood Pressure Pulse Oximetry 94 L 08/07/18 15:00 08/07/18 15:26 08/07/18 15:32 Temperature 97.7 F Pulse Rate 67 66 71 Respiratory Rate 20 Blood Pressure 118/80 Pulse Oximetry 91 L 08/07/18 17:00 08/07/18 17:33 08/07/18 19:00 Temperature Pulse Rate 69 78 72 Respiratory Rate Blood Pressure Pulse Oximetry 08/07/18 20:00 08/07/18 21:00 08/07/18 22:00 Temperature 98.5 F Pulse Rate 69 70 63 Respiratory Rate 18 Blood Pressure 124/78 Pulse Oximetry 96 08/07/18 23:00 08/07/18 23:49 08/08/18 00:00 Temperature 97.8 F Pulse Rate 58 L 71 70 Respiratory Rate 18 Blood Pressure 148/78 H Pulse Oximetry 96 08/08/18 01:00 08/08/18 02:00 08/08/18 03:00 Temperature Pulse Rate 54 L 61 64 Respiratory Rate Blood Pressure Pulse Oximetry 08/08/18 04:00 08/08/18 05:00 08/08/18 06:00 Temperature 97.8 F Pulse Rate 75 81 60 Respiratory Rate 18 Blood Pressure 146/86 H Pulse Oximetry 95 08/08/18 07:00 08/08/18 08:00 08/08/18 09:00 Temperature 97.5 F L Pulse Rate 79 77 72 Respiratory Rate 16 Blood Pressure 141/81 H Pulse Oximetry 90 L 08/08/18 10:00 08/08/18 11:00 08/08/18 12:00 Temperature 97.9 F Pulse Rate 78 74 74 Respiratory Rate 16 Blood Pressure 148/77 H Pulse Oximetry 91 L Intake & Output 08/07/18 08/08/18 08/08/18 18:59 06:59 18:59 Intake Total 1510 / 1510 440 / 440 350 / 350 Output Total 200 / 200 Balance 1310 / 1310 440 / 440 350 / 350 Weight 87.5 kg Intake: IV 550 / 550 200 / 200 350 / 350 Azithromycin Inj 500 MG In NS 250 / 250 250 / 250 Inj 250 ML @ 250 mls/hr IV.SIG Q24H COLT Rx#:[id number] Zosyn 4.5 GM Premix 4.5 gm In 300 / 300 200 / 200 100 / 100 100 ml @ 200 mls/hr IV.SIG Q6H COLT Rx#:[id number] Oral 960 / 960 240 / 240 Output: Urine Amount (Catheter) 200 / 200 Condom 200 / 200 Other: # Voids 4 2 Date of Last Bowel Movement 08/07/18 08/07/18 # Bowel Movements 3 Narrative: GENERAL: Patient is in bed appears in not acute distress. Less agitated, off restraints. SKIN: Warm and dry. HEAD: Normocephalic. EYES: No scleral icterus. No injection or drainage. NECK: Supple, trachea midline. No JVD. CARDIOVASCULAR: Regular rate and rhythm without murmurs, gallops, or rubs. RESPIRATORY: Breath sounds equal bilaterally. No accessory muscle use. Sattign well on room air. GASTROINTESTINAL: Abdomen soft, non-tender, nondistended. MUSCULOSKELETAL: No cyanosis, or edema. Urinary Catheter Management Condom: Cath placed during this visit: no Results Labs CBC & Chem 7: 08/08/18 04:41 08/08/18 04:41 Labs: Microbiology 08/03/18 05:45 Blood - Peripheral Aerobic Blood Culture - Final No growth in 5 days 08/03/18 05:45 Blood - Peripheral Anaerobic Blood Culture - Final No growth in 5 days 08/03/18 05:50 Blood - Peripheral Aerobic Blood Culture - Final No growth in 5 days 08/03/18 05:50 Blood - Peripheral Anaerobic Blood Culture - Final No growth in 5 days Assessment and Plan (1) Unspecified psychosis: Code(s): F29 - Unspecified psychosis not due to a substance or known physiological condition Status: Acute Plan Acute hypoxemic respiratory failure- resolved satting well on room air.Pneumonia resolving. Blood cx NTD. off BiPAP- with oxygen via N/C as tolerates. Patient oxygen saturation is mentating well on nasal cannula. Cont duoneb treatment- continue with IV antibiotic and follow the cultures- consult pulmonary. Abx changed to PO meds. = Continue treatment as per pulmonology. Expect this is exacerbated by pain meds. Patient reports being on narcotic pain meds but none can be found on E force. Suspect drug-seeking behavior. Nevertheless he is satting well on nasal canula Acute psychosis. The patient is noted agitated on and off. Placed in restraints. Haldol. Consult psychiatry for evaluation, a[preciate recs. Seen by psych who recommends admission to psych unit whemn cleared medically. The patient is cleared medically. Plan to DC for psych CT scan head no acute stroke Plan to discharge to psychiatry, patient is cleared medically Hypertension resume Amlodipine- hold Metoprolol for now. Possible history of overactive bladder. Will discontinue oxybutynin which is not appropriate for older males DVT prophylaxis with subq Heparin. Discussed Condition With: Patient, nurse Discharge cleared medically. patient is satting well on room air. Eating. Blood cx NTD, change abx to PO.DC to psych unit. _ (1) Unspecified psychosis Qualifiers: Psychosis type: Schizoaffective disorder type: Schizophrenia type:
--- NOTE | 2018-08-08 13:13 | P.DS ---
DS: Providers Date of admission: 08/03/18 06:07 Primary care physician: UNKNOWN Consults: 08/03/18 08:41 Consult to Pulmonology Routine Consulting Provider: Lisandro Rudolph Reason for Consultation: respiratory failure. Notified:: Office Spoke with:: samia Date Notified:: 08/03/18 Time Notified:: 08:50 Ordering Provider: CHELSEA 08/06/18 08:44 Consult to Psychiatry Routine Consulting Provider: Thomas Arzate Reason for Consultation: psychosis Notified:: Office Spoke with:: clari Date Notified:: 08/06/18 Time Notified:: 08:55 Ordering Provider: JASMEET Brief History from admission: patient is a 73 y/o male with history of hypertension, chronic smoker, who was brought to ER with shortness of breath and generalized weakness. patient was somewhat lethargic at the time of my evaluation and most of the information was obtained from ER documents. he says that he's had some sob for the past few days. has minimal cough and sputum production with no report of fever. he denies any pain. he was on BiPaP at the time of my evaluation. DS: Diagnosis Discharge Diagnosis (1) Unspecified psychosis: Status: Acute DS: Summary Acute hypoxemic respiratory failure- resolved satting well on room air. Pneumonia resolving. Blood cx NTD. off BiPAP- with oxygen via N/C as tolerates. Patient oxygen saturation is mentating well on nasal cannula. received duonebs, IV antibiotic, consult pulmonary. Abx changed to PO meds. = Continue treatment as per pulmonology. Expect this is exacerbated by pain meds. Patient reports being on narcotic pain meds but none can be found on E force. Suspect drug-seeking behavior. Nevertheless he is satting well, now on room air Acute psychosis. The patient is noted agitated on and off. Placed in restraints. Haldol. Consult psychiatry for evaluation, a[preciate recs. Seen by psych who recommends admission to psych unit whemn cleared medically. The patient is cleared medically. Plan to [place] for psych CT scan head no acute stroke Plan to discharge to psychiatry, patient is cleared medically Hypertension resume Amlodipine- hold Metoprolol for now. Possible history of overactive bladder. Will discontinue oxybutynin which is not appropriate for older males DVT prophylaxis with subq Heparin. Discussed Condition With: Patient, nurse Discharge cleared medically. patient is satting well on room air. Eating. Blood cx NTD, change abx to PO.DC to psych unit. Time Spent with Patient Total time spent providing and/or coordinating discharge services: > 30 min Exam Narrative Exam Narrative: GENERAL: Patient is in bed appears in not acute distress. Less agitated, off restraints. SKIN: Warm and dry. HEAD: Normocephalic. EYES: No scleral icterus. No injection or drainage. NECK: Supple, trachea midline. No JVD. CARDIOVASCULAR: Regular rate and rhythm without murmurs, gallops, or rubs. RESPIRATORY: Breath sounds equal bilaterally. No accessory muscle use. Sattign well on room air. GASTROINTESTINAL: Abdomen soft, non-tender, nondistended. MUSCULOSKELETAL: No cyanosis, or edema. Results Labs on day of discharge: Labs from last 24 hours 08/08/18 08/08/18 04:41 04:41 WBC 4.4 RBC 5.04 Hgb 15.2 Hct 45.9 MCV 91.1 MCH 30.1 MCHC 33.0 RDW 13.6 Plt Count 143 L MPV 8.8 Neut % (Auto) 59.7 Lymph % (Auto) 26.1 Gordon % (Auto) 8.2 H Eos % (Auto) 5.5 H Baso % (Auto) 0.5 Neut # (Auto) 2.6 Lymph # (Auto) 1.2 Gordon # (Auto) 0.4 Eos # (Auto) 0.2 Baso # (Auto) 0.0 WBC Differential . Differential Comment Auto diff final Sodium 142 Potassium 3.3 L Chloride 107 Carbon Dioxide 26.9 Anion Gap 8 BUN 11 Creatinine 1.06 Estimated GFR 69 L Random Glucose 82 Calcium 8.8 Impressions ITS Impressions Chest X-Ray 08/03/18 01:21 CONCLUSION: Hypoinflation with some minimal atelectatic changes laterally in the right base. No confluent infiltrate. Chest CTA 08/03/18 05:15 CONCLUSION: 1. Patchy airspace disease in both lung bases, left worse than right. Findings could represent early infiltrate, particularly on the left 2. No pulmonary embolus. 3. Atherosclerotic calcification of the coronary arteries. Head CT 08/06/18 13:28 CONCLUSION: 1. No acute intracranial findings identified. 2. 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 Discharge Plan Discharge Disposition Patient Disposition: 66 [facility] To [facility] Discharge Order Discharge Orders: Discharge Order (Routine); Ordered 08/08/18 Ordered By: Marni Escobedo Discharge Details Anticipated Discharge Date: 08/08/18 Discharge Comment: DC when arrangements are done Physicians Team Primary Care Provider: UNKNOWN, Attending Provider: Marni Escobedo Other Providers: Lisandro Rudolph ; Thomas Arzate Rxs /Orders / Referrals /Forms Prescriptions: New cefuroxime axetil 500 mg tablet 500 mg PO BID 10 Days Qty: 14 RF: 0 Continue duloxetine 60 mg Capsule,Delayed Release(Dr/Ec) 60 mg PO DAILY RF: 0 gabapentin 300 mg Capsule 300 mg PO TID RF: 0 metoprolol tartrate 25 mg Tablet 50 mg PO BID RF: 0 omeprazole 40 mg Capsule,Delayed Release(Dr/Ec) 40 mg PO DAILY RF: 0 ranitidine HCl [Zantac] 150 mg Tablet 150 mg PO BID RF: 0 tizanidine [Zanaflex] 2 mg Capsule 2 mg PO TID PRN (Reason: Acid Reflux) RF: 0 hydrocodone-acetaminophen [[place]] 5-325 mg Tablet 1 tab PO Q6H PRN (Reason: acute pain >4) Qty: 8 RF: 0 tizanidine 2 mg Tablet 2 mg PO Q6-8H PRN (Reason: Muscle Spasm) RF: 0 amlodipine 10 mg Tablet 10 mg PO DAILY RF: 0 diazepam 10 mg Tablet 10 mg PO BID PRN (Reason: Anxiety) RF: 0 oxybutynin chloride 5 mg Tablet 5 mg PO TID RF: 0 buprenorphine-naloxone [Suboxone] 4-1 mg Film 1 film SUBLINGUAL Q24H RF: 0 Referrals: UNKNOWN, [Primary Care Provider] - See Instructions Discharge Instructions Patient Printed Instructions: Cefuroxime (By mouth), How to Stop Smoking (DC), Altered Mental Status (GEN), Hypoxia (GEN), Pneumonia (DC) Status ED Status: Left Department Discharge Information Discharge Date/Time: 08/09/18 13:12
[2018-08-09] MEDS: Heparin - SQ 10,000 UNITS/ML Vial SQ SCH (05:46)
[2018-08-09] MEDS: Piperacil/Tazo 4.5 GM Premix 4.5 GM/100 ML BAG IV.SIG SCH ×2 (05:46→12:59)
[2018-08-09 05:51] LABS: Baso % (Auto) 0.9 % (0.0-2.0); Eos # (Auto) 0.2 th/mm3 (0.0-0.4); Eos % (Auto) 4.5 % (0.0-4.0); Hematocrit 44.1 % (39.0-51.0); Lymph # (Auto) 1.6 th/mm3 (1.0-4.8); Lymph % (Auto) 33.2 % (9.0-44.0); Mean Corpuscular Hemoglobin 31.1 pg (27.0-34.0); Mean Corpuscular Volume 91.5 fL (80.0-100.0); Mean Platelet Volume 8.5 fL (7.0-11.0); Mono # (Auto) 0.5 th/mm3 (0.0-0.9); Neut # (Auto) 2.5 th/mm3 (1.8-7.7); Neut % (Auto) 51.4 % (16.0-70.0); Platelet Count 140 th/mm3 (150-450); Red Blood Count 4.82 mil/mm3 (4.50-5.90); White Blood Count 4.9 th/mm3 (4.0-11.0)
[2018-08-09 06:18] LABS: Calcium 8.7 mg/dL (8.5-10.1); Carbon Dioxide 27.5 meq/L (21.0-32.0); Potassium 3.4 meq/L (3.5-5.1)
[2018-08-09] MEDS: Azithromycin Inj 500 MG in Sodium Chlor 0.9% Inj 250 ML IV.SIG SCH (06:20)
[2018-08-09] MEDS: QUEtiapine 25 MG Tablet PO SCH (09:02)
[2018-08-09] MEDS: Famotidine 20 MG Tablet PO SCH (09:02)
[2018-08-09] MEDS: amLODIPine 10 MG Tablet PO SCH (09:02)
[2018-08-09] MEDS: Senna/Docusate Sodium 8.6/50 MG Tablet PO SCH (09:03)
[2018-08-09 10:26] VITALS: RESP 20
[2018-08-09 11:56] VITALS: BP 119/79; PULSE 70; TEMP 98; O2SAT 97
[2018-08-09] MEDS ORDERED: BUPRENORPHINE NALOXONE SL SCH (14:15)
== END 2018-08-09 13:12 | DRG 193 ==
LOC: NEPE 01:05 → NEDA 06:07 → HCIS 17:47
PROVIDERS: ADMIT Hospitalist; ATTEND Hospitalist
CPT/HCPCS: 36600; 70450; 71010; 71045; 71275; 76937; 80048; 80053; 80307; 81001; 82140; 82550; 82552; 82805; 83690; 83735; 84484; 85025; 87040; 87086; 87106; 90774; 90784; 93005; 94002; 94640; 94656; 94664; 94665; 96374; 97110; 97163; 97530; 99291; C8952; J0456; J1630; J1644; J2060; J2310; J2543; J3370; J7050; Q9967

== ENCOUNTER 2018-08-09 11:48 | Inpatient (IN) ==
[2018-08-09] MEDS ORDERED: Bisacodyl 10 MG Supp RECTAL PRN (12:48)
[2018-08-09] MEDS ORDERED: Aluminum/Magnesium/Simethacone Susp 30 ML UDC PO PRN (12:48)
--- NOTE | 2018-08-09 12:56 | P.HPPSY ---
Provisional Diagnosis Admission Date: August 09, 2018 [place] I.: Unspecified psychosis Competence Certification of Person's Competence To Provide Express and Informed Consent I have personally examined Juma Vee III, a person being served at [facility] on, August 09, 2018 1252. Express and informed consent means consent voluntarily given in writing, by a competent person, after sufficient explanation and disclosure of the subject matter involved to enable the person to make a knowing and willful decision without any element of force, fraud, deceit, duress, or other form of constraint or coercion. This person is 18 years of age or older, is not now known to be incompetent to consent to treatment with a guardian advocate, and does not have a health care surrogate or proxy currently making medical treatment decisions. I have found this person to be one of the following: [] Competent to provide express and informed consent, as defined above, for voluntary admission to this facility and is competent to provide express and informed consent for treatment. He/she has the consistent capacity to make well reasoned, willful, and knowing decisions concerning his or her medical or mental health treatment. The person fully and consistently understands the purpose of the admission for examination/placement and is fully capable of personally exercising all rights [place] [] Incompetent to provide express and informed consent to voluntary admission, and this is incompetent to provide express and informed consent to treatment. The person must be transferred to involuntary status and a petition for a guardian advocate filed with the Circuit Court. [x] Refusing to provide express and informed consent to voluntary admission but is competent to provide express and informed consent for treatment. The person must be discharged or transferred to involuntary status. Form shall be completed within 24 hours of a person's arrival at the receiving facility and filed in the clinical record of each person: 1. Admitted on a voluntary basis 2. Permitted to provide express and informed consent to his/her own treatment 3. Allowed to transfer from involuntary to voluntary status 4. Prior to permitting a person to consent to his or her own treatment after having been previously found incompetent to consent to treatment. History of Present Illness Capacity: Has capacity History of Present Illness: 08/06/2018 The patient is a 73-year-old man, domiciled in [facility], , father of a 40-year-old daughter, supported by Social Security, he denies previous psychiatric history, denies previous suicidal attempts, denies previous psychiatric hospitalizations, with medical history of hypertension, chronic smoker, who was brought to ER with shortness of breath and generalized weakness. patient was somewhat lethargic at the time of initial evaluation and most of the information was obtained from ER documents. he says that he's had some sob for the past few days. has minimal cough and sputum production with no report of fever. he denies any pain. he was on BiPaP at the time of the evaluation. Consulted to psychiatry due to aggressive behavior and agitation in the medical floor. On my psychiatric evaluation today the patient is restrained in 4 points, he is calm, superficially cooperative. The patient is very paranoid. As per nursing charge the patient has been paranoid for at least 24 hours. The paranoia consists are not stating that nurses "and people "have been trying to kill him and want to kidnap him". He says that for the last 2 days he has been seeing people coming inside his room, talking about him in the house, and he is very sure that they want his money. The patient seems to be very distressed by it. He has been very agitated and verbally hostile secondary to this paranoia. Had to be restrained in 4 points to calm him down. To decrease his paranoia and agitation he also had to be medicated with Haldol 2 mg. Apparently his paranoia increases with the presence of people around him. Probably paranoia he also has augmented with distress and underlying medical conditions. Other than this the patient reports to be in a good mood, he denies symptoms of depression, he denies anxiety, denies suicidal and homicidal ideation, he denies visual and auditory hallucinations. He is fully oriented x3, he is attentive, able to be verbally directed during my evaluation. 08/09/2018 10:30 AM: Patient was seen today for psychiatric reevaluation. Patient calm, cooperative, but continues to be disorganized and paranoid. The patient tells me that he has been very concerned because his mother is admitted here in the medical floor. He says that he has been hearing her crying close to here I dont know who is torturing my mother. The patient reports to be depressed due to this reason. He also reports that he continues to mistrust nurses and staff in the hospital. He has a very poor insight of perceptual disturbances. He is fully oriented x3. There is no attention deficit, there is no fluctuation of consciousness at the moment. As per nurse in charge, the patient has been doing a little bit better, but continues to be paranoid. There is no agitation, no aggressive behavior, he was able to be released from restraints. PPHx: No previous psychiatric history, no pre-suicide attempts, no previous psychiatric hospitalization PMHx: Hypertension Substance Hx: Denies the use of alcohol and illegal drug Family Hx: No family psychiatric history Social Hx: Patient is domiciled in [facility], , he has a 40-year- old daughter, unemployed, supported by Social Security - Inpatient Certification I certify that the inpatient services were ordered in accordance with Medicare regulations governing the order. This includes certification that hospital inpatient services are reasonable and necessary and in the case of services not specified as inpatient-only under 42 CFR 419.22(n), that they are appropriately provided as inpatient services in accordance to with the 2-midnight benchmark under 43 CFR 412.3(e) I certify that inpatient psychiatric hospital services are medically necessary. Evaluation and treatment and/or diagnostic testing are expected to improve the patient's condition. The patient needs on a daily basis, active treatment furnished directly by or requiring the supervision of inpatient psychiatric facility personnel. Estimated Total Length of Stay (Days): 7 Plans for Post Hospital Care: Home Review of Systems All other systems reviewed negative except as stated in HPI Constitutional: Denies anorexia, Denies body ache(s), Denies chills, Denies daytime sleepiness, Denies excessive sweating, Denies fatigue, Denies fever(s), Denies headache(s), Denies increased appetite, Denies lack of energy, Denies malaise, Denies night sweats, Denies weakness, Denies weight gain, Denies weight loss, Denies other Eyes: Denies blind spots, Denies blurry vision, Denies bulging eyes, Denies change in vision, Denies double vision, Denies discharge, Denies dry eyes, Denies floaters, Denies irritation, Denies itchy eyes, Denies loss of vision, Denies pain, Denies requires corrective lenses, Denies sensitivity to light, Denies other Ears, Nose, Mouth, and Throat: Denies abnormal hearing, Denies bleeding gums, Denies bad breath, Denies change in voice, Denies dental pain, Denies difficulty swallowing, Denies dizziness, Denies dry mouth, Denies ear discharge , Denies ear pain, Denies facial pain, Denies headache(s), Denies hearing loss, Denies hoarseness, Denies lip swelling, Denies nosebleed, Denies mouth lesions, Denies mouth pain, Denies nasal congestion, Denies nasal discharge, Denies nasal obstruction, Denies nasal trauma, Denies neck lump, Denies neck pain, Denies nose pain, Denies pain with swallowing, Denies poor balance, Denies post nasal drip, Denies ringing in the ears, Denies sinus pain, Denies sinus pressure , Denies sore throat, Denies throat swelling, Denies tongue swelling, Denies other Cardiovascular: Denies chest pain, Denies chest pain at rest, Denies chest pain with activity, Denies excessive sweating, Denies fainting, Denies fast heart rate, Denies foot swelling, Denies generalized swelling, Denies irregular heart rhythm, Denies leg pain with activity, Denies leg sores, Denies leg swelling, Denies lightheadedness, Denies radiating jaw, neck or arm pain, Denies rapid, pounding, or irregular heartbeat, Denies shortness of breath, Denies shortness of breath with activity, Denies shortness of breath when lying down, Denies shortness of breath causing sudden awakening, Denies slow heart rate, Denies other Respiratory: Denies change in phlegm color, Denies chest congestion, Denies cough, Denies coughing up blood, Denies excessive phlegm production, Denies pain on inspiration, Denies pain with cough, Denies shortness of breath, Denies shortness of breath with activity, Denies snoring, Denies stridor, Denies wheezing, Denies other Gastrointestinal: Denies abdominal pain, Denies belching, Denies black, tarry stools, Denies bloating, Denies bright, red blood in stools, Denies change in bowel habits, Denies constant urge to pass stool, Denies change in stools, Denies coffee ground vomit, Denies constipation, Denies cramping, Denies difficulty swallowing, Denies excessive passing of gas, Denies feeling full early, Denies heartburn, Denies incontinent of stools, Denies loose stools, Denies nausea, Denies pain with swallowing, Denies vomiting, Denies vomiting blood, Denies other Genitourinary: Denies blood in semen, Denies blood in urine, Denies decreased urination, Denies difficulty urinating, Denies difficulty with ejaculations, Denies erectile dysfunction, Denies genital lesions, Denies genital pain, Denies painful urination, Denies side pain, Denies frequent nighttime urination , Denies painful ejaculations, Denies penile discharge, Denies scrotal swelling , Denies testicle lump, Denies testicle pain, Denies urinary frequency, Denies urinary hesitancy, Denies urinary incontinence, Denies urinary urgency, Denies other Musculoskeletal: Denies abnormal walking, Denies back pain, Denies body aches, Denies decreased muscle mass, Denies deformity, Denies joint pain, Denies joint swelling, Denies limited joint movement, Denies loss of height, Denies muscle cramps, Denies muscle weakness, Denies neck pain, Denies numbness, Denies radiating pain into limb, Denies stiffness, Denies tingling, Denies other Skin/Breast: Denies acne, Denies bleeding lesions, Denies boil, Denies breast swelling, Denies breast skin changes, Denies breast pain, Denies breast lump, Denies change in breast shape, Denies change in hair, Denies change in skin color, Denies changing lesions, Denies dry skin, Denies excessive hair growth, Denies hair loss, Denies itching, Denies lesions, Denies nail changes, Denies new lesions, Denies nipple discharge, Denies non-healing lesions, Denies redness , Denies sensitivity to light, Denies rash, Denies skin pain, Denies skin ulcer , Denies sores, Denies stretch winters, Denies unusual bruising, Denies wounds, Denies yellowing of the skin, Denies other Neurologic: Denies abnormal hearing, Denies abnormal movements, Denies abnormal speech, Denies abnormal walking, Denies behavioral changes, Denies burning sensations, Denies confusion, Denies dizziness, Denies fainting, Denies frequent falls, Denies headache(s), Denies lack of coordination, Denies localized weakness, Denies loss of vision, Denies memory loss, Denies numbness, Denies other visual disturbances, Denies radiating pain, Denies restless legs, Denies convulsions, Denies seizure-like activity, Denies sensory deficit, Denies tingling, Denies tingling/numbness/burning sensations, Denies tremor(s), Denies unsteadiness, Denies weakness, Denies other Psychiatric: Reports paranoia, Denies abnormal sleep pattern, Denies anxiety, Denies behavioral changes, Denies change in appetite, Denies change in sex drive , Denies confusion, Denies depression, Denies difficulty concentrating, Denies hearing things others do not hear, Denies hopelessness, Denies irritability, Denies lack of enjoyment, Denies memory loss, Denies mood swings, Denies panic attacks, Denies seeing things others do not see, Denies sensing things others do not sense, Denies tactile hallucinations, Denies thoughts of hurting/killing others, Denies thoughts of hurting/killing yourself, Denies other PMFSH - History History 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, Manager Collection / EMT - Medical History Medical History: Medical History (Last Reviewed 08/03/18 @ 08:37 by Amanda Jordan MD) Coronary artery disease Depression Hepatitis C History not obtained - Surgical History Surgical History: Surgical History (Last Updated 08/03/18 @ 08:38 by Amanda Jordan MD) No history of previous surgery - Family History Family History: Family History (Last Reviewed 07/12/18 @ 10:50 by Paulo Hensley MD) Other No pertinent family history - Tobacco History Second Hand Smoke Exposure: No Smoking Status: Former smoker Tobacco Type: Cigarettes - Alcohol History How Often Do You Have a Drink Containing Alcohol: Monthly or less - Substance Use History Substance History: Past History Medications and Allergies Active Medications: Active Medications Hydrocodone Bitart/Acetaminophen ([place]ons 5/325) 1 tab PO Q6H PRN PRN Reason: acute pain >4 Al Hydrox/Mg Hydrox/Simethicone (Mag-Al Plus Susp Liq) 30 ml PO Q6H PRN PRN Reason: DYSPEPSIA Al Hydroxide/Mg Hydroxide (Milk Of Magnesia Liq) 30 ml PO Q12H PRN PRN Reason: Mild Constipation Amlodipine Besylate (Norvasc) 10 mg PO DAILY COLT Bisacodyl (Dulcolax Supp) 10 mg RECTAL DAILY PRN PRN Reason: SEVERE CONSITIPATION Cefuroxime Axetil (Ceftin) 500 mg PO BID COLT Diazepam (Valium) 10 mg PO BID PRN PRN Reason: Anxiety Duloxetine HCl (Cymbalta) 60 mg PO DAILY COLT Gabapentin (Neurontin) 300 mg PO TID COLT Lactulose (Lactulose Liq) 30 ml PO DAILY PRN PRN Reason: SEVERE CONSITIPATION Allergies Allergy/AdvReac Type Severity Reaction Status Date / Time penicillin G Allergy Unknown UNKNOWN Verified 08/03/18 07:53 Home Medications Medication Instructions Recorded Confirmed Type duloxetine 60 mg PO DAILY 03/20/18 08/03/18 History gabapentin 300 mg PO TID 03/20/18 08/03/18 History metoprolol tartrate 50 mg PO BID 03/20/18 08/03/18 History omeprazole 40 mg PO DAILY 03/20/18 08/03/18 History ranitidine HCl [Zantac] 150 mg PO BID 03/20/18 08/03/18 History tizanidine [Zanaflex] 2 mg PO TID PRN 03/20/18 08/03/18 History amlodipine 10 mg PO DAILY 08/03/18 08/03/18 History buprenorphine-naloxone [Suboxone] 1 film SUBLINGUAL Q24H 08/03/18 08/03/18 History diazepam 10 mg PO BID PRN 08/03/18 08/03/18 History oxybutynin chloride 5 mg PO TID 08/03/18 08/03/18 History tizanidine 2 mg PO Q6-8H PRN 08/03/18 08/03/18 History Mental Status Examination Appearance: Appropriate Consciousness: Alert Orientation: x4 Motor Activity: Normal gait Speech: Unremarkable Language: Adequate Fund of Knowledge: Adequate Attention and Concentration: Adequate Memory: Unremarkable Mood: Angry Affect: Irritable Thought Process & Associations: Disorganized Thought Content: Appropriate, Bizarre thinking, Hallucinations Hallucination Type: None Delusion Type: Bizarre, Paranoid Suicidal Ideation: No Suicidal Plan: No Suicidal Intention: No Homicidal Ideation: No Homicidal Plan: No Homicidal Intention: No Insight: Poor Judgment: Poor Assessment and Plan - Assessment (1) Unspecified psychosis Code(s): F29 - Unspecified psychosis not due to a substance or known physiological condition Status: Acute - Plan Plan: On psychiatric reevaluation today the patient continues to present irritable, superficially cooperative, demanding, but he is no agitated, he is no restraint anymore. The patient has a persistent, encapsulated, quite fixed paranoid delusion of being kidnapped and harmed by nurses "and those people"secondary to this he has been quite agitated and also aggressive in the medical floor. Apparently this paranoia has been increased in intensity and frequency in the last 2 days. Patient had to be medicated with Haldol 2 mg IV and physically restrained in order to calm down. Patient apparently does not have any previous psychiatric history, no pre-suicide attempts, no previous psychiatric hospitalizations. Given his level of psychosis and agitation the patient has elevated risk of danger to self, will be admitted in psychiatry for stabilization and safety. I will Mcmullen act the patient. No collateral information available at this moment. Will order Haldol 5 mg IM every 8 hours as needed aggressive behavior and agitation. Will increase quetiapine to 50 mg twice daily for behavioral dysregulation. Discontinue medication if QTC is over 460. QTC now is 429. Transfer to [facility] psych once medically appropriate. Patient widely discussed with primary medical team and nursing charge. Support , motivation, psych education provided. Justification for Continued Inpatient Stay: To be admitted in psychiatry
[2018-08-09] MEDS: amLODIPine 10 MG Tablet PO SCH (14:30)
[2018-08-09] MEDS: Duloxetine 60 MG DR Capsule PO SCH (14:30)
[2018-08-09] MEDS: Gabapentin 300 MG Capsule PO SCH ×3 (14:30→18:17)
[2018-08-09] MEDS: Senna/Docusate Sodium 8.6/50 MG Tablet PO SCH (21:07)
[2018-08-09] MEDS: Metoprolol Tartrate 25 MG Tablet PO SCH (21:07)
[2018-08-10 07:41] LABS: Calcium 8.6 mg/dL (8.5-10.1); Carbon Dioxide 28.9 meq/L (21.0-32.0); Potassium 3.8 meq/L (3.5-5.1)
[2018-08-10 07:42] LABS: Chol/HDL Ratio 5.33 Ratio; HDL Cholesterol 25.5 mg/dL (40.0-60.0)
[2018-08-10] MEDS: Metoprolol Tartrate 25 MG Tablet PO SCH (09:08)
[2018-08-10] MEDS: Duloxetine 60 MG DR Capsule PO SCH (09:08)
[2018-08-10] MEDS: Gabapentin 300 MG Capsule PO SCH ×3 (09:08→17:27)
[2018-08-10] MEDS: amLODIPine 10 MG Tablet PO SCH (09:09)
[2018-08-10] MEDS: Senna/Docusate Sodium 8.6/50 MG Tablet PO SCH ×2 (09:09→20:25)
[2018-08-10] MEDS ORDERED: QUEtiapine 100 MG Tablet PO SCH (12:30)
--- NOTE | 2018-08-10 13:45 | P.CONIM ---
History of Present Illness Service: [facility] Consult date: 08/10/18 Requesting Physician: Thomas Arzate Reason for Consult: Medical management Primary Care Provider: UNKNOWN Chief Complaint: sob History of Present Illness: Mr. Vee is a 73-year-old male with history of hypertension, tobacco abuse, probable COPD. Patient initially presented to the hospital on 08/03/2018 for shortness of breath and generalized weakness. He was found lethargic, was coughing with minimal sputum production. He was found with acute hypoxemia secondary to pneumonia. He was put on BiPAP started on duo nebs and empiric IV antibiotics. Pulmonology was consulted. Patient had a CT of the chest done showing patchy airspace disease in both lung bases left worse than right. Blood cultures remain negative. Patient was titrated off BiPAP to nasal cannula, he was changed to p.o. antibiotics. During admission he was found very paranoid and psychiatry was consulted. He did require restraints and was started on quetiapine. Psychiatry recommended admission to medical psych when medically clear. Patient was stabilized and discharged to psychiatry on 08/09. Pt. is evaluated in medical psych, he is sleepy, awakes to voice, oriented x 2. He was given Mead and Gabapentin. He denies any CP, no sob, no cough, no sputum. Recent laboratory workup is stable, no fever. [facility] are consulted to assist with medical management. Review of Systems Review of Systems: all other systems reviewed are negative (unreliable historian ) [facility] Medical History Medical History Coronary artery disease (Acute) Depression (Acute) Hepatitis C (Acute) History not obtained (Acute) Surgical History Surgical History No history of previous surgery (Acute) Family History Family History Other No pertinent family history Social History Social History Substance History: Past History Second Hand Smoke Exposure: Yes Smoking Status: Current every day smoker Tobacco Type: Cigarettes How Often Do You Have a Drink Containing Alcohol: Monthly or less Recent Travel in [facility] within the Last 8 Weeks: No Recent Out of Country Travel within the Last 8 Weeks: No Substance Abuse Detail Opiates: Substance Use Status: Sustained Remission Substance Abuse Comment: 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 Reason for Use: Get High Medications and Allergies Allergies Allergy/AdvReac Type Severity Reaction Status Date / Time penicillin G Allergy Unknown UNKNOWN Verified 08/03/18 07:53 Home Medications Medication Instructions Recorded Confirmed Type duloxetine 60 mg PO DAILY 03/20/18 08/03/18 History gabapentin 300 mg PO TID 03/20/18 08/03/18 History metoprolol tartrate 50 mg PO BID 03/20/18 08/03/18 History omeprazole 40 mg PO DAILY 03/20/18 08/03/18 History ranitidine HCl [Zantac] 150 mg PO BID 03/20/18 08/03/18 History tizanidine [Zanaflex] 2 mg PO TID PRN 03/20/18 08/03/18 History amlodipine 10 mg PO DAILY 08/03/18 08/03/18 History buprenorphine-naloxone [Suboxone] 1 film SUBLINGUAL Q24H 08/03/18 08/03/18 History diazepam 10 mg PO BID PRN 08/03/18 08/03/18 History oxybutynin chloride 5 mg PO TID 08/03/18 08/03/18 History tizanidine 2 mg PO Q6-8H PRN 08/03/18 08/03/18 History Active Medications: Active Medications Hydrocodone Bitart/Acetaminophen (Mead 5/325) 1 tab PO Q6H PRN PRN Reason: acute pain >4 Last Admin: 08/10/18 12:59 Dose: 1 tab Al Hydrox/Mg Hydrox/Simethicone (Mag-Al Plus Susp Liq) 30 ml PO Q6H PRN PRN Reason: DYSPEPSIA Al Hydroxide/Mg Hydroxide (Milk Of Magnesia Liq) 30 ml PO Q12H PRN PRN Reason: Mild Constipation Amlodipine Besylate (Norvasc) 10 mg PO DAILY [facility] Last Admin: 08/10/18 09:09 Dose: 10 mg Bisacodyl (Dulcolax Supp) 10 mg RECTAL DAILY PRN PRN Reason: SEVERE CONSITIPATION Cefuroxime Axetil (Ceftin) 500 mg PO BID [facility] Last Admin: 02/26/19 09:08 Dose: 500 mg Diazepam (Valium) 10 mg PO BID PRN PRN Reason: Anxiety Diphenhydramine HCl (Benadryl) 50 mg PO HS PRN PRN Reason: INSOMNIA Duloxetine HCl (Cymbalta) 60 mg PO DAILY [facility] Last Admin: 08/10/18 09:08 Dose: 60 mg Gabapentin (Neurontin) 300 mg PO TID [facility] Last Admin: 08/10/18 12:59 Dose: 300 mg Lactulose (Lactulose Liq) 30 ml PO DAILY PRN PRN Reason: SEVERE CONSITIPATION Metoprolol Tartrate (Lopressor) 50 mg PO BID [facility] Last Admin: 08/10/18 09:08 Dose: 50 mg Quetiapine Fumarate (Seroquel) 50 mg PO BID [facility] Last Admin: 08/10/18 13:35 Dose: 50 mg Senna/Docusate Sodium (Stacie-Colace) 1 tab PO BID [facility] Last Admin: 08/10/18 09:09 Dose: 1 tab Sennosides (Senokot) 17.2 mg PO Q12H PRN PRN Reason: Moderate Constipation Physical Exam Vital signs: Vital Signs 08/09/18 17:59 08/09/18 18:00 08/09/18 23:30 Temperature 98.3 F Pulse Rate 62 71 Respiratory Rate 16 20 Blood Pressure 138/63 Pulse Oximetry 88 L 92 L 96 Intake & Output 08/09/18 08/10/18 08/10/18 18:59 06:59 18:59 Intake Total 240 / 240 240 / 240 360 / 360 Balance 240 / 240 240 / 240 360 / 360 Weight 88.3 kg Intake: Oral 240 / 240 240 / 240 360 / 360 Other: # Voids 1 2 Weight On Admission 88.3 kg Narrative: GENERAL: 73-year-old elderly male, no apparent distress SKIN: Warm and dry. HEAD: Atraumatic. Normocephalic. EYES: Pupils equal and round. No scleral icterus. No injection or drainage. ENT: No nasal bleeding or discharge. Mucous membranes pink and moist. NECK: Trachea midline. No JVD. CARDIOVASCULAR: Regular rate and rhythm. RESPIRATORY: Breath sounds diminished at bases, poor respiratory effort, no accessory muscle use. GASTROINTESTINAL: Abdomen soft, non-tender, nondistended. Hepatic and splenic margins not palpable. MUSCULOSKELETAL: Extremities without clubbing, cyanosis, or edema. No obvious deformities. Pedal pulses 2+ bilateral NEUROLOGICAL: Lethargic, awakes to voice, oriented x2. Following commands. No focal deficits PSYCHIATRIC: Flat affect, poor historian., This time Results Labs CBC & Chem 7: 08/10/18 06:31 Assessment and Plan (1) Unspecified psychosis: Code(s): F29 - Unspecified psychosis not due to a substance or known physiological condition Status: Acute Plan 73-year-old male with history of tobacco abuse, hypertension. Initially admitted with shortness of breath. Was found with acute hypoxemic respiratory failure requiring BiPAP. He was treated for pneumonia, cultures remain negative. During hospitalization, patient developed paranoia and was agitated requiring restraints. Psychiatry was consulted and recommended admission to psychiatric unit. Hospitalist service is consulted for medical management Recent respiratory failure requiring BiPAP, currently stable on oxygen at 2 L Pneumonia -Titrate oxygen to keep sats greater than 90 -will order DuoNeb every 6 -Monitor for respiratory distress -Continue with Ceftin 500 mg p.o. twice daily for total of 10 days Acute psychosis, no prior psychiatric hospitalizations, no history of mental illness -Continue with psychiatric treatment Continue with Seroquel 50 mg twice daily Hypertension -Continue with amlodipine in metoprolol -Monitor blood pressure and adjust medications as necessary Tobacco abuse Patient smokes 1 pack a day -Approximately 15 minutes was spent counseling the patient is cessation techniques. Understands continuing to smoke could lead to stroke and , worsening of COPD. Benefits of stopping also presented to the patient. Patient verbalized desire to "give it a try" regarding smoking cessation and its benefits. -Nicotine patch recommended. Possible history of overactive bladder - oxybutynin was discontinued, not appropriate for older males Chronic pain -continue Gabapentin -Continue Mead prn, change to q 8 prn. Pt. too sedated today after Seroquel and Gabapentin. DVT prophylaxis -ambulatory Continue PT for eval and tx Medications reviewed. Plan of care discussed with RN, pt, and attending. Thank you for this consultation, we will continue to follow. Code Status: Full code Discussed Condition With: RN, pt Dr. Call Discharge Planning: Per psych team _ (1) Unspecified psychosis Qualifiers: Psychosis type: Schizoaffective disorder type: Schizophrenia type:
--- NOTE | 2018-08-10 15:11 | P.PNPSY ---
Subjective Remarks: Patient seen for follow up; chart reviewed. Discussion with nursing staff reported patient will be sedated overnight. Patient was found lying in hospital bed, cooperative. Patient states that he is 63 years old (as per chart patient is 73 years old), patient is alert and oriented to person and place and month only. Patient states that he does not recall events prior to his admission but that at this time he is feeling "fine". Patient reports having no difficulty with sleep or appetite and that his mood has been good, denies any shortness of breath at this time but did recall having lived at assisted living facility for the past couple of months prior to this admission. He mentions that he had been living in apartment for quite some time with the assistance of his sister did pay for the apartment but was able to continue to do so when his sister recently and had to move into an assisted living facility as previously stated. He states that when he had gotten " picked up" he believes he was taken to the hospital because unable to recall details of his admission. He denies any paranoid delusions at this time, denies any perceptual services. When reminded of recent behavior of agitation requiring restraints and ETO's on the medical floor patient states he does not recall. Patient mentioned that he recalls his father having at 14 years old and his mother committed suicide thereafter at that time. He mentions currently undergoing grieving from the passing of his sister whom he states was very close to him which occurred several months ago. Review of Systems All other systems reviewed negative except as stated in HPI Mental Status Examination Appearance: Appropriate Consciousness: Alert Orientation: x4 Motor Activity: Normal gait Speech: Unremarkable Language: Adequate Fund of Knowledge: Adequate Attention and Concentration: Adequate Memory: Unremarkable Mood: Appropriate Affect: Appropriate Thought Process & Associations: Other ([place]) Thought Content: Appropriate, Bizarre thinking Hallucination Type: None Delusion Type: Bizarre, Paranoid Suicidal Ideation: No Suicidal Plan: No Suicidal Intention: No Homicidal Ideation: No Homicidal Plan: No Homicidal Intention: No Insight: Poor Judgment: Poor Assessment and Plan - Assessment (1) Unspecified psychosis Code(s): F29 - Unspecified psychosis not due to a substance or known physiological condition Status: Acute - Plan Plan: I have seen and examined this patient, reviewed the documentation, and I agree and concur with Dr. Arzate assessment and plan. I have completed second opinion for the petition for involuntary hospitalization. Consult appreciated. Petition for involuntary hospitalization completed, patient has capacity consent for treatment. Patient will continue quetiapine 50 mg p.o. twice daily for psychosis and Cymbalta 60 mg p.o. daily for neuropathic pain. Patient to continue rest of medications, Hospital input appreciated. Discharge planning in progress. Justification for Continued Inpatient Stay: At risk of further decompensation at lower level care.
[2018-08-10 17:04] LABS: Hemoglobin A1c 5.5 % (4.3-6.0)
[2018-08-10 17:24] VITALS: BP 121/58; TEMP 97.2
[2018-08-10 17:27] VITALS: PULSE 39; RESP 12
[2018-08-10] MEDS ORDERED: Acetaminophen 325 MG Tablet PO PRN (18:18)
[2018-08-10 20:57] VITALS: O2SAT 97
--- NOTE | 2018-08-11 17:36 | P.DSPSY ---
Psychiatry Discharge Summary Inpatient Psychiatric care?: Yes Advance Directives: No Mental Health Advance Directive: No Health Care Proxy: No - Admission Admission Date: August 09, 2018 13:15 - Admission Diagnosis (1) Unspecified psychosis Code(s): F29 - Unspecified psychosis not due to a substance or known physiological condition Brief History: 08/06/2018 The patient is a 73-year-old man, domiciled in [facility], , father of a 40-year-old daughter, supported by Social Security, he denies previous psychiatric history, denies previous suicidal attempts, denies previous psychiatric hospitalizations, with medical history of hypertension, chronic smoker, who was brought to ER with shortness of breath and generalized weakness. patient was somewhat lethargic at the time of initial evaluation and most of the information was obtained from ER documents. he says that he's had some sob for the past few days. has minimal cough and sputum production with no report of fever. he denies any pain. he was on BiPaP at the time of the evaluation. Consulted to psychiatry due to aggressive behavior and agitation in the medical floor. On my psychiatric evaluation today the patient is restrained in 4 points, he is calm, superficially cooperative. The patient is very paranoid. As per nursing charge the patient has been paranoid for at least 24 hours. The paranoia consists are not stating that nurses "and people "have been trying to kill him and want to kidnap him". He says that for the last 2 days he has been seeing people coming inside his room, talking about him in the house, and he is very sure that they want his money. The patient seems to be very distressed by it. He has been very agitated and verbally hostile secondary to this paranoia. Had to be restrained in 4 points to calm him down. To decrease his paranoia and agitation he also had to be medicated with Haldol 2 mg. Apparently his paranoia increases with the presence of people around him. Probably paranoia he also has augmented with distress and underlying medical conditions. Other than this the patient reports to be in a good mood, he denies symptoms of depression, he denies anxiety, denies suicidal and homicidal ideation, he denies visual and auditory hallucinations. He is fully oriented x3, he is attentive, able to be verbally directed during my evaluation. 08/09/2018 10:30 AM: Patient was seen today for psychiatric reevaluation. Patient calm, cooperative, but continues to be disorganized and paranoid. The patient tells me that he has been very concerned because his mother is admitted here in the medical floor. He says that he has been hearing her crying close to here I dont know who is torturing my mother. The patient reports to be depressed due to this reason. He also reports that he continues to mistrust nurses and staff in the hospital. He has a very poor insight of perceptual disturbances. He is fully oriented x3. There is no attention deficit, there is no fluctuation of consciousness at the moment. As per nurse in charge, the patient has been doing a little bit better, but continues to be paranoid. There is no agitation, no aggressive behavior, he was able to be released from restraints. PPHx: No previous psychiatric history, no pre-suicide attempts, no previous psychiatric hospitalization PMHx: Hypertension Substance Hx: Denies the use of alcohol and illegal drug Family Hx: No family psychiatric history Social Hx: Patient is domiciled in [facility], , he has a 40-year- old daughter, unemployed, supported by Social Security Tobacco Use In Past 30 Days: Yes How Often Do You Have a Drink Containing Alcohol: Monthly or less Hospital Course: Patient is a 73 y/o man, domiciled in [facility], , father of a 40-year-old daughter, supported by Social Security, he denies previous psychiatric history, denies previous suicidal attempts, denies previous psychiatric hospitalizations , with medical history of hypertension, chronic smoker, who was brought to ER with shortness of breath and generalized weakness and consulted to psychiatry due to aggressive behavior and agitation in the medical floor. Patient upon arrival was not recalling recent agitation nor paranoia. Patient was later found to have HR in 30s, EKG showed sinus bradycardia with 1st degree AV block and although asymptomatic was transferred to inpatient telemetry for further evaluation and workup. Patient to be followed by psychiatry while on medical floor. - Discharge Discharge Date: 08/11/18 - Discharge Diagnosis (1) Unspecified psychosis Code(s): F29 - Unspecified psychosis not due to a substance or known physiological condition Status: Acute Discharge Disposition: Discharged to medical service. - Discharge Instructions Discharge Diet: Heart Healthy Diet Activities You Can Perform: Weight Bearing As Tolerat - Discharge Time > 30 minutes Mental Status Examination Appearance: Appropriate Consciousness: Alert Orientation: x4 Motor Activity: Normal gait Speech: Unremarkable Language: Adequate Fund of Knowledge: Adequate Attention and Concentration: Adequate Memory: Unremarkable Mood: Appropriate Affect: Appropriate Thought Process & Associations: Other ([place]) Thought Content: Appropriate, Bizarre thinking Hallucination Type: None Delusion Type: Bizarre, Paranoid Suicidal Ideation: No Suicidal Plan: No Suicidal Intention: No Homicidal Ideation: No Homicidal Plan: No Homicidal Intention: No Insight: Poor Judgment: Poor Discharge/Advance Care Plan - Results Vital Signs: Last Vital Signs Temp 97.2 F L 08/10/18 17:21 Pulse 39 L 08/10/18 17:26 Resp 12 08/10/18 17:26 BP 121/58 L 08/10/18 17:21 Pulse Ox 97 08/10/18 20:56 Lab Results: Abnormal Lab Results 08/10/18 06:31 Hemoglobin A1c 5.5 Laboratory Results Hemoglobin A1c 5.5 % (4.3-6.0) 08/10/18 06:31 Triglycerides 155 mg/dL (42-150) H 08/10/18 06:31 Cholesterol 136 mg/dL (120-200) 08/10/18 06:31 LDL Cholesterol, Calc 80 mg/dL (0-99) 08/10/18 06:31 HDL Cholesterol 25.5 mg/dL (40.0-60.0) L 08/10/18 06:31 Summary of Procedures: none Pending Results: None - Medications Number of antipsychotic medications at discharge: 1 - Discharge Care Plan Goals to Promote Your Health: * To prevent worsening of your condition and complications * To maintain your health at the optimal level Directions to Meet Your Goals: Take your medications as prescribed Follow your dietary instruction Follow activity as directed Keep your appointments as scheduled Take your immunizations and boosters as scheduled If your symptoms worsen call your PCP, if no PCP go to Urgent Care Center or Emergency Room For 05/01 questions related to your inpatient stay or results of tests pending at discharge, please contact Dr. Hamilton Chacon MD at Smoking is Dangerous to Your Health. Avoid second hand smoking
--- NOTE | 2018-08-11 21:54 | ECG ---
Date Performed: 08/10/2018 Time Performed: 18:17:51 PTAGE: 73 years EKG: SINUS BRADYCARDIA WITH FIRST DEGREE AV BLOCK BORDERLINE LEFT AXIS DEVIATION ABNORMAL ECG PREVIOUS TRACING : 08/03/2018 01.16 Since the previous tracing, no significant change noted DOCTOR: Quinn Rice Interpretating Date/Time 08/11/2018 21:53:07
== END 2018-08-11 00:41 | disposition short-term general hospital (02) | DRG 885 ==
LOC: H4EA 13:15
PROVIDERS: ADMIT Student in an Organized Health Care Education/Training Program; ATTEND Student in an Organized Health Care Education/Training Program